=== PATIENT | male | born 1970 | race Caucasian/White ===

== ENCOUNTER 2018-03-02 01:57 | Emergency (ER) | payer SELFPAY ==
--- NOTE | 2018-03-02 02:09 | PDOC ---
History of Present Illness - General Stated Complaint: VOMITING Time Seen by Provider: 03/02/18 02:09 History Source: Patient Exam Limitations: No Limitations - History of Present Illness Initial Comments: 03/02/18 02:40 47 year old male with PMH HLD, ETOH dependence presented to ED for abdominal pain x5 days. He stated his abdominal pain is located to his entire abdomen. He admitted to abdominal fullness, nausea, vomiting, diarrhea, blood on toilet paper. He denied fever, chest pain, shortness of breath, cough. He stated he drinks 10 large beers a day, today he drank 3 large beers. He stated he has been an everyday drinker for 25 years. Allergies: NKDA Past History - Past Medical History Allergies/Adverse Reactions: Allergies Allergy/AdvReac Type Severity Reaction Status Date / Time No Known Allergies Allergy Verified 03/02/18 02:24 Home Medications: Ambulatory Orders NK [No Known Home Medication] 03/02/18 Review of Systems - Review of Systems Able to Perform ROS?: Yes Comments:: 03/02/18 02:42 General: denied fever, chills, night sweats, generalized weakness. HEENT: denied sore throat, rhinorrhea, ear pain. Heart: denied chest pain, palpitations, syncope, lower extremity swelling, diaphoresis. Respiratory: denied shortness of breath, cough, sputum production, hemoptysis. Abdomen: admitted to abdominal pain, nausea, vomiting, diarrhea, blood in stool. : denied dysuria, increased urinary frequency, hematuria, urinary incontinence , flank pain. Back: denied back pain. Musculoskeletal: denied joint pain, muscle pain, joint swelling. Neurological: denied headache, dizziness, numbness, tingling, weakness. Skin: denied rash, laceration, abrasion *Physical Exam - Physical Exam Comments: 03/02/18 02:44 Constitutional: Well-nourished, Well-developed, appearing stated age. HEENT: head is normocephalic, atraumatic. EOMI. PERRLA. Neck: supple. Full ROM. Heart: regular rhythm. no murmurs, rubs or gallops. Lungs: clear to auscultation bilaterally. no crackles, rhonchi or wheezing. no stridor. Abdomen: soft, distended. nontender to examination. normal bowel sounds. no rebound, guarding, masses. Extremities: Peripheral pulses intact. No lower extremity edema. Neurological: CN 2-12 grossly intact. Moves all four extremities. Psych: awake, alert, oriented x3. Follows commands. Answers questions appropriately. Rectal: multiple small ulcerations to perianal area. No hemorrhoids. No gross blood. ED Treatment Course - LABORATORY CBC & Chemistry Diagram: 03/02/18 02:50 03/02/18 02:50 Medical Decision Making - Medical Decision Making 03/02/18 02:45 47 year old male with above PMH presented to ED for abdominal pain associated with n/v/d/blood on toilet paper. Initial Vital Signs Temp Pulse Resp BP Pulse Ox 98.7 F 88 19 153/93 97 03/02/18 01:57 03/02/18 01:57 03/02/18 01:57 03/02/18 01:57 03/02/18 01:57 Afebrile. No tachycardia. No tachypnea. Mild hypertension. No hypoxia on room air. Blood likely from ulcerations to perianal area. Labs ordered: CBC, CMP, lipase, ammonia, ETOH level, salicyclate level, acetaminophen level Imaging ordered: CXR, CT abdomen/pelvis Medications ordered: banana bag, pepcid, maaloz, zofran 03/02/18 03:20 CBC WBC 5.0 K/mm3 (4.0-10.0) 03/02/18 02:50 RBC 4.35 M/mm3 (4.00-5.60) 03/02/18 02:50 Hgb 12.9 GM/dL (11.7-16.9) 03/02/18 02:50 Hct 36.6 % (35.4-49) 03/02/18 02:50 MCV 84.1 fl (80-96) 03/02/18 02:50 MCH 29.7 pg (25.7-33.7) 03/02/18 02:50 MCHC 35.4 g/dl (32.0-35.9) 03/02/18 02:50 RDW 13.8 % (11.9-15.9) 03/02/18 02:50 Plt Count 199 K/MM3 (134-434) 03/02/18 02:50 MPV 7.6 fl (7.5-11.1) 03/02/18 02:50 Absolute Neuts (auto) 3.1 K/mm3 (1.5-8.0) 03/02/18 02:50 Neutrophils % 61.9 % (42.8-82.8) 03/02/18 02:50 Lymphocytes % 30.5 % (8-40) 03/02/18 02:50 Monocytes % 5.8 % (3.8-10.2) 03/02/18 02:50 Eosinophils % 1.0 % (0-4.5) 03/02/18 02:50 Basophils % 0.8 % (0-2.0) 03/02/18 02:50 Nucleated RBC % 0 % (0-0) 03/02/18 02:50 No leukocytosis. No left shift. - SBP unlikely, no fever No anemia. 03/02/18 03:39 CMP Sodium 137 mmol/L (136-145) 03/02/18 02:50 Potassium 3.7 mmol/L (3.5-5.1) 03/02/18 02:50 Chloride 102 mmol/L (98-107) 03/02/18 02:50 Carbon Dioxide 26 mmol/L (21-32) 03/02/18 02:50 Anion Gap 9 MMOL/L (8-16) 03/02/18 02:50 BUN 15 mg/dL (7-18) 03/02/18 02:50 Creatinine 0.8 mg/dL (0.55-1.3) 03/02/18 02:50 Creat Clearance w eGFR > 60 (>60) 03/02/18 02:50 Random Glucose 97 mg/dL (74-106) 03/02/18 02:50 Calcium 7.2 mg/dL (8.5-10.1) L 03/02/18 02:50 Total Bilirubin 0.5 mg/dL (0.2-1) 03/02/18 02:50 AST 520 U/L (15-37) H 03/02/18 02:50 ALT 614 U/L (13-61) H 03/02/18 02:50 Alkaline Phosphatase 212 U/L (45-117) H 03/02/18 02:50 Ammonia 59.75 umol/L (11-32) H 03/02/18 02:50 Total Protein 6.8 g/dl (6.4-8.2) 03/02/18 02:50 Albumin 3.3 g/dl (3.4-5.0) L 03/02/18 02:50 Lipase 408 U/L (73-393) H 03/02/18 02:50 No electrolyte abnormalities. No ROBERT. Transaminitis. Mildly elevated ammonia. Mildly elevated lipase. CXR: no free air under diaphragm. cardiomegaly. no infiltrate. sharp costophrenic angles. no pneumothorax. - Pending official read Pending CT. 03/02/18 03:59 ETOH 303. Salicyclate negastive. Acetaminophen negative. Guiaic negative. 03/02/18 05:12 CT abdomen/pelvis report: enlarged and fatty liver. GB distended. no gallstones seen. urinary bladder overdistended. moderate bilateral hydronephrosis. - Sam ordered - No ROBERT 03/02/18 06:18 2L urine drained from catheter. Pt reported 0/10 abdominal pain. Abdomen soft, nontender. Pt to be discharged with leg bag, PCP, urology and GI follow up. *DC/Admit/Observation/Transfer Diagnosis at time of Disposition: Urinary retention, Transaminitis, Elevated lipase, EtOH dependence - Discharge Dispostion Disposition: HOME Condition at time of disposition: Improved Decision to Admit order: No - Referrals Referrals: [facility] [place] [facility] [place] [Provider Group] - Patient Instructions Printed Discharge Instructions: How to Care for Your Sam Catheter -- Male, DI for Alcohol Abuse Additional Instructions: You were seen today for abdominal pain. Your bladder was distended with urine. You have an obstruction to the outflow of your urine. You NEED to follow up with a urologist in 1-2 days. I have provided you with multiple referrals, tell them you were seen in the Emergency Department, have bladder outflow obstruction , had a catheter placed, and need a prompt appointment. Your lab work showed your drinking has affected your liver and pancreas. You NEED to follow up with a hand roller engraver in 1-2 days. I have provided you with multiple referrals. Follow up with a primary care doctor in 1-2 days. I have given you a referral for our free clinic, call today and ask for the soonest appointment, tell them you were seen in the Emergency Department, had a catheter placed, and need to be seen promptly. You are going to be discharged with the catheter in place. I have included information for how to care for the catheter. Return to the Emergency Department for increasing pain, fever, chest pain, shortness of breath or any other new, worsening or concerning symptoms. I have provided you with detox facilities you can call and go to for alcohol detox. It is dangerous to stop drinking immediately, you can have a seizure and . The number for our detox facility is . Hoy te vieron por dolor abdominal. Salcido vejiga estaba distendida con orina. Usted tiene aayush obstruccin en el flujo de salida de salcido orina. NECESITA realizar un seguimiento con un urlogo en 1 o 2 narayanan. Joann greer proporcionado mltiples referencias, dgales que lo atendieron en el Departamento de Emergencias, que tiene aayush obstruccin del flujo de la vejiga , que le colocaron un catter y que necesita aayush marcial inmediata. Salcido trabajo de laboratorio mostr que salcido consumo de alcohol pichardo afectado salcido hgado y pncreas. NECESITA realizar un seguimiento con un gastroenterlogo en 1 o 2 narayanan. Fausto greer proporcionado mltiples referencias. Raven un seguimiento con un mdico de atencin primaria en 1-2 narayanan. Joann greer dado aayush referencia para nuestra clnica gratuita, llame keviny y solicite la marcial ms rpida, dgales que lo atendieron en el Departamento de Emergencias, que le colocaron un catter y que deben ser atendidos con prontitud. Usted ser dado de eddie con el catter colocado. He incluido informacin sobre guard immigration cuidar el catter. Regrese al Departamento de Emergencias para aumentar el dolor, la fiebre, el dolor en el pecho, la falta de aliento o cualquier otro sntoma nuevo, que empeore o relacionado. Joann greer proporcionado instalaciones de desintoxicacin a las que puede llamar y acudir a la desintoxicacin de alcohol. Es peligroso dejar de beber inmediatamente, puede sufrir aayush convulsin y morir. El nmero de nuestras instalaciones de desintoxicacin es . Print Language: THAI - Post Discharge Activity
[2018-03-02 02:23] VITALS: BP 153/93; PULSE 88; TEMP 98.7; BMI 36.1
[2018-03-02] MEDS ORDERED: FAMOTIDINE 20 MG/50 ML IVPB 20 MG/50 ML MG IVPB ONE ×2 (02:47→03:06)
[2018-03-02] MEDS ORDERED: MAG HYDROX/AL HYDROX/SIMETH 30 ML UNIT-DOSE CUP PO ONE (02:47)
[2018-03-02] MEDS ORDERED: ONDANSETRON 4 MG/2 ML VIAL IVPUSH ONE (02:47)
[2018-03-02] MEDS ORDERED: FOLIC ACID INJECTION - 1 MG, THIAMINE HCL 100 MG, MULTIVIT INJECTION ADULT 10 ML in SOD... IVPB ONE (02:47)
[2018-03-02 03:05] LABS: BASO % 0.8 % (0-2.0); HEMATOCRIT 36.6 % (35.4-49); HEMOGLOBIN 12.9 GM/dL (11.7-16.9); LYMPH % 30.5 % (8-40); MCH 29.7 pg (25.7-33.7); MCHC 35.4 g/dl (32.0-35.9); MEAN CELL VOLUME 84.1 fl (80-96); MEAN PLT VOLUME 7.6 fl (7.5-11.1); MONO % 5.8 % (3.8-10.2); NEUT % 61.9 % (42.8-82.8); PLATELET COUNT 199 K/MM3 (134-434); RBC 4.35 M/mm3 (4.00-5.60); RDW 13.8 % (11.9-15.9)
[2018-03-02] MEDS ORDERED: MAG HYDROX/AL HYDROX/SIMETH 30 ML UNIT-DOSE CUP ONE (03:05)
[2018-03-02] MEDS ORDERED: ONDANSETRON 4 MG/2 ML VIAL ONE (03:06)
[2018-03-02 03:20] LABS: INR 1.07 (0.83-1.09); PROTHROMBIN TIME (PATIENT) 12.6 SEC (9.7-13.0)
[2018-03-02 03:23] LABS: ACTIVATED PTT 28.6 SECONDS (25.2-36.5)
[2018-03-02 03:25] LABS: ALBUMIN 3.3 g/dl (3.4-5.0); ALK PHOS 212 U/L (45-117); ANION GAP 9 MMOL/L (8-16); BILIRUBIN,TOTAL 0.5 mg/dL (0.2-1); BLOOD UREA NITROGEN 15 mg/dL (7-18); CALCIUM 7.2 mg/dL (8.5-10.1); CHLORIDE 102 mmol/L (98-107); CO2 26 mmol/L (21-32); CREATININE 0.8 mg/dL (0.55-1.3); GLUCOSE,RANDOM 97 mg/dL (74-106); LIPASE 408 U/L (73-393); POTASSIUM 3.7 mmol/L (3.5-5.1); SGOT/AST 520 U/L (15-37); SGPT/ALT 614 U/L (13-61); SODIUM 137 mmol/L (136-145); TOT PROT 6.8 g/dl (6.4-8.2)
--- NOTE | 2018-03-02 04:23 | PDOC ---
Attending Attestation - Resident Resident Name: Kristie Villa - ED Attending Attestation I have performed the following: I have examined & evaluated the patient, The case was reviewed & discussed with the resident, I agree w/resident's findings & plan, Exceptions are as noted - HPI HPI: 03/02/18 04:18 47M daily drinker here with 5 days of worsening n/v/d and diffuse abd px, notes BRB on toilet paper but nothing in toilet - Physicial Exam PE: 03/02/18 04:22 Agree with exam as documented by resident - Medical Decision Making 03/02/18 04:27 Chronic drinker with acutely worsening abd px for the last several days a/w n/v/ d Consider gastroenteritis vs pancreatitis, sbp less likely f/u labs, imaging 03/02/18 06:27 Transaminitis, no bili, vs wnl On re-evaluation after quintero drained 2L of clear yellow urine pt states abd px is resolved no focal tenderness in any quadrant DC with quintero in place, uro f/u, gi f/u
[2018-03-02 06:07] LABS: URINE APPEARANCE CLEAR; URINE BILIRUBIN NEGATIVE (<2.0 mg/dL); URINE COLOR LTYELLOW; URINE GLUCOSE (UA) NEGATIVE (NEGATIVE); URINE KETONE NEGATIVE (NEGATIVE); URINE LEUK ESTERASE NEGATIVE (NEGATIVE); URINE NITRITE NEGATIVE (NEGATIVE); URINE PROTEIN NEGATIVE (NEGATIVE); URINE UROBILINOGEN NEGATIVE mg/dL (0.2-1.0)
== END 2018-03-02 07:11 | disposition home or self-care (01) ==
LOC: JER 01:57
PROC: 3E033GC Introduction of Other Therapeutic Substance into Peripheral Vein, Percutaneous Approach (ICD-10-PCS; principal; 2018-03-02)
DX: R74.0 Nonspecific elevation of levels of transaminase and lactic acid dehydrogenase [LDH] (principal); R74.9 Abnormal serum enzyme level, unspecified; R33.9 Retention of urine, unspecified; F10.20 Alcohol dependence, uncomplicated
CPT/HCPCS: 36415; 71046-TC-FY; 74177-TC; 80053; 80307; 81003; 81015; 82140; 82272; 83690; 85025; 85610; 85730; 86850; 86900; 86901; 87086; 96365; 96368; 96375; 99284-25; J7030

== ENCOUNTER 2018-03-06 01:44 | Inpatient (IN) | payer OTHER ==
[2018-03-06] MEDS ORDERED: SODIUM CHLORIDE 0.9% 500 ML INFUS.BAG IV ONE (02:32)
[2018-03-06] MEDS ORDERED: METOCLOPRAMIDE HCL INJECTION 10 MG/2 ML VIAL IVPUSH ONE (02:32)
[2018-03-06] MEDS ORDERED: METOCLOPRAMIDE HCL INJECTION 10 MG/2 ML VIAL ONE (02:41)
--- NOTE | 2018-03-06 02:47 | PDOC ---
Attending Attestation - Resident Resident Name: BasilioDamon - ED Attending Attestation I have performed the following: I have examined & evaluated the patient, The case was reviewed & discussed with the resident, I agree w/resident's findings & plan, Exceptions are as noted - HPI HPI: 03/06/18 02:42 47-year-old male history of EtOH abuse and urinary retention currently with an indwelling catheter here today complaining of headache and chest pain. Patient states he had been drinking heavily for the last 2 weeks hasn't had a drink since yesterday at 5 PM states that he would like to stop drinking. Since that time he has had chest pain and headaches. He was seen at [facility] earlier today was given a pill states he felt better and went home but when he got home started having severe headache and chest pain again. He states that he has not fallen and hit his head recently however his partner who is here states that he may have fallen recently states he usually drinks a bottle of Bacardi a day no known history of liver disease no fevers no chills does have a family history of an uncle who had heart disease and had an [place] in his 80s patient states he used to smoke but had quit many years ago does not take any perception medications - Physicial Exam PE: 03/06/18 02:45 Awake alert no acute distress head is atraumatic lungs are clear bilaterally heart is regular without any murmurs rubs or gallops abdomen is soft he is mild epigastric right upper quadrant tenderness skin is warm and dry extremities are warm and well-perfused no edema or logically the pain is awake alert and oriented patient does have indwelling Sam catheter with a leg today showing concentrated dark urine - Medical Decision Making 03/06/18 02:46 Differential diagnosis includes ICH electrolyte abnormality renal failure anemia ACS reflux pancreatitis cholelithiasis or cholecystitis plan CT had we' ll workup patient's chest pain with an EKG chest x-ray labs including a troponin we will hold aspirin pending the CT had. Patient will require a right upper quadrant ultrasound CBC CMP lipase 03/06/18 06:36 focused ED ultrasoud RUQ performed, indication abnormal LfT gallbladder wall no thickening no edema. no noted gallstones. mild sludge. no pericholecystic fluid. neg murpy's cbd <4mm, wall < 4mm. impression: normal gallbladder. plat pt with ct head mass, consulted nuersurgery. will admit . chest pain r/o acs, labs otherwise unremarkable. Heart Score/ECG Review #1 ECG reviewed & interpreted by me at: 02:48 General ECG Interpretation: Sinus Rhythm, Normal Intervals, No acute ischemic changes Compared to previous ECG there are: Other (sinus tachycardia 113.)
--- NOTE | 2018-03-06 02:48 | PDOC ---
History of Present Illness <Anastasia Singleton - Last Filed: 03/06/18 05:47> - General History Source: Patient Exam Limitations: No Limitations - History of Present Illness Initial Comments: 03/06/18 02:48 47 yo M with a hx of alcoholism (endorses hx of withdrawals) and urinary retention (currently has quintero for less than week) presents to the emergency department with headache and chest pain. Per the patient, he was seen at [facility] earlier yesterday for alcohol intoxication after having his last drink at 5pm the day prior. He was given "a pill that made me feel better" but denies he was worked up for the chest pain he was having. His chest pain ceased and then came back with concurrent severe headaches. He denies falling, however his female night assistant at bedside states he could have fallen. The patient endorses having fevers. Known alcohol consumption is 1 bottle of bacardi daily with a positive familial hx (uncle) of [place]. Endorses general malaise and nausea. Pmhx: Refer to above Meds: None Allergies: NKDA Social: Refer to above for alcohol. Denies tobacco and substance abuse. <Damon Richmond - Last Filed: 03/06/18 08:40> - General Chief Complaint: Alcohol intoxication Stated Complaint: CHEST PAIN Past History <Anastasia Singleton - Last Filed: 03/06/18 05:47> - Past Medical History COPD: No - Suicide/Smoking/Psychosocial Hx Smoking History: Never smoked Have you smoked in the past 12 months: No Information on smoking cessation initiated: No Hx Alcohol Use: No Drug/Substance Use Hx: No <Damon Richmond - Last Filed: 03/06/18 08:40> - Past Medical History Allergies/Adverse Reactions: Allergies Allergy/AdvReac Type Severity Reaction Status Date / Time No Known Allergies Allergy Verified 03/02/18 02:24 Home Medications: Ambulatory Orders NK [No Known Home Medication] 03/02/18 Review of Systems - Review of Systems Able to Perform ROS?: Yes Is the patient limited Grenadian proficient: No Constitutional: Yes: Fever, Weakness. No: Chills, Diaphoresis HEENTM: No: Recent change in vision, Ear Pain, Nose Pain, Throat Pain, Mouth Pain Respiratory: No: Cough, Shortness of Breath Cardiac (ROS): Yes: Chest Pain. No: Lightheadedness, Palpitations, Syncope ABD/GI: Yes: Nausea. No: Constipated, Diarrhea, Rectal Bleeding, Vomiting, Tarry Stools : No: Burning, Dysuria, Hematuria Musculoskeletal: No: Back Pain Integumentary: No: Rash Neurological: Yes: Headache. No: Tremors, Ataxia Psychiatric: No: Stressors <Damon Richmond - Last Filed: 03/06/18 08:40> *Physical Exam - Vital Signs Last Vital Signs Temp Pulse Resp BP Pulse Ox 99.3 F 85 18 120/85 96 03/06/18 02:02 03/06/18 02:02 03/06/18 02:02 03/06/18 02:02 03/06/18 02:02 <Anastasia Singleton - Last Filed: 03/06/18 05:47> - Vital Signs Last Vital Signs Temp Pulse Resp BP Pulse Ox 99.3 F 85 18 120/85 96 03/06/18 02:02 03/06/18 02:02 03/06/18 02:02 03/06/18 02:02 03/06/18 02:02 - Physical Exam General Appearance: Yes: Nourished, Appropriately Dressed, Disheveled, Alcohol on Breath. No: Apparent Distress HEENT: positive: EOMI, [place], Normal Voice, Symmetrical, Hearing Grossly Normal. negative: Pale Conjunctivae, Scleral Icterus (R), Scleral Icterus (L), Muffled /Hoarse voice, Excessive drooling Neck: positive: Trachea midline. negative: Tender Respiratory/Chest: positive: Lungs Clear, Normal Breath Sounds. negative: Chest Tender, Respiratory Distress, Accessory Muscle Use Cardiovascular: positive: Regular Rhythm, Regular Rate, S1, S2. negative: Systolic Murmur Gastrointestinal/Abdominal: positive: Normal Bowel Sounds, Tender (epigastric, periumbilical, RUQ), Flat, Soft. negative: Distended Male Genitalia: positive: other (catheter in place. urine is orange ) Lymphatic: negative: Adenopathy Musculoskeletal: positive: Normal Inspection. negative: CVA Tenderness Extremity: positive: Normal Capillary Refill, Normal Inspection, Normal Range of Motion. negative: Tender Integumentary: positive: Normal Color, Dry, Warm Neurologic: positive: hat parts cutter machine II-XII NML intact, Alert, Normal Mood/Affect, Normal Response <Damon Richmond - Last Filed: 03/06/18 08:40> Moderate Sedation - Procedure Monitoring Vital Signs: Procedure Monitoring Vital Signs Temperature 99.3 F 03/06/18 02:02 Pulse Rate 85 03/06/18 02:02 Respiratory Rate 18 03/06/18 02:02 Blood Pressure 120/85 03/06/18 02:02 O2 Sat by Pulse Oximetry (%) 96 03/06/18 02:02 <Anastasia Singleton - Last Filed: 03/06/18 05:47> - Procedure Monitoring Vital Signs: Procedure Monitoring Vital Signs Temperature 99.3 F 03/06/18 02:02 Pulse Rate 85 03/06/18 02:02 Respiratory Rate 18 03/06/18 02:02 Blood Pressure 120/85 03/06/18 02:02 O2 Sat by Pulse Oximetry (%) 96 03/06/18 02:02 <Damon Richmond - Last Filed: 03/06/18 08:40> ED Treatment Course - LABORATORY CBC & Chemistry Diagram: 03/06/18 02:44 03/06/18 02:44 - ADDITIONAL ORDERS Additional order review: Laboratory Results 03/06/18 03/06/18 03/06/18 02:55 02:44 02:44 Sodium 136 Potassium 3.4 L Chloride 99 Carbon Dioxide 24 Anion Gap 13 BUN 18 Creatinine 0.8 Creat Clearance w eGFR > 60 Random Glucose 142 H Calcium 6.6 L* Total Bilirubin 1.1 H AST 311 H ALT 321 H Alkaline Phosphatase 225 H Creatine Kinase 381 H Creatine Kinase Index 1.3 CK-MB (CK-2) 5.3 H Troponin I 0.09 H Total Protein 7.0 Albumin 3.0 L Lipase 556 H Urine Color Michelle Urine Appearance Clear Urine pH 6.0 Ur Specific [place] 1.025 Urine Protein 2+ H Urine Glucose (UA) Negative Urine Ketones Trace H Urine Blood 3+ H Urine Nitrite Negative Urine Bilirubin Negative Urine Urobilinogen 4.0 e.u/dl Ur Leukocyte Esterase 2+ H Urine WBC (Auto) 31 Urine RBC (Auto) 69 Urine Bacteria Rare Urine Mucus Rare Alcohol, Quantitative 213.8 H 03/06/18 02:44 RBC 4.72 MCV 82.9 MCHC 35.4 RDW 14.6 MPV 7.4 L Neutrophils % 69.8 Lymphocytes % 21.2 D Monocytes % 7.9 Eosinophils % 0.2 Basophils % 0.9 - RADIOLOGY Radiology Studies Ordered: Category Date Time Status HEAD CT WITHOUT CONTRAST [CT] Stat CT Scan 03/06/18 02:30 Taken - Medications Given in the ED: ED Medications Discontinued Medications Generic Name Dose Route Start Last Admin Trade Name Shandra PRN Reason Stop Dose Admin Lorazepam 2 mg 03/06/18 04:37 03/06/18 04:45 Ativan Injection - IVPUSH 03/06/18 04:38 2 mg ONCE ONE Administration Metoclopramide HCl 10 mg 03/06/18 02:32 03/06/18 02:55 Reglan Injection - IVPUSH 03/06/18 02:33 10 mg ONCE ONE Administration Sodium Chloride 1,000 ml 03/06/18 02:32 03/06/18 02:54 Normal Saline - IV 03/06/18 02:33 1,000 ml ONCE ONE Administration <Anastasia Singleton - Last Filed: 03/06/18 05:47> - LABORATORY CBC & Chemistry Diagram: 03/06/18 07:05 03/06/18 07:05 <Damon Richmond - Last Filed: 03/06/18 08:40> Medical Decision Making - Medical Decision Making 47 yo M with a hx of alcoholism (endorses hx of withdrawals) and urinary retention (currently has quintero for less than week) presents to the emergency department with headache and chest pain. Initial vitals: Initial Vital Signs Temp Pulse Resp BP Pulse Ox 99.3 F 85 18 120/85 96 03/06/18 02:02 03/06/18 02:02 03/06/18 02:02 03/06/18 02:02 03/06/18 02:02 Work up: patient presents to the emergency department with intoxication with complaints of headaches and episodic chest pain that occurred earlier in the day with concurrent symptoms of visual changes but denies nausea and vomiting. headache: possible fall r/o intracranial bleed vs hydrocephalus vs mass effect vs withdrawal from alcohol chest pain: r/o ACS, infectious etiology (PNA) Laboratory Tests 03/06/18 03/06/18 03/06/18 02:44 02:44 02:55 WBC 7.8 RBC 4.72 Hgb 13.9 Hct 39.2 MCV 82.9 MCH 29.3 MCHC 35.4 RDW 14.6 Plt Count 184 MPV 7.4 L Absolute Neuts (auto) 5.5 Neutrophils % 69.8 Lymphocytes % 21.2 D Monocytes % 7.9 Eosinophils % 0.2 Basophils % 0.9 Nucleated RBC % 0 Sodium 136 Potassium 3.4 L Chloride 99 Carbon Dioxide 24 Anion Gap 13 BUN 18 Creatinine 0.8 Creat Clearance w eGFR > 60 Random Glucose 142 H Calcium 6.6 L* Total Bilirubin 1.1 H AST 311 H ALT 321 H Alkaline Phosphatase 225 H Creatine Kinase 381 H Creatine Kinase Index 1.3 CK-MB (CK-2) 5.3 H Troponin I 0.09 H Total Protein 7.0 Albumin 3.0 L Lipase 556 H Urine Color Michelle Urine Appearance Clear Urine pH 6.0 Ur Specific [place] 1.025 Urine Protein 2+ H Urine Glucose (UA) Negative Urine Ketones Trace H Urine Blood 3+ H Urine Nitrite Negative Urine Bilirubin Negative Urine Urobilinogen 4.0 e.u/dl Ur Leukocyte Esterase 2+ H Urine WBC (Auto) 31 Urine RBC (Auto) 69 Urine Bacteria Rare Urine Mucus Rare 03/06/18 04:35 Call was placed to Dr. Zurita at approximately 4:20 am. Will await call back. 03/06/18 04:51 Dr. Zurita states no steroids or seizure prophylaxis needed. 03/06/18 08:40 <Damon Richmond - Last Filed: 03/06/18 08:40> *DC/Admit/Observation/Transfer - Discharge Dispostion Decision to Admit order: Yes <Anastasia Singleton - Last Filed: 03/06/18 05:47> <Damon Richmond - Last Filed: 03/06/18 08:40> Diagnosis at time of Disposition: Brain mass, Alcohol withdrawal, Chest pain
[2018-03-06 02:57] LABS: BASO % 0.9 % (0-2.0); EOS % 0.2 % (0-4.5); HEMATOCRIT 39.2 % (35.4-49); HEMOGLOBIN 13.9 GM/dL (11.7-16.9); LYMPH % 21.2 % (8-40); MCH 29.3 pg (25.7-33.7); MCHC 35.4 g/dl (32.0-35.9); MEAN CELL VOLUME 82.9 fl (80-96); MEAN PLT VOLUME 7.4 fl (7.5-11.1); MONO % 7.9 % (3.8-10.2); NEUT % 69.8 % (42.8-82.8); PLATELET COUNT 184 K/MM3 (134-434); RBC 4.72 M/mm3 (4.00-5.60); RDW 14.6 % (11.9-15.9); WHITE BLOOD COUNT 7.8 K/mm3 (4.0-10.0)
[2018-03-06 03:03] LABS: URINE APPEARANCE CLEAR; URINE BILIRUBIN NEGATIVE (<2.0 mg/dL); URINE COLOR AMBER; URINE GLUCOSE (UA) NEGATIVE (NEGATIVE); URINE KETONE TRACE (NEGATIVE); URINE LEUK ESTERASE 2+ (NEGATIVE); URINE NITRITE NEGATIVE (NEGATIVE); URINE PROTEIN 2+ (NEGATIVE); URINE UROBILINOGEN 4.0 E.U/dl mg/dL (0.2-1.0)
[2018-03-06 03:07] LABS: URINE BACTERIA RARE /hpf (NONE SEEN); URINE MUCUS RARE
[2018-03-06 03:45] LABS: ALK PHOS 225 U/L (45-117); ANION GAP 13 MMOL/L (8-16); BILIRUBIN,TOTAL 1.1 mg/dL (0.2-1); BLOOD UREA NITROGEN 18 mg/dL (7-18); CHLORIDE 99 mmol/L (98-107); CO2 24 mmol/L (21-32); CREATININE 0.8 mg/dL (0.55-1.3); GLUCOSE,RANDOM 142 mg/dL (74-106); LIPASE 556 U/L (73-393); POTASSIUM 3.4 mmol/L (3.5-5.1); SGOT/AST 311 U/L (15-37); SGPT/ALT 321 U/L (13-61); SODIUM 136 mmol/L (136-145)
[2018-03-06 03:49] LABS: CALCIUM 6.6 mg/dL (8.5-10.1)
[2018-03-06] MEDS ORDERED: LORazepam 2 MG/ML SDV VIAL ONE (04:40)
[2018-03-06] MEDS ORDERED: CALCIUM GLUCONATE 10% - 1,000 MG/10 ML VIAL IVPB ONE (05:54)
--- NOTE | 2018-03-06 06:05 | HP ---
CHIEF COMPLAINT: headache, chest pain PCP: HISTORY OF PRESENT ILLNESS: Patient is a 47 y/o M w/ PMHx EtOH abuse, urinary retention, presents with headache and chest pain. Per chart review, was seen at [facility] for intoxication, last drink was 5pm the day prior, drinks 1 bottle bacardi daily, was given unspecified treatment that made him feel better but did not have CP worked up. Previously came to [facility] ED on 03/02 for w/u of abd pain, CT a /p at that time showed hepatic steatosis and distended GB and LFTs were grossly elevated; also had quintero placed for urinary retention prior to d/c. Given ativan in ED and was in lethargic, non-arousable condition following ativan administration. CT head w/o contrast demonstrated 2.3 x 1.9 x 1.7cm parafalcine mass suggestive of meningioma. NeuroSx was consulted, recommended no steroids or seizure prophylaxis. Labs on presentation significant for initial troponin 0.09, LFTs grossly elevated but improved vs 03/02, alcohol 213.8, UA newly positive vs. 03/02 quintero placement, Ca 6.6, K 3.4. EKG sinus tachy w/ old anterior infarct, VS stable at time of encounter, repeat pending. ER course was notable for: (1) newly found meningioma (2) elevated LFTs (3) positive UA Recent Travel: PAST MEDICAL HISTORY: As per HPI PAST SURGICAL HISTORY: unknown Social History: (per chart review) Smoking: no Alcohol: daily bottle of rum Drugs: no Family History: Allergies No Known Allergies Allergy (Verified 03/02/18 02:24) HOME MEDICATIONS: Home Medications Medication Instructions Recorded NK [No Known Home Medication] 03/02/18 REVIEW OF SYSTEMS Could not obtain from sedated patient PHYSICAL EXAMINATION Vital Signs - 24 hr 03/06/18 02:02 Temperature 99.3 F Pulse Rate 85 Respiratory 18 Rate Blood Pressure 120/85 O2 Sat by Pulse 96 Oximetry (%) GENERAL: Sedated on ativan, does not alert to vigorous sternal rub HEAD: atraumatic EYES: could not assess EARS, NOSE, THROAT: could not assess NECK: no JVD, no LAD LUNGS: clear anterior benavides HEART: RRR no m/r/g ABDOMEN: +bs, soft, no pain response to deep palpation MUSCULOSKELETAL: could not assess UPPER EXTREMITIES: 2+ pulses, wwp LOWER EXTREMITIES: 2+ pulses, wwp NEUROLOGICAL: moving 4 extremities simultaneously, no spasticity or rigidity PSYCHIATRIC: could not assess Laboratory Results - last 24 hr 03/06/18 03/06/18 03/06/18 02:44 02:44 02:44 WBC 7.8 RBC 4.72 Hgb 13.9 Hct 39.2 MCV 82.9 MCH 29.3 MCHC 35.4 RDW 14.6 Plt Count 184 MPV 7.4 L Absolute Neuts (auto) 5.5 Neutrophils % 69.8 Lymphocytes % 21.2 D Monocytes % 7.9 Eosinophils % 0.2 Basophils % 0.9 Nucleated RBC % 0 Sodium 136 Potassium 3.4 L Chloride 99 Carbon Dioxide 24 Anion Gap 13 BUN 18 Creatinine 0.8 Creat Clearance w eGFR > 60 Random Glucose 142 H Calcium 6.6 L* Total Bilirubin 1.1 H AST 311 H ALT 321 H Alkaline Phosphatase 225 H Creatine Kinase 381 H Creatine Kinase Index 1.3 CK-MB (CK-2) 5.3 H Troponin I 0.09 H Total Protein 7.0 Albumin 3.0 L Lipase 556 H Urine Color Urine Appearance Urine pH Ur Specific Garner Urine Protein Urine Glucose (UA) Urine Ketones Urine Blood Urine Nitrite Urine Bilirubin Urine Urobilinogen Ur Leukocyte Esterase Urine WBC (Auto) Urine RBC (Auto) Urine Bacteria Urine Mucus Alcohol, Quantitative 213.8 H 03/06/18 02:55 WBC RBC Hgb Hct MCV MCH MCHC RDW Plt Count MPV Absolute Neuts (auto) Neutrophils % Lymphocytes % Monocytes % Eosinophils % Basophils % Nucleated RBC % Sodium Potassium Chloride Carbon Dioxide Anion Gap BUN Creatinine Creat Clearance w eGFR Random Glucose Calcium Total Bilirubin AST ALT Alkaline Phosphatase Creatine Kinase Creatine Kinase Index CK-MB (CK-2) Troponin I Total Protein Albumin Lipase Urine Color Michelle Urine Appearance Clear Urine pH 6.0 Ur Specific Garner 1.025 Urine Protein 2+ H Urine Glucose (UA) Negative Urine Ketones Trace H Urine Blood 3+ H Urine Nitrite Negative Urine Bilirubin Negative Urine Urobilinogen 4.0 e.u/dl Ur Leukocyte Esterase 2+ H Urine WBC (Auto) 31 Urine RBC (Auto) 69 Urine Bacteria Rare Urine Mucus Rare Alcohol, Quantitative ASSESSMENT/PLAN: 47 y/o M w/ PMHx EtOH abuse and urinary retention, p/w chest pain and headache per signout, additionally found to have meningioma, evaluation limited by sedation. #CP -troponemia likely 2/2 demand ischemia, trend troponins -repeat EKG -echocardiogram -cardiac monitoring #LFT abnormalities/GB distention -RUQ US pending -consider MRCP -likely alcoholic hepatitis #meningioma -neuro checks q2h -may be causing headaches, however requires full neuro evaluation after weaning from ativan -treatment only indicated if symptoms can be established -NeuroSx consulted, recommends no steroids or seizure PPx at this time -SRS may be more appropriate treatment given pt's comorbidities, consider radiation oncology consult, will require brain MRI for rad onc referral #electrolyte abnormalities -1g Ca gluconate -K riders x 2 -obtain ionized Ca -trend lytes #alcohol detox -CIWA q4h, notify MD if >8 #UTI -likely 2/2 quintero -quintero change needed -initiated ceftriaxone #FEN -no IVF -monitor and replete lytes -NPO pending NeuroSx evaluation #PPx -DVT: SCDs, no pharmacologic AC pending NeuroSx evaluation -GI: not indicated #code -full #dispo Visit type - Emergency Visit Emergency Visit: Yes Care time: The patient presented to the Emergency Department on the above date and was hospitalized for further evaluation of their emergent condition. - New Patient This patient is new to me today: Yes Date on this admission: 03/06/18 - Critical Care Critical Care patient: No
--- NOTE | 2018-03-06 06:09 | PN ---
Teaching Attending Note Name of Resident: Daryl Arnold ATTENDING PHYSICIAN STATEMENT I saw and evaluated the patient. I reviewed the resident's note and discussed the case with the resident. I agree with the resident's findings and plan as documented. SUBJECTIVE: Seen and examined; please see resident note for further information. Unfortunately when I went to see the patient with my residents he had just recieved Ativan and was frankly unable to provide a history, waking up to tactile stimulation/noxious stimulation briefly then falling back asleep, snoring loudly. No family/friends present to reach. I spoke to ER Attending and resident of record at length regarding the overall care of the patient and thus the history is per their note. Briefly, he was just here for urinary retention and abdominal pain; had a quintero placed and was brought home. He comes back today with documented history as follows per Dr. Singleton: "47-year- old male history of EtOH abuse and urinary retention currently with an indwelling catheter here today complaining of headache and chest pain. Patient states he had been drinking heavily for the last 2 weeks hasn't had a drink since yesterday at 5 PM states that he would like to stop drinking. Since that time he has had chest pain and headaches. He was seen at [facility] earlier today was given a pill states he felt better and went home but when he got home started having severe headache and chest pain again. He states that he has not fallen and hit his head recently however his partner who is here states that he may have fallen recently states he usually drinks a bottle of Bacardi a day no known history of liver disease no fevers no chills does have a family history of an uncle who had heart disease and had an MD in his 80s patient states he used to smoke but had quit many years ago does not take any perception medications." Additional history to be obtained from the patient when he is able to actually provide meaningful history. Admit to medicine service with neurosurgery consult. He does still have his quintero in but wiht no new urological sx can likely followup outpatient with uro. 10 sys ROS couldn't be done due to his mentation PMH and PSH reviewed from chart FH not obtained due to mental status Socially he is a daily drinker per his chart and has been for years; need to confirm the rest of his social history when he is able to provide it Medications could not be confirmed with patient due to mental status OBJECTIVE: VS, labs, imaging reviewed NAD, arousable to noxious stimuli but sleeping and snoring loudly RRR s1/2 no mgr Lungs CTAB but limited exam Abdomen appears nontender but couldn't fully assess due to mentation; nondistended, positive bowel sounds Full neuro exam difficult due to mentation. Reflexes normal, muscle tone is normal, and he does spontaneously move all his extremities. Couldn't fully assess sensorium but given his response to noxious stimuli assumed intact. Couldn't assess gait or cerebellar signs. PERRLA, EOMI. Speech is garbled, downgoing babinski reflex noted Labs show an unremarkable CBC; chemistry significant for K of 3.4, glucose 142. Calcium 6.6 uncorrected with albumin of 3.0, Bili is 1.1 (elevated from earlier this week which was normal). AST and ALT are 311/321 which is slightly lower than last week. Ammonia elevated last week to 59.75. CK elevated to 381 today with CKMB elevated to 5.3 with a CK index of 1.3. Troponin slightly above upper limit of normal at 0.09 with lipase 556 (was 408, neither of them technically qualifying as pancreatitis by lab values alone). Alcohol positive at 213. Imaging shows a 2x2 mass in the frontal lobe consistent with a meningioma; MRI is pending US Abdomen pending Echo pending EKG reviewed No prior echo/cath/stress/scope reports ASSESSMENT AND PLAN: Mr. Torres is currently altered and cannot provide a history but is here for chest pain/abdominal pain and headache found to have a likely meningioma 1) Meningioma -ER spoke with neurosurgery who will see him today. Doens't appear to be unstable with normal VS. Will place on stroke unit with q2H neuro checks and seizure precautions. NSGY advised against steroids/keppra. Will followup on their recs. Can also consider gamma knife, etc. but we need MRI w/wo so this was ordered and is pending -Need fully involved neuro exam with better mentation to fully delineate symptomatology, etc. 2) Chest Pain -Given alcohol, EtOH, etc. history he is at high risk for ACS. EKG results noted; early repol, etc. Difficult to tell if he is having any chest pain due to current mentation. Monitor on telemetry, trend troponin, and stratify risks with TSH, A1c, Lipids and start any appropriate therapies. Furthermore, he appears to have cardiomegaly on his CXR so will go ahead and check an echo- given his long history of alcohol abuse he has high risk of a dilated CM. 3) Headaches -Could be due to intoxication, #1, etc. Need to let him get sober and re- evaluate. Difficult to characterize. -PRN management for now; likely will change when more data available 4) Potential Cystitis -IV Ceftriaxone for now; followup blood and urine cultures. Can't assess if symptomatic but new quintero is definitely a source. Exchange quintero. Followup with urology as outpatient. Not appearing septic at this juncture 5) Hepatitis (likely alcoholic) with hyperbilirubinemia and distended gallbladder, hepatic steatosis and developing cirrhosis -Likely 2/2 EtOH but want to rule out any underlying hepatitis, hepatobiliary pathology. Checking ESR/CRP, checking RUQ u/s. Dilated GB seen on my bedside exam that was also seen on prior CT. Check hepatitis pannel, HIV. -Discriminate score doesn't endorse necessity of steroids -Lipase elevated could be due to the drinking; he doesn't have any zaki signs of biliary obstruction and isn't febrile, but of course will be cautious in the setting of elevated LFTs including bili with lipase. Monitor CMP and consider MRCP and GI consultation. 6) Alcohol Abuse -CIWA protocol with Ativan (librium contraindicated in this case) 7) Elevated Lipase -Discussed above; not frankly at pancreatitis levels. LR@75cc/hr and monitor clinically 8) Hyperglycemia -Checking A1c, SSI if needed 9) Hypokalemia/calcemia -Repleting; check ionized Ca 10) Elevated Ammonia -Consider starting on lactulose; assess for asterixis when ativan wears off 11) AMS -He just got ativan prior to medicine being called for admission which explains his presentation now; needs re-examined and reassessed. He has many different reasons for AMS (encephalopathy from developing ESLD, meningioma, EtOH WD, EtOH intoxication) so it is important to keep these clearly sorted. 12) Urinary Retention -Exchange quintero and followup with urology as outpatient. FENA -LR@75 -PRN replete -NPO until mentation improves -Reassess when mentation improves Full Code
[2018-03-06] MEDS ORDERED: KCL 10 MEQ IVPB 10 MEQ/100 ML INFUS.BAG IVPB ONE ×2 (06:30→08:40)
[2018-03-06] MEDS: KCL 10 MEQ IVPB 10 MEQ/100 ML INFUS.BAG IVPB SCH ×2 (06:37→08:45)
[2018-03-06] MEDS: LACTATED RINGERS SOLUTION 1,000 ML/1,000 ML INFUS.BAG IV SCH ×2 (06:52→21:15)
[2018-03-06 07:17] LABS: BASO % 0.7 % (0-2.0); EOS % 0.3 % (0-4.5); HEMATOCRIT 35.2 % (35.4-49); HEMOGLOBIN 12.4 GM/dL (11.7-16.9); LYMPH % 20.7 % (8-40); MCH 29.3 pg (25.7-33.7); MCHC 35.1 g/dl (32.0-35.9); MEAN CELL VOLUME 83.3 fl (80-96); MEAN PLT VOLUME 7.5 fl (7.5-11.1); MONO % 5.5 % (3.8-10.2); NEUT % 72.8 % (42.8-82.8); PLATELET COUNT 137 K/MM3 (134-434); RBC 4.23 M/mm3 (4.00-5.60); RDW 14.5 % (11.9-15.9); WHITE BLOOD COUNT 5.4 K/mm3 (4.0-10.0)
[2018-03-06 07:43] LABS: INR 1.15 (0.83-1.09); PROTHROMBIN TIME (PATIENT) 13.6 SEC (9.7-13.0)
[2018-03-06 07:46] LABS: ACTIVATED PTT 31.6 SECONDS (25.2-36.5)
[2018-03-06 07:58] LABS: ALBUMIN 2.6 g/dl (3.4-5.0); ALK PHOS 205 U/L (45-117); ANION GAP 10 MMOL/L (8-16); BLOOD UREA NITROGEN 15 mg/dL (7-18); CHLORIDE 102 mmol/L (98-107); CO2 26 mmol/L (21-32); CREATININE 0.6 mg/dL (0.55-1.3); GLUCOSE,RANDOM 99 mg/dL (74-106); MAGNESIUM 1.7 mg/dL (1.8-2.4); PHOSPHOROUS 2.5 mg/dL (2.5-4.9); POTASSIUM 3.5 mmol/L (3.5-5.1); SGOT/AST 260 U/L (15-37); SGPT/ALT 282 U/L (13-61); SODIUM 139 mmol/L (136-145)
[2018-03-06 08:08] LABS: CHOLESTEROL 189 mg/dL (50-200); HDL CHOLESTEROL 14 mg/dL (40-60); TRIGLYCERIDES 1149 mg/dL (0-150)
[2018-03-06] MEDS ORDERED: FOLIC ACID INJECTION - 1 MG, THIAMINE HCL 100 MG, MULTIVIT INJECTION ADULT 10 ML in SOD... IVPB ONE ×2 (09:11→09:12)
[2018-03-06] MEDS ORDERED: LORazepam 2 MG/ML SDV VIAL IVPUSH PRN (09:35)
[2018-03-06] MEDS ORDERED: MAGNESIUM SULF 50% (8.12 MEQ/2 ML-1 GM VIAL) IVPB ONE (09:37)
--- NOTE | 2018-03-06 09:48 | EKG ---
Test Reason : Blood Pressure : / mmHG Vent. Rate : 077 BPM Atrial Rate : 077 BPM P-R Int : 194 ms QRS Dur : 094 ms QT Int : 400 ms P-R-T Axes : 055 -04 054 degrees QTc Int : 452 ms NORMAL SINUS RHYTHM NORMAL ECG WHEN COMPARED WITH ECG OF 06-MAR-2018 02:00, NO SIGNIFICANT CHANGE WAS FOUND Confirmed by SABA MEDINA MD ([id number]) on 03/06/2018 9:47:59 AM Referred By: Confirmed By:SABA MEDINA MD
--- NOTE | 2018-03-06 09:48 | EKG ---
Test Reason : Blood Pressure : / mmHG Vent. Rate : 113 BPM Atrial Rate : 113 BPM P-R Int : 194 ms QRS Dur : 092 ms QT Int : 310 ms P-R-T Axes : 047 022 032 degrees QTc Int : 425 ms SINUS TACHYCARDIA ANTERIOR INFARCT , AGE UNDETERMINED ABNORMAL ECG NO PREVIOUS ECGS AVAILABLE Confirmed by SAAB MEDINA MD ([id number]) on 03/06/2018 9:48:20 AM Referred By: Confirmed By:SABA MEDINA MD
[2018-03-06] MEDS ORDERED: THIAMINE HCL 200 MG/2 ML VIAL IVPB SCH (10:00)
--- NOTE | 2018-03-06 11:07 | ECHO ---
Name: JOANNA GUTIERREZ Exam:Adult Echocardiogram Study Date: 03/06/2018 09:40 AM Age: 47 yrs Reason For Study: EVAL EF Height: 66 in Weight: 170 lb BSA: 1.9 m2 MMode/2D Measurements & Calculations IVSd: 0.88 cm Ao root diam: 3.4 cm LVIDd: 5.6 cm LA dimension: 3.6 cm LVIDs: 3.2 cm LVPWd: 0.79 cm EDV(Teich): 156.5 ml LAV (MOD-bp): 66.9 ml ESV(Teich): 41.1 ml Doppler Measurements & Calculations MV E max antonio: 63.1 cm/sec TR max antonio: 221.3 cm/sec MV A max antonio: 81.0 cm/sec TR max P.7 mmHg MV E/A: 0.78 MV dec time: 0.12 sec Med Peak E' Antonio: 6.4 cm/sec PI Vmax: 123.5 cm/sec Med E/e': 9.8 Lat Peak E' Antonio: 10.6 cm/sec Lat E/e': 6.0 Procedure A complete two-dimensional transthoracic echocardiogram was performed (2D, M-mode, Doppler and color flow Doppler). Left Ventricle The left ventricle is normal in size. Left ventricular systolic function is normal. Ejection Fraction = 65- 70%. TDI reveals mildly impaired relaxation with normal filling pressure (E/E' 10). No regional wall motion abnormalities noted. Right Ventricle The right ventricle is normal size. The right ventricular systolic function is normal. Atria The left atrial size is normal. Right atrial size is normal. Mitral Valve There is mild mitral annular calcification. There is mild mitral regurgitation. Tricuspid Valve The tricuspid valve is normal in structure and function. There is mild tricuspid regurgitation. Pulmo nary artery systolic pressure is at least 25 mmHg assuming RA pressure of 3 mmHg. Aortic Valve The aortic valve is normal in structure and function. No aortic regurgitation is present. Pulmonic Valve The pulmonic valve is not well visualized. Great Vessels The aortic root is normal size. Pericardium/Pleura There is no pericardial effusion. Interpretation Summary The left ventricle is normal in size. Left ventricular systolic function is normal. No regional wall motion abnormalities noted. Ejection Fraction = 65-70%. TDI reveals mildly impaired relaxation with normal filling pressure (E/E' 10) The right ventricular systolic function is normal. The left atrial size is normal. Right atrial size is normal. There is mild mitral annular calcification. There is mild mitral regurgitation. There is mild tricuspid regurgitation. Pulmonary artery systolic pressure is at least 25 mmHg assuming RA pressure of 3 mmHg There is no pericardial effusion. Previous study is not available for comparison Ramiro Cowan MD 03/06/2018 11:06 AM
--- NOTE | 2018-03-06 13:54 | PN ---
Physical Exam: SUBJECTIVE: Patient seen and examined at bed side this morning. Complaining of mild suprapubic pain, non radiating, not associated with any other symptoms. Denies chest pain, sob, cough, palpitation, nausea or vomiting. Quintero in place. Tele monitor reviewed, no active issues. OBJECTIVE: Vital Signs Period Temp Pulse Resp BP Sys/Orr Pulse Ox Last 24 Hr 98.6 F-99.3 F 80-85 18-18 120-128/83-85 96-96 GENERAL: Middle aged male, sitting in bed, awake, alert, oriented x 3, in no acute distress, quintero in place. HEAD: Normal with no signs of trauma. EYES: EOM intact, no nystagmus, no pallor or icterus. ENT: Ears normal, moist mucous membranes. NECK: Supple, no JVD. LUNGS: Breath sounds equal, clear to auscultation bilaterally, no wheezes, no crackles, no accessory muscle use. HEART: Tachycardic, Regular rate and rhythm, S1, S2 without murmur. ABDOMEN: Soft, tenderness in the suprapubic area, nondistended, BS +, no guarding, no rebound, no hepatosplenomegaly, no masses. RECTAL EXAM: no external hemorrhoids, no nodules, stool sent for occult blood. EXTREMITIES: 2+ pulses, warm, well-perfused, no edema. NEUROLOGICAL: No facial droop, power 5/5 in all extremities, sensation intact, Cranial nerves II through XII grossly intact. Normal speech, gait not observed, fine tremors in the extremities. PSYCH: Normal mood, normal affect. SKIN: Warm, dry, normal turgor, no rashes or lesions noted Laboratory Results - last 24 hr 03/06/18 03/06/18 03/06/18 02:44 02:44 02:44 WBC 7.8 RBC 4.72 Hgb 13.9 Hct 39.2 MCV 82.9 MCH 29.3 MCHC 35.4 RDW 14.6 Plt Count 184 MPV 7.4 L Absolute Neuts (auto) 5.5 Neutrophils % 69.8 Lymphocytes % 21.2 D Monocytes % 7.9 Eosinophils % 0.2 Basophils % 0.9 Nucleated RBC % 0 ESR PT with INR INR PTT (Actin FS) Sodium 136 Potassium 3.4 L Chloride 99 Carbon Dioxide 24 Anion Gap 13 BUN 18 Creatinine 0.8 Creat Clearance w eGFR > 60 POC Glucometer Random Glucose 142 H Hemoglobin A1c % Calcium 6.6 L* Phosphorus Magnesium Total Bilirubin 1.1 H AST 311 H ALT 321 H Alkaline Phosphatase 225 H Creatine Kinase 381 H Creatine Kinase Index 1.3 CK-MB (CK-2) 5.3 H Troponin I 0.09 H C-Reactive Protein Total Protein 7.0 Albumin 3.0 L Triglycerides Cholesterol Total LDL Cholesterol HDL Cholesterol Lipase 556 H TSH Urine Color Urine Appearance Urine pH Ur Specific [place] Urine Protein Urine Glucose (UA) Urine Ketones Urine Blood Urine Nitrite Urine Bilirubin Urine Urobilinogen Ur Leukocyte Esterase Urine WBC (Auto) Urine RBC (Auto) Urine Bacteria Urine Mucus Stool Occult Blood Alcohol, Quantitative 213.8 H HIV 1&2 Antibody Screen HIV P24 Antigen 03/06/18 03/06/18 03/06/18 02:55 07:00 07:05 WBC 5.4 RBC 4.23 Hgb 12.4 Hct 35.2 L MCV 83.3 MCH 29.3 MCHC 35.1 RDW 14.5 Plt Count 137 D MPV 7.5 Absolute Neuts (auto) 4.0 Neutrophils % 72.8 Lymphocytes % 20.7 Monocytes % 5.5 Eosinophils % 0.3 Basophils % 0.7 Nucleated RBC % 0 ESR PT with INR INR PTT (Actin FS) Sodium Potassium Chloride Carbon Dioxide Anion Gap BUN Creatinine Creat Clearance w eGFR POC Glucometer Random Glucose Hemoglobin A1c % Calcium Phosphorus Magnesium Total Bilirubin AST ALT Alkaline Phosphatase Creatine Kinase Creatine Kinase Index CK-MB (CK-2) Troponin I 0.11 H C-Reactive Protein Total Protein Albumin Triglycerides Cholesterol Total LDL Cholesterol HDL Cholesterol Lipase TSH Urine Color Michelle Urine Appearance Clear Urine pH 6.0 Ur Specific [place] 1.025 Urine Protein 2+ H Urine Glucose (UA) Negative Urine Ketones Trace H Urine Blood 3+ H Urine Nitrite Negative Urine Bilirubin Negative Urine Urobilinogen 4.0 e.u/dl Ur Leukocyte Esterase 2+ H Urine WBC (Auto) 31 Urine RBC (Auto) 69 Urine Bacteria Rare Urine Mucus Rare Stool Occult Blood Alcohol, Quantitative HIV 1&2 Antibody Screen HIV P24 Antigen 03/06/18 03/06/18 03/06/18 07:05 07:05 07:05 WBC RBC Hgb Hct MCV MCH MCHC RDW Plt Count MPV Absolute Neuts (auto) Neutrophils % Lymphocytes % Monocytes % Eosinophils % Basophils % Nucleated RBC % ESR 2 PT with INR 13.60 H INR 1.15 H PTT (Actin FS) 31.6 Sodium 139 Potassium 3.5 Chloride 102 Carbon Dioxide 26 Anion Gap 10 BUN 15 Creatinine 0.6 Creat Clearance w eGFR > 60 POC Glucometer Random Glucose 99 Hemoglobin A1c % Calcium 7.0 L Phosphorus 2.5 Magnesium 1.7 L Total Bilirubin 1.0 AST 260 H ALT 282 H Alkaline Phosphatase 205 H Creatine Kinase Creatine Kinase Index CK-MB (CK-2) Troponin I C-Reactive Protein Total Protein 6.0 L Albumin 2.6 L Triglycerides Cholesterol Total LDL Cholesterol HDL Cholesterol Lipase TSH Urine Color Urine Appearance Urine pH Ur Specific [place] Urine Protein Urine Glucose (UA) Urine Ketones Urine Blood Urine Nitrite Urine Bilirubin Urine Urobilinogen Ur Leukocyte Esterase Urine WBC (Auto) Urine RBC (Auto) Urine Bacteria Urine Mucus Stool Occult Blood Alcohol, Quantitative HIV 1&2 Antibody Screen HIV P24 Antigen 03/06/18 03/06/18 03/06/18 07:05 07:05 07:05 WBC RBC Hgb Hct MCV MCH MCHC RDW Plt Count MPV Absolute Neuts (auto) Neutrophils % Lymphocytes % Monocytes % Eosinophils % Basophils % Nucleated RBC % ESR PT with INR INR PTT (Actin FS) Sodium Potassium Chloride Carbon Dioxide Anion Gap BUN Creatinine Creat Clearance w eGFR POC Glucometer Random Glucose Hemoglobin A1c % 6.4 H Calcium Phosphorus Magnesium Total Bilirubin AST ALT Alkaline Phosphatase Creatine Kinase Creatine Kinase Index CK-MB (CK-2) Troponin I C-Reactive Protein < 0.3 Total Protein Albumin Triglycerides 1149 H Cholesterol 189 Total LDL Cholesterol 58 HDL Cholesterol 14 L Lipase TSH 1.53 Urine Color Urine Appearance Urine pH Ur Specific [place] Urine Protein Urine Glucose (UA) Urine Ketones Urine Blood Urine Nitrite Urine Bilirubin Urine Urobilinogen Ur Leukocyte Esterase Urine WBC (Auto) Urine RBC (Auto) Urine Bacteria Urine Mucus Stool Occult Blood Alcohol, Quantitative HIV 1&2 Antibody Screen Negative HIV P24 Antigen Negative 03/06/18 03/06/18 10:30 12:23 WBC RBC Hgb Hct MCV MCH MCHC RDW Plt Count MPV Absolute Neuts (auto) Neutrophils % Lymphocytes % Monocytes % Eosinophils % Basophils % Nucleated RBC % ESR PT with INR INR PTT (Actin FS) Sodium Potassium Chloride Carbon Dioxide Anion Gap BUN Creatinine Creat Clearance w eGFR POC Glucometer 97 Random Glucose Hemoglobin A1c % Calcium Phosphorus Magnesium Total Bilirubin AST ALT Alkaline Phosphatase Creatine Kinase Creatine Kinase Index CK-MB (CK-2) Troponin I C-Reactive Protein Total Protein Albumin Triglycerides Cholesterol Total LDL Cholesterol HDL Cholesterol Lipase TSH Urine Color Urine Appearance Urine pH Ur Specific [place] Urine Protein Urine Glucose (UA) Urine Ketones Urine Blood Urine Nitrite Urine Bilirubin Urine Urobilinogen Ur Leukocyte Esterase Urine WBC (Auto) Urine RBC (Auto) Urine Bacteria Urine Mucus Stool Occult Blood Negative Alcohol, Quantitative HIV 1&2 Antibody Screen HIV P24 Antigen Active Medications Generic Name Dose Route Start Last Admin Trade Name Shandra PRN Reason Stop Dose Admin Ceftriaxone Sodium 1 gm/ 100 mls @ 200 mls/hr 03/06/18 10:00 Dextrose IVPB DAILY [facility] Protocol Lactated Ringer's 1,000 ml in 1,000 mls @ 75 mls/hr 03/06/18 06:45 03/06/18 06:52 Lactated Ringers Solution IV 75 mls/hr ASDIR CLEMENTINA Administration Folic Acid 1 mg/ Thiamine HCl 1,000 mls @ 100 mls/hr 03/06/18 09:12 03/06/18 11:03 100 mg/ Multivitamins/Minerals IVPB 03/06/18 19:10 100 mls/hr 10 ml/ Sodium Chloride ONCE ONE Administration Lorazepam 2 mg 03/06/18 09:35 Ativan Injection - IVPUSH Q4H PRN ANXIETY Pantoprazole Sodium 40 mg 03/06/18 10:00 Protonix Iv IVPUSH DAILY [facility] Tamsulosin HCl 0.4 mg 03/07/18 08:30 Flomax - PO DAILY@0830 [facility] Thiamine HCl 250 mg 03/06/18 14:00 Vitamin B1 Injection - IVPB 03/09/18 13:59 TID [facility] ASSESSMENT/PLAN: Patient is a 47 year old male with significant PMHx of Alcohol abuse (binge drinking for 3 weeks) and urinary retention, came in to the ED complaining of chest pain and headache was found to have meningioma on CT. # Alcohol abuse Binge drinking for 3 weeks (10 bottles of beer/day with shots of tequilla, had one bottle of vodka x 2 days ago) CIWA score 2 Added IV Ativan 2mg Q4H PRN 1 Banana bag given Thiamine 250mg IV TID x 3 days Librium protocol started Detox consult (patient wants to go rehab for alcohol detox) # Newly diagnosed Meningioma Head CT showed 2.3 x 1.9 x1.7 cm parafacine mass possibly a meningioma MRI of brain with and without contrast ordered Neurology exam benign, no focal neurological deficits Neurology consult requested # Elevated troponins likely secondary to demand ischemia O.09---> 0.11--->Pending EKG: Normal sinus. Qtc 452 ECHO 03/06/18: Left ventricle is normal. No regional wall abnormalities, EF 65-70 %. Right vent systolic function normal. Pul systolic pressure 25 mmHg # UTI Patient has urinary symptoms. However, urine cultures are negative Will continue IV Ceftriaxone. Sexually active, will r/o STD's. BUrning urination, but no urethral discharge. # Diarrhoea Several episodes of diarrhoea with blood. Stool for occult blood sent today. # Hypertriglyceridemia Due to Elevated lipase, will hold off the meds until discharge # Transaminitis AST/ALT/ALP: 260/282/205 trending down. Likely due to alcohol intake. Hepatitis panel pending [facility] abdomen showed Hepatic steatosis and fatty liver # FEN IV Banana bag now then encourage PO intake Electrolytes: HypoMg, repleted Cholesterol controlled diet # Prophylaxis For DVT: On scd's, For GI: IV Protonix 40 mg Daily # Code Status: Full Code Illness, Investigation and Plan of care explained to the patient. He verbalized understanding. Case discussed with Dr. Andrew. Problem List - Problems (1) Alcohol withdrawal Code(s): F10.239 - ALCOHOL DEPENDENCE WITH WITHDRAWAL, UNSPECIFIED (2) Brain mass Code(s): G93.9 - DISORDER OF BRAIN, UNSPECIFIED (3) Chest pain Code(s): R07.9 - CHEST PAIN, UNSPECIFIED (4) Hypertriglyceridemia Code(s): E78.1 - PURE HYPERGLYCERIDEMIA (5) Elevated lipase Code(s): R74.8 - ABNORMAL LEVELS OF OTHER SERUM ENZYMES (6) EtOH dependence Code(s): F10.20 - ALCOHOL DEPENDENCE, UNCOMPLICATED (7) Transaminitis Code(s): R74.0 - NONSPEC ELEV OF LEVELS OF TRANSAMNS & LACTIC ACID DEHYDRGNSE (8) Urinary retention Code(s): R33.9 - RETENTION OF URINE, UNSPECIFIED Visit type - Emergency Visit Emergency Visit: Yes ED Registration Date: 03/06/18 Care time: The patient presented to the Emergency Department on the above date and was hospitalized for further evaluation of their emergent condition. - New Patient This patient is new to me today: Yes Date on this admission: 03/06/18 - Critical Care Critical Care patient: No - Discharge Referral Referred to [facility] Med P.C.: No
[2018-03-06] MEDS ORDERED: MAGNESIUM SULF 50% (8.12 MEQ/2 ML-1 GM VIAL) ONE (14:11)
[2018-03-06] MEDS: THIAMINE HCL 200 MG/2 ML VIAL IVPB SCH ×2 (14:23→21:27)
--- NOTE | 2018-03-06 14:28 | PN ---
Teaching Attending Note Name of Resident: Annemarie Karimi ATTENDING PHYSICIAN STATEMENT I saw and evaluated the patient. I reviewed the resident's note and discussed the case with the resident. I agree with the resident's findings and plan as documented. SUBJECTIVE: Mr Torres still has a headache but otherwise says he is feeling well today. No cp, sob, n/v. OBJECTIVE: Gen: nad Pulm: ctab w/o w/r/r CV: rrr w/o m/r/g Abd: +bs, s/nt/nd Ext: no c/c/e ASSESSMENT AND PLAN: -continue telemetry for alcohol withdrawal -check PSA for urinary retention -begin flomax -evaluate if can remove quintero tomorrow -begin librium protocol -begin thiamine replacement -plan to start lipid lower medication on discharge, will hold now since with elevated lipase -consult addiction medicine -obtain MRI since incidentally found to have brain mass most c/w meningioma -neurosurgery consulted, has not seen yet but said no steroids or anti-seizure medications -consult neurology Problem List - Problems (1) Hypertriglyceridemia Code(s): E78.1 - PURE HYPERGLYCERIDEMIA (2) Alcohol withdrawal Code(s): F10.239 - ALCOHOL DEPENDENCE WITH WITHDRAWAL, UNSPECIFIED (3) Brain mass Code(s): G93.9 - DISORDER OF BRAIN, UNSPECIFIED (4) Chest pain Code(s): R07.9 - CHEST PAIN, UNSPECIFIED (5) Elevated lipase Code(s): R74.8 - ABNORMAL LEVELS OF OTHER SERUM ENZYMES (6) EtOH dependence Code(s): F10.20 - ALCOHOL DEPENDENCE, UNCOMPLICATED (7) Transaminitis Code(s): R74.0 - NONSPEC ELEV OF LEVELS OF TRANSAMNS & LACTIC ACID DEHYDRGNSE (8) Urinary retention Code(s): R33.9 - RETENTION OF URINE, UNSPECIFIED
--- NOTE | 2018-03-06 15:41 | EKG ---
Test Reason : Blood Pressure : / mmHG Vent. Rate : 078 BPM Atrial Rate : 078 BPM P-R Int : 200 ms QRS Dur : 098 ms QT Int : 412 ms P-R-T Axes : 053 -04 059 degrees QTc Int : 469 ms NORMAL SINUS RHYTHM NONSPECIFIC T WAVE ABNORMALITY PROLONGED QT ABNORMAL ECG WHEN COMPARED WITH ECG OF 06-MAR-2018 06:42, NO SIGNIFICANT CHANGE WAS FOUND Confirmed by CAROL CARRERA, SABA ([id number]) on 03/06/2018 3:41:27 PM Referred By: ADRI MCALLISTER Confirmed By:SABA MEDINA MD
[2018-03-06] MEDS ORDERED: DEXTROSE 5%-WATER 100 ML IVPB ONE (15:42)
[2018-03-06] MEDS ORDERED: cefTRIAXone SODIUM 1 GM VIAL ONE (15:42)
[2018-03-06] MEDS: PANTOPRAZOLE SODIUM 40 MG VIAL IVPUSH SCH (16:05)
[2018-03-06] MEDS: CEFTRIAXONE 1 GM in DEXTROSE 5%-WATER 100 ML IVPB SCH (16:05)
[2018-03-06] MEDS ORDERED: chlordiazePOXIDE HCL 25 MG CAPSULE PO PRN (16:31)
[2018-03-06] MEDS: chlordiazePOXIDE HCL 25 MG CAPSULE PO SCH ×2 (18:10→22:25)
[2018-03-06 18:12] VITALS: BMI 26.1
[2018-03-06 22:08] LABS: COCAINE, UR NEGATIVE ng/ml (CUTOFF=300); METHADONE, UR NEGATIVE ng/ml (CUTOFF=300); OPIATES, URI NEGATIVE ng/ml (CUTOFF=300); PHENCYCLIDINE,URINE NEGATIVE ng/ml (CUTOFF=25); URINE AMPHETAMINES NEGATIVE ng/ml (CUTOFF=500); URINE BARBITURATES NEGATIVE ng/ml (CUTOFF=200); URINE BENZODIAZEPINES NEGATIVE ng/ml (CUTOFF=200)
[2018-03-07 03:16] LABS: HEP.C VIRUS AB <0.1 s/co ratio (0.0-0.9)
[2018-03-07] MEDS: chlordiazePOXIDE HCL 25 MG CAPSULE PO SCH ×3 (05:31→17:51)
[2018-03-07] MEDS: THIAMINE HCL 200 MG/2 ML VIAL IVPB SCH ×2 (05:32→14:33)
[2018-03-07 07:00] LABS: HEMATOCRIT 33.8 % (35.4-49); HEMOGLOBIN 12.2 GM/dL (11.7-16.9); MCH 29.9 pg (25.7-33.7); MCHC 36.1 g/dl (32.0-35.9); MEAN CELL VOLUME 82.7 fl (80-96); PLATELET COUNT 122 K/MM3 (134-434); RBC 4.09 M/mm3 (4.00-5.60); RDW 14.2 % (11.9-15.9); WHITE BLOOD COUNT 3.6 K/mm3 (4.0-10.0)
[2018-03-07 07:35] LABS: INR 1.03 (0.83-1.09); PROTHROMBIN TIME (PATIENT) 12.1 SEC (9.7-13.0)
[2018-03-07 07:47] LABS: ALBUMIN 2.7 g/dl (3.4-5.0); ALK PHOS 218 U/L (45-117); ANION GAP 8 MMOL/L (8-16); BILIRUBIN,TOTAL 2.5 mg/dL (0.2-1); BLOOD UREA NITROGEN 4 mg/dL (7-18); CHLORIDE 95 mmol/L (98-107); CO2 30 mmol/L (21-32); CREATININE 0.6 mg/dL (0.55-1.3); GLUCOSE,RANDOM 105 mg/dL (74-106); MAGNESIUM 1.8 mg/dL (1.8-2.4); PHOSPHOROUS 2.2 mg/dL (2.5-4.9); SGOT/AST 284 U/L (15-37); SGPT/ALT 257 U/L (13-61); SODIUM 133 mmol/L (136-145); TOT PROT 6.3 g/dl (6.4-8.2)
[2018-03-07 07:49] LABS: CALCIUM 6.8 mg/dL (8.5-10.1); POTASSIUM 2.9 mmol/L (3.5-5.1)
--- NOTE | 2018-03-07 09:14 | CONSULT ---
Consult - text type - Consultation Consultation Note: Perry History of Present Illness 47 yo M with a hx of alcoholism (endorses hx of withdrawals) and urinary retention presented to the emergency department with headache and chest pain. Per the patient, he was seen at [facility] for alcohol intoxication after having his last drink at 5pm the day prior. He was given "a pill that made me feel better" but denied he was worked up for the chest pain he was having. His chest pain ceased and then came back with concurrent severe headaches. He denied falling, however his female pacu rn at bedside reportedly stated he could have fallen. CT head was completed and demonstrated left parafalx meningioma approximately 2 cm in size with some mild parameningeal edema per notes. I reviewed this with the patient at bedside this morning will senior hardware engineer. Neurosurgery was reportedly consulted, MRI brain ordered. Patient is well-appearing this morning and was asking appropriate questions regarding meningioma, informed him that it is local and does not spread throughout e body and is not malignant metastatic. Complicating the case is that the patient does not have insurance. Past History - Past Medical History COPD: No - Suicide/Smoking/Psychosocial Hx Smoking History: Never smoked Have you smoked in the past 12 months: No Information on smoking cessation initiated: No Hx Alcohol Use: No Drug/Substance Use Hx: No - Past Medical History Allergies/Adverse Reactions: Allergies Allergy/AdvReac Type Severity Reaction Status Date / Time No Known Allergies Allergy Verified 03/02/18 02:24 Home Medications: Ambulatory Orders NK [No Known Home Medication] 03/02/18 Review of Systems - Review of Systems Able to Perform ROS?: Yes Is the patient limited Romanian proficient: No Constitutional: Yes: Fever, Weakness. No: Chills, Diaphoresis HEENTM: No: Recent change in vision, Ear Pain, Nose Pain, Throat Pain, Mouth Pain Respiratory: No: Cough, Shortness of Breath Cardiac (ROS): Yes: Chest Pain. No: Lightheadedness, Palpitations, Syncope ABD/GI: Yes: Nausea. No: Constipated, Diarrhea, Rectal Bleeding, Vomiting, Tarry Stools : No: Burning, Dysuria, Hematuria Musculoskeletal: No: Back Pain Integumentary: No: Rash Neurological: Yes: Headache. No: Tremors, Ataxia Psychiatric: No: Stressors *Physical Exam Vital Signs Period Temp Pulse Resp BP Sys/Orr Pulse Ox Last 24 Hr 98 F-98.5 F 80-103 18-20 133-158/80-91 - Physical Exam General Appearance: Yes: Nourished, Appropriately Dressed, Disheveled, Alcohol on Breath. No: Apparent Distress HEENT: positive: EOMI, [place], Normal Voice, Symmetrical, Hearing Grossly Normal. negative: Pale Conjunctivae, Scleral Icterus (R), Scleral Icterus (L), Muffled /Hoarse voice, Excessive drooling Neck: positive: Trachea midline. negative: Tender Respiratory/Chest: positive: Lungs Clear, Normal Breath Sounds. negative: Chest Tender, Respiratory Distress, Accessory Muscle Use Cardiovascular: positive: Regular Rhythm, Regular Rate, S1, S2. negative: Systolic Murmur Gastrointestinal/Abdominal: positive: Normal Bowel Sounds, Tender (epigastric, periumbilical, RUQ), Flat, Soft. negative: Distended Male Genitalia: positive: other (catheter in place. urine is orange ) Lymphatic: negative: Adenopathy Musculoskeletal: positive: Normal Inspection. negative: CVA Tenderness Extremity: positive: Normal Capillary Refill, Normal Inspection, Normal Range of Motion. negative: Tender Integumentary: positive: Normal Color, Dry, Warm Neurologic: positive: verification engineer II-XII NML intact, Alert, strength symmetric bilaterally, sensory intact bilaterally, finger to nose normal Laboratory Results 03/06/18 03/06/18 03/06/18 02:55 02:44 02:44 Sodium 136 Potassium 3.4 L Chloride 99 Carbon Dioxide 24 Anion Gap 13 BUN 18 Creatinine 0.8 Creat Clearance w eGFR > 60 Random Glucose 142 H Calcium 6.6 L* Total Bilirubin 1.1 H AST 311 H ALT 321 H Alkaline Phosphatase 225 H Creatine Kinase 381 H Creatine Kinase Index 1.3 CK-MB (CK-2) 5.3 H Troponin I 0.09 H Total Protein 7.0 Albumin 3.0 L Lipase 556 H Urine Color Michelle Urine Appearance Clear Urine pH 6.0 Ur Specific [place] 1.025 Urine Protein 2+ H Urine Glucose (UA) Negative Urine Ketones Trace H Urine Blood 3+ H Urine Nitrite Negative Urine Bilirubin Negative Urine Urobilinogen 4.0 e.u/dl Ur Leukocyte Esterase 2+ H Urine WBC (Auto) 31 Urine RBC (Auto) 69 Urine Bacteria Rare Urine Mucus Rare Alcohol, Quantitative 213.8 H 03/06/18 02:44 RBC 4.72 MCV 82.9 MCHC 35.4 RDW 14.6 MPV 7.4 L Neutrophils % 69.8 Lymphocytes % 21.2 D Monocytes % 7.9 Eosinophils % 0.2 Basophils % 0.9 Medical Decision Making 47 yo M with a hx of alcoholism (endorses hx of withdrawals) and urinary retention presented to the emergency department with headache and chest pain. Per the patient, he was seen at [facility] for alcohol intoxication after having his last drink at 5pm the day prior. He was given "a pill that made me feel better" but denied he was worked up for the chest pain he was having. His chest pain ceased and then came back with concurrent severe headaches. He denied falling, however his female pacu rn at bedside reportedly stated he could have fallen. CT head was completed and demonstrated left parafalx meningioma approximately 2 cm in size with some mild parameningeal edema per notes. Agree with MRI brain Agree with neurosurgery consult, unclear if intervention would be pursued as inpatient or be defer to outpatient Does not require steroids at this time NSAIDs for tension headache Monitor blood pressure, maintain normotensive range Continue alcohol detox Monitor seizure activity Maintain hydration
[2018-03-07] MEDS ORDERED: DEXTROSE 5%-WATER 100 ML IVPB ONE (09:29)
[2018-03-07] MEDS ORDERED: cefTRIAXone SODIUM 1 GM VIAL ONE (09:29)
[2018-03-07] MEDS ORDERED: POTASSIUM CHLORIDE TABS 20 MEQ TABLET.ER (FP) PO ONE (09:30)
[2018-03-07] MEDS: PANTOPRAZOLE SODIUM 40 MG VIAL IVPUSH SCH (09:36)
[2018-03-07] MEDS: CEFTRIAXONE 1 GM in DEXTROSE 5%-WATER 100 ML IVPB SCH (09:36)
[2018-03-07] MEDS: TAMSULOSIN HCL 0.4 MG CAP PO SCH (09:37)
[2018-03-07] MEDS: KCL 10 MEQ IVPB 10 MEQ/100 ML INFUS.BAG IVPB SCH ×2 (09:37→11:29)
[2018-03-07] MEDS: LACTATED RINGERS SOLUTION 1,000 ML/1,000 ML INFUS.BAG IV SCH (09:45)
--- NOTE | 2018-03-07 10:43 | PN ---
Physical Exam: SUBJECTIVE: Patient seen and examined at bed side this morning. Complaining of left sided chest pain, 7/10 in intensity, non radiating, pressure type, not associated with any symptoms. Denies palpitation, sob, cough, abdominal pain, nausea or vomiting. Supra pubic pain still persists. No acute overnight events. No events in tele. OBJECTIVE: Vital Signs Period Temp Pulse Resp BP Sys/Orr Pulse Ox Last 24 Hr 98 F-98.5 F 80-103 18-20 133-158/80-91 GENERAL: Middle aged male, sitting in bed, awake, alert, oriented x 3, in no acute distress, quintero in place. HEAD: Normal with no signs of trauma. EYES: EOM intact, no nystagmus, no pallor or icterus. ENT: Ears normal, moist mucous membranes. NECK: Supple, no JVD. CHEST: pain on palpation LUNGS: Breath sounds equal, clear to auscultation bilaterally, no wheezes, no crackles, no accessory muscle use. HEART: Tachycardic, Regular rate and rhythm, S1, S2 without murmur. ABDOMEN: Soft, tenderness in the suprapubic area, nondistended, BS +, no guarding, no rebound, no hepatosplenomegaly, no masses. EXTREMITIES: 2+ pulses, warm, well-perfused, no edema. NEUROLOGICAL: No facial droop, power 5/5 in all extremities, sensation intact, Cranial nerves II through XII grossly intact. Normal speech, gait not observed, fine tremors in the extremities. PSYCH: Normal mood, normal affect. SKIN: Warm, dry, normal turgor, no rashes or lesions noted Laboratory Results - last 24 hr 03/06/18 03/06/18 03/06/18 07:05 10:30 12:23 WBC RBC Hgb Hct MCV MCH MCHC RDW Plt Count MPV PT with INR INR Sodium Potassium Chloride Carbon Dioxide Anion Gap BUN Creatinine Creat Clearance w eGFR POC Glucometer 97 Random Glucose Calcium Phosphorus Magnesium Total Bilirubin AST ALT Alkaline Phosphatase Troponin I Total Protein Albumin Stool Occult Blood Negative Opiates Screen Methadone Screen Barbiturate Screen Phencyclidine Screen Ur Amphetamines Screen MDMA (Ecstasy) Screen Benzodiazepines Screen Cocaine Screen U Marijuana (THC) Screen Hepatitis A IgM Ab Negative Hep Bs Antigen Negative Hep B Core IgM Ab Negative Hepatitis C Antibody <0.1 03/06/18 03/06/18 03/07/18 13:30 20:00 05:15 WBC 3.6 L RBC 4.09 Hgb 12.2 Hct 33.8 L MCV 82.7 MCH 29.9 MCHC 36.1 H RDW 14.2 Plt Count 122 L MPV 8.0 PT with INR INR Sodium Potassium Chloride Carbon Dioxide Anion Gap BUN Creatinine Creat Clearance w eGFR POC Glucometer Random Glucose Calcium Phosphorus Magnesium Total Bilirubin AST ALT Alkaline Phosphatase Troponin I 0.09 H Total Protein Albumin Stool Occult Blood Opiates Screen Negative Methadone Screen Negative Barbiturate Screen Negative Phencyclidine Screen Negative Ur Amphetamines Screen Negative MDMA (Ecstasy) Screen Negative Benzodiazepines Screen Negative Cocaine Screen Negative U Marijuana (THC) Screen Negative Hepatitis A IgM Ab Hep Bs Antigen Hep B Core IgM Ab Hepatitis C Antibody 03/07/18 03/07/18 05:15 05:15 WBC RBC Hgb Hct MCV MCH MCHC RDW Plt Count MPV PT with INR 12.10 INR 1.03 Sodium 133 L Potassium 2.9 L* Chloride 95 L Carbon Dioxide 30 Anion Gap 8 BUN 4 L Creatinine 0.6 Creat Clearance w eGFR > 60 POC Glucometer Random Glucose 105 Calcium 6.8 L* Phosphorus 2.2 L Magnesium 1.8 Total Bilirubin 2.5 H AST 284 H ALT 257 H Alkaline Phosphatase 218 H Troponin I Total Protein 6.3 L Albumin 2.7 L Stool Occult Blood Opiates Screen Methadone Screen Barbiturate Screen Phencyclidine Screen Ur Amphetamines Screen MDMA (Ecstasy) Screen Benzodiazepines Screen Cocaine Screen U Marijuana (THC) Screen Hepatitis A IgM Ab Hep Bs Antigen Hep B Core IgM Ab Hepatitis C Antibody Active Medications Generic Name Dose Route Start Last Admin Trade Name Freq PRN Reason Stop Dose Admin Chlordiazepoxide HCl 50 mg 03/06/18 17:00 03/07/18 05:31 Librium - PO 03/07/18 11:01 50 mg [id number] CLEMENTINA Administration Chlordiazepoxide HCl 25 mg 03/07/18 17:00 Librium - PO 03/08/18 11:01 [id number] CLEMENTINA Chlordiazepoxide HCl 15 mg 03/08/18 17:00 Librium - PO 03/09/18 11:01 [id number] CLEMENTINA Chlordiazepoxide HCl 25 mg 03/06/18 16:31 Librium - PO 03/09/18 16:30 Q4H PRN WITHDRAWAL(CONT SUBST) Chlordiazepoxide HCl 10 mg 03/09/18 17:00 Librium - PO 03/10/18 11:01 [id number] CLEMENTINA Ceftriaxone Sodium 1 gm/ 100 mls @ 200 mls/hr 03/06/18 10:00 03/07/18 09:36 Dextrose IVPB 200 mls/hr DAILY CLEMENTINA Administration Protocol Lactated Ringer's 1,000 ml in 1,000 mls @ 75 mls/hr 03/06/18 06:45 03/07/18 09:45 Lactated Ringers Solution IV 75 mls/hr ASDIR CLEMENTINA Administration Potassium Chloride 10 meq in 100 mls @ 100 mls/hr 03/07/18 09:30 03/07/18 09: 37 Potassium Chloride 10 Meq Premix Ivpb - IVPB 03/07/18 11:29 100 mls/hr Q60M CLEMENTINA Administration Potassium Phosphate 40 mm/ 513.3333 mls @ 62.5 mls/hr 03/07/18 11:30 Sodium Chloride IVPB 03/07/18 19:42 ONCE ONE Lorazepam 2 mg 03/06/18 09:35 03/06/18 14:23 Ativan Injection - IVPUSH 2 mg Q4H PRN Administration ANXIETY Pantoprazole Sodium 40 mg 03/06/18 10:00 03/07/18 09:36 Protonix Iv IVPUSH 40 mg DAILY CLEMENTINA Administration Tamsulosin HCl 0.4 mg 03/07/18 08:30 03/07/18 09:37 Flomax - PO 0.4 mg DAILY@0830 CLEMENTINA Administration Thiamine HCl 250 mg 03/06/18 14:00 03/07/18 05:32 Vitamin B1 Injection - IVPB 03/09/18 13:59 250 mg TID CLEMENTINA Administration ASSESSMENT/PLAN: Patient is a 47 year old male with significant PMHx of Alcohol abuse (binge drinking for 3 weeks) and urinary retention, came in to the ED complaining of chest pain and headache was found to have meningioma on CT. # Chest pain r/o ACS. Could be musculoskeletal (pain on palpation) O.09---> 0.11---> 0.09--> pending today EKG ordered stat. ECHO 03/06/18: Left ventricle is normal. No regional wall abnormalities, EF 65-70 %. Right vent systolic function normal. Pul systolic pressure 25 mmHg # Alcohol abuse On Libirum protocol. No signs of agitation or tremors. Continue Thiamine 250mg IV TID x 3 days Detox consult (patient wants to go rehab for alcohol detox) # Newly diagnosed Meningioma Head CT showed 2.3 x 1.9 x1.7 cm parafacine mass possibly a meningioma MRI of brain with and without contrast ordered. Neurology exam benign, no focal neurological deficits Appreciate Dr. Lal's consult. Dr. Mancini consult requested. # UTI Patient has urinary symptoms. However, urine cultures are negative Will continue IV Ceftriaxone. Will d/c quintero. Sexually active, will r/o STD's. Burning urination, but no urethral discharge. # Diarrhoea could be viral gastroenteritis. 3 episodes of diarrhoea today. Stool for occult blood negative. Continue IV LR # Hypertriglyceridemia Due to Elevated lipase, will hold off the meds until discharge # Transaminitis AST/ALT/ALP: 260/282/205 ---> 284/257/218 . Likely due to alcohol intake. Will repeat LFT's in AM it worsens, will get recommendations from GI. Hepatitis panel negative. HIV negative USG abdomen showed Hepatic steatosis and fatty liver # FEN IV LR @ 75 mls/hr Electrolytes: Hypokalemia 2.9, repleted with IV Potassium 10 mEq x2 bags and 40mg KDUR, will repeat BMP at 4pm. Hypophos 2.2. Repleted with IV Kphos Cholesterol controlled diet # Prophylaxis For DVT: Heparin 5000 IU sq TID For GI: IV Protonix 40 mg Daily # Code Status: Full Code Illness, Investigation and Plan of care explained to the patient. He verbalized understanding. Case to be discussed with Dr. Andrew. Problem List - Problems (1) Alcohol withdrawal Code(s): F10.239 - ALCOHOL DEPENDENCE WITH WITHDRAWAL, UNSPECIFIED (2) Brain mass Code(s): G93.9 - DISORDER OF BRAIN, UNSPECIFIED (3) Chest pain Code(s): R07.9 - CHEST PAIN, UNSPECIFIED (4) Hypertriglyceridemia Code(s): E78.1 - PURE HYPERGLYCERIDEMIA (5) Elevated lipase Code(s): R74.8 - ABNORMAL LEVELS OF OTHER SERUM ENZYMES (6) EtOH dependence Code(s): F10.20 - ALCOHOL DEPENDENCE, UNCOMPLICATED (7) Transaminitis Code(s): R74.0 - NONSPEC ELEV OF LEVELS OF TRANSAMNS & LACTIC ACID DEHYDRGNSE (8) Urinary retention Code(s): R33.9 - RETENTION OF URINE, UNSPECIFIED Visit type - Emergency Visit Emergency Visit: Yes ED Registration Date: 03/06/18 Care time: The patient presented to the Emergency Department on the above date and was hospitalized for further evaluation of their emergent condition. - New Patient This patient is new to me today: No - Critical Care Critical Care patient: No - Discharge Referral Referred to [facility] Med [facility] No
[2018-03-07] MEDS ORDERED: POTASSIUM PHOSPHATE 40 MM in SODIUM CHLORIDE 500 ML IVPB ONE (11:30)
--- NOTE | 2018-03-07 14:31 | EKG ---
Test Reason : Blood Pressure : / mmHG Vent. Rate : 108 BPM Atrial Rate : 108 BPM P-R Int : 186 ms QRS Dur : 092 ms QT Int : 344 ms P-R-T Axes : 038 013 019 degrees QTc Int : 460 ms SINUS TACHYCARDIA NONSPECIFIC T WAVE ABNORMALITY Inferior injury pattern suggests right ventricular involvement, recommend adding leads V3r and V4r to confirm ABNORMAL ECG WHEN COMPARED WITH ECG OF 06-MAR-2018 10:14, NONSPECIFIC T WAVE ABNORMALITY NOW EVIDENT IN INFERIOR LEADS Confirmed by MD CLAUDIA, DELTA ([id number]) on 03/07/2018 2:31:19 PM Referred By: WILLIE SIMON Confirmed By:DELTA TAYLOR MD
[2018-03-07] MEDS: HEPARIN NA (PORCINE) 5,000 UNITS/ML 1ML VIAL SQ SCH (14:33)
--- NOTE | 2018-03-07 14:40 | PN ---
Teaching Attending Note Name of Resident: Annemarie Karimi ATTENDING PHYSICIAN STATEMENT I saw and evaluated the patient. I reviewed the resident's note and discussed the case with the resident. I agree with the resident's findings and plan as documented. SUBJECTIVE: Mr Torres complains of headache and chest pain. No sob or n/v. OBJECTIVE: Gen: nad Pulm: ctab w/o w/r/r CV: rrr w/o m/r/g, reproducible chest wall pain Abd: +bs, s/nt/nd Ext: no c/c/e ASSESSMENT AND PLAN: -Dr Ventura from neurosurgery will see patient for meningioma -appreciate neurology assistance -monitor LFTs, may need GI consult if bilirubin worsens -if has AMS, check ammonia level -continue detox with librium -continue rocephin currently, if urine culture negative will d/c -remove quintero -continue flomax -replace potassium Problem List - Problems (1) Hypertriglyceridemia Code(s): E78.1 - PURE HYPERGLYCERIDEMIA (2) Alcohol withdrawal Code(s): F10.239 - ALCOHOL DEPENDENCE WITH WITHDRAWAL, UNSPECIFIED (3) Brain mass Code(s): G93.9 - DISORDER OF BRAIN, UNSPECIFIED (4) Chest pain Code(s): R07.9 - CHEST PAIN, UNSPECIFIED (5) Elevated lipase Code(s): R74.8 - ABNORMAL LEVELS OF OTHER SERUM ENZYMES (6) EtOH dependence Code(s): F10.20 - ALCOHOL DEPENDENCE, UNCOMPLICATED (7) Transaminitis Code(s): R74.0 - NONSPEC ELEV OF LEVELS OF TRANSAMNS & LACTIC ACID DEHYDRGNSE (8) Urinary retention Code(s): R33.9 - RETENTION OF URINE, UNSPECIFIED
[2018-03-07 17:06] LABS: ANION GAP 7 MMOL/L (8-16); BLOOD UREA NITROGEN 7 mg/dL (7-18); CALCIUM 7.6 mg/dL (8.5-10.1); CHLORIDE 98 mmol/L (98-107); CO2 28 mmol/L (21-32); CREATININE 0.7 mg/dL (0.55-1.3); GLUCOSE,RANDOM 151 mg/dL (74-106); POTASSIUM 3.9 mmol/L (3.5-5.1); SODIUM 134 mmol/L (136-145)
--- NOTE | 2018-03-07 21:22 | CONSULT ---
Consult - text type - Consultation Consultation Note: NEUROSURGERY CONSULTATION Raffi Torres is a 47 year old Latin male who has a history of alcohol abuse who presented to the ER with intoxication and complaints of chest pain and headaches. He is undergoing medical evaluation and treatment for his ethanol abuse and associated transaminitis. Head CT reveals a 2.3cm x 1.9cm x 1.7cm Left falcine meningioma. There is mild frontal mass effect. The patient is neurologically nonfocal from this lesion and currently has several active medical issues which preclude definitive treatment for this mass. I briefly discussed the role of microsurgical resection of this lesion on a semi-elective basis once he has recovered from his current condition. I plan to return to speak with the patient in greater detail with a manager ob to outline the various possible treatment options including observation, microsurgical resection and radiosurgery. All questions were answered.
[2018-03-08] MEDS: chlordiazePOXIDE HCL 25 MG CAPSULE PO SCH ×3 (00:08→12:12)
[2018-03-08] MEDS: THIAMINE HCL 200 MG/2 ML VIAL IVPB SCH ×4 (00:08→21:24)
[2018-03-08] MEDS: HEPARIN NA (PORCINE) 5,000 UNITS/ML 1ML VIAL SQ SCH ×4 (00:08→21:23)
[2018-03-08 06:45] LABS: HEMATOCRIT 34.7 % (35.4-49); HEMOGLOBIN 12.3 GM/dL (11.7-16.9); MCH 29.6 pg (25.7-33.7); MCHC 35.4 g/dl (32.0-35.9); MEAN CELL VOLUME 83.6 fl (80-96); MEAN PLT VOLUME 8.1 fl (7.5-11.1); PLATELET COUNT 114 K/MM3 (134-434); RBC 4.15 M/mm3 (4.00-5.60); RDW 14.5 % (11.9-15.9); WHITE BLOOD COUNT 4.6 K/mm3 (4.0-10.0)
[2018-03-08 07:43] LABS: ALBUMIN 2.9 g/dl (3.4-5.0); ALK PHOS 215 U/L (45-117); ANION GAP 9 MMOL/L (8-16); BILIRUBIN,TOTAL 2.1 mg/dL (0.2-1); BLOOD UREA NITROGEN 7 mg/dL (7-18); CALCIUM 7.9 mg/dL (8.5-10.1); CHLORIDE 99 mmol/L (98-107); CO2 27 mmol/L (21-32); CREATININE 0.6 mg/dL (0.55-1.3); GLUCOSE,RANDOM 90 mg/dL (74-106); MAGNESIUM 1.9 mg/dL (1.8-2.4); PHOSPHOROUS 3.2 mg/dL (2.5-4.9); POTASSIUM 3.5 mmol/L (3.5-5.1); SGOT/AST 266 U/L (15-37); SGPT/ALT 254 U/L (13-61); SODIUM 135 mmol/L (136-145); TOT PROT 6.6 g/dl (6.4-8.2)
[2018-03-08] MEDS: TAMSULOSIN HCL 0.4 MG CAP PO SCH (09:03)
--- NOTE | 2018-03-08 09:31 | PN ---
Progress Note (short form) - Note Progress Note: [facility] *LIVE* Neuro History of Present Illness 47 yo M with a hx of alcoholism (endorses hx of withdrawals) and urinary retention presented to the emergency department with headache and chest pain. Per the patient, he was seen at [facility] for alcohol intoxication after having his last drink at 5pm the day prior. He was given "a pill that made me feel better" but denied he was worked up for the chest pain he was having. His chest pain ceased and then came back with concurrent severe headaches. He denied falling, however his female dyer helper at bedside reportedly stated he could have fallen. CT head was completed and demonstrated left parafalx meningioma approximately 2 cm in size with some mild parameningeal edema per notes. I reviewed this with the patient at bedside with pharmacy general manager. Neurosurgery note reviewed, documented conversation with patient regarding intervention, medical stabilization would be needed if intervention pursued. Patient is well-appearing this morning remains asymptomatic, informed him that it is local and does not spread throughout body and is not malignant metastatic. Complicating the case is that the patient does not have insurance. Active Medications Chlordiazepoxide HCl (Librium -) 25 mg PO [id number] CLEMENTINA Stop: 03/08/18 11:01 Last Admin: 03/08/18 06:20 Dose: 25 mg Chlordiazepoxide HCl (Librium -) 15 mg PO [id number] CLEMENTINA Stop: 03/09/18 11:01 Chlordiazepoxide HCl (Librium -) 25 mg PO Q4H PRN PRN Reason: WITHDRAWAL(CONT SUBST) Stop: 03/09/18 16:30 Last Admin: 03/08/18 02:17 Dose: 25 mg Chlordiazepoxide HCl (Librium -) 10 mg PO [id number] CLEMENTINA Stop: 03/10/18 11:01 Heparin Sodium (Porcine) (Heparin -) 5,000 unit SQ TID CLEMENTINA Last Admin: 03/08/18 06:20 Dose: 5,000 unit Ceftriaxone Sodium 1 gm/ (Dextrose) 100 mls @ 200 mls/hr IVPB DAILY CLEMENTINA; Protocol Last Admin: 03/07/18 09:36 Dose: 200 mls/hr Lactated Ringer's (Lactated Ringers Solution) 1,000 ml in 1,000 mls @ 75 mls/ hr IV ASDIR CLEMENTINA Last Admin: 03/07/18 09:45 Dose: 75 mls/hr Lorazepam (Ativan Injection -) 2 mg IVPUSH Q4H PRN PRN Reason: ANXIETY Last Admin: 03/06/18 14:23 Dose: 2 mg Pantoprazole Sodium (Protonix Iv) 40 mg IVPUSH DAILY [facility] Last Admin: 03/07/18 09:36 Dose: 40 mg Tamsulosin HCl (Flomax -) 0.4 mg PO DAILY@0830 [facility] Last Admin: 03/07/18 09:37 Dose: 0.4 mg Thiamine HCl (Vitamin B1 Injection -) 250 mg IVPB TID [facility] Stop: 03/09/18 13:59 Last Admin: 03/08/18 06:20 Dose: 250 mg *Physical Exam Vital Signs Temperature 98.0 F 03/08/18 06:18 Pulse Rate 90 03/08/18 06:18 Respiratory Rate 20 03/08/18 06:18 Blood Pressure 138/78 03/08/18 06:18 O2 Sat by Pulse Oximetry (%) 97 03/07/18 21:00 - Physical Exam General Appearance: Yes: Nourished, Appropriately Dressed, Disheveled, Alcohol on Breath. No: Apparent Distress HEENT: positive: EOMI, [place], Normal Voice, Symmetrical, Hearing Grossly Normal. negative: Pale Conjunctivae, Scleral Icterus (R), Scleral Icterus (L), Muffled /Hoarse voice, Excessive drooling Neck: positive: Trachea midline. negative: Tender Respiratory/Chest: positive: Lungs Clear, Normal Breath Sounds. negative: Chest Tender, Respiratory Distress, Accessory Muscle Use Cardiovascular: positive: Regular Rhythm, Regular Rate, S1, S2. negative: Systolic Murmur Gastrointestinal/Abdominal: positive: Normal Bowel Sounds, Tender (epigastric, periumbilical, RUQ), Flat, Soft. negative: Distended Male Genitalia: positive: other (catheter in place. urine is orange ) Lymphatic: negative: Adenopathy Musculoskeletal: positive: Normal Inspection. negative: CVA Tenderness Extremity: positive: Normal Capillary Refill, Normal Inspection, Normal Range of Motion. negative: Tender Integumentary: positive: Normal Color, Dry, Warm Neurologic: positive: private investigator II-XII NML intact, Alert, strength symmetric bilaterally, sensory intact bilaterally, finger to nose normal CBCD WBC 4.6 K/mm3 (4.0-10.0) 03/08/18 05:30 RBC 4.15 M/mm3 (4.00-5.60) 03/08/18 05:30 Hgb 12.3 GM/dL (11.7-16.9) 03/08/18 05:30 Hct 34.7 % (35.4-49) L 03/08/18 05:30 MCV 83.6 fl (80-96) 03/08/18 05:30 MCHC 35.4 g/dl (32.0-35.9) 03/08/18 05:30 RDW 14.5 % (11.9-15.9) 03/08/18 05:30 Plt Count 114 K/MM3 (134-434) L 03/08/18 05:30 MPV 8.1 fl (7.5-11.1) 03/08/18 05:30 CMP Sodium 135 mmol/L (136-145) L 03/08/18 05:30 Potassium 3.5 mmol/L (3.5-5.1) 03/08/18 05:30 Chloride 99 mmol/L (98-107) 03/08/18 05:30 Carbon Dioxide 27 mmol/L (21-32) 03/08/18 05:30 Anion Gap 9 MMOL/L (8-16) 03/08/18 05:30 BUN 7 mg/dL (7-18) 03/08/18 05:30 Creatinine 0.6 mg/dL (0.55-1.3) 03/08/18 05:30 Creat Clearance w eGFR > 60 (>60) 03/08/18 05:30 Random Glucose 90 mg/dL (74-106) 03/08/18 05:30 Calcium 7.9 mg/dL (8.5-10.1) L 03/08/18 05:30 Total Bilirubin 2.1 mg/dL (0.2-1) H 03/08/18 05:30 AST 266 U/L (15-37) H 03/08/18 05:30 ALT 254 U/L (13-61) H 03/08/18 05:30 Alkaline Phosphatase 215 U/L (45-117) H 03/08/18 05:30 Total Protein 6.6 g/dl (6.4-8.2) 03/08/18 05:30 Albumin 2.9 g/dl (3.4-5.0) L 03/08/18 05:30 CARDIAC ENZYMES Creatine Kinase 381 IU/L (26-308) H 03/06/18 02:44 Troponin I 0.08 ng/ml (0.00-0.05) H 03/07/18 05:15 Medical Decision Making 47 yo M with a hx of alcoholism (endorses hx of withdrawals) and urinary retention presented to the emergency department with headache and chest pain. Per the patient, he was seen at [facility] for alcohol intoxication after having his last drink at 5pm the day prior. He was given "a pill that made me feel better" but denied he was worked up for the chest pain he was having. His chest pain ceased and then came back with concurrent severe headaches. He denied falling, however his female dyer helper at bedside reportedly stated he could have fallen. CT head was completed and demonstrated left parafalx meningioma approximately 2 cm in size with some mild parameningeal edema per notes. Agree with MRI brain NSGY note reviewed Does not require steroids at this time Headache improved Monitor blood pressure, maintain normotensive range Continue alcohol detox Monitor seizure activity Maintain hydration
[2018-03-08] MEDS ORDERED: cefTRIAXone SODIUM 1 GM VIAL ONE (09:48)
[2018-03-08] MEDS ORDERED: DEXTROSE 5%-WATER 100 ML IVPB ONE (09:48)
[2018-03-08] MEDS: LACTATED RINGERS SOLUTION 1,000 ML/1,000 ML INFUS.BAG IV SCH (10:02)
[2018-03-08] MEDS: PANTOPRAZOLE SODIUM 40 MG VIAL IVPUSH SCH (10:03)
[2018-03-08] MEDS: CEFTRIAXONE 1 GM in DEXTROSE 5%-WATER 100 ML IVPB SCH (10:03)
--- NOTE | 2018-03-08 11:30 | PN ---
Progress Note (short form) - Note Progress Note: Patient resting comfortably with spouse. No complaints. Feels that his headaches are better. Discussed the role of surgery for resection of his lesion, however, this would be an elective matter which is not required at this time. I encouraged him to comply with his sobriety and will see him as an outpatient to discuss further. - no need for inpatient hospitalization for this lesion - patient may be discharged from a Neurosurgery standpoint
--- NOTE | 2018-03-08 13:47 | PN ---
Physical Exam: SUBJECTIVE:Patient seen and examined at bed side this morning. Chest pain has resolved. Still has discomfort in the suprapubic area. Denies palpitation, sob , cough, abdominal pain, nausea or vomiting. Sam was discontinue yesterday and now using urinal without any issues. No acute overnight events. No events in tele. OBJECTIVE: Vital Signs Period Temp Pulse Resp BP Sys/Orr Pulse Ox Last 24 Hr 97.6 F-98.6 F 90-112 20-20 126-146/72-99 96-97 GENERAL: Middle aged male, lying in bed, awake, alert, oriented x 3, in no acute distress. HEAD: Normal with no signs of trauma. EYES: EOM intact, no nystagmus, no pallor or icterus. ENT: Ears normal, moist mucous membranes. NECK: Supple, no JVD. LUNGS: Breath sounds equal, clear to auscultation bilaterally, no wheezes, no crackles, no accessory muscle use. HEART: Tachycardic, Regular rate and rhythm, S1, S2 without murmur. ABDOMEN: Soft, tenderness in the suprapubic area, nondistended, BS +, no guarding, no rebound, no hepatosplenomegaly, no masses. EXTREMITIES: 2+ pulses, warm, well-perfused, no edema. NEUROLOGICAL: No facial droop, power 5/5 in all extremities, sensation intact, Cranial nerves II through XII grossly intact. Normal speech, gait not observed, fine tremors in the extremities. PSYCH: Normal mood, normal affect. SKIN: Warm, dry, normal turgor, no rashes or lesions noted Laboratory Results - last 24 hr 03/06/18 03/07/18 03/07/18 07:05 05:15 15:30 WBC RBC Hgb Hct MCV MCH MCHC RDW Plt Count MPV Sodium 134 L Potassium 3.9 Chloride 98 Carbon Dioxide 28 Anion Gap 7 L BUN 7 Creatinine 0.7 Creat Clearance w eGFR > 60 Random Glucose 151 H Calcium 7.6 L Ionized Calcium 4.4 L Phosphorus Magnesium Total Bilirubin AST ALT Alkaline Phosphatase Total Protein Albumin Prostate Specific Ag 2.40 03/08/18 03/08/18 05:30 05:30 WBC 4.6 RBC 4.15 Hgb 12.3 Hct 34.7 L MCV 83.6 MCH 29.6 MCHC 35.4 RDW 14.5 Plt Count 114 L MPV 8.1 Sodium 135 L Potassium 3.5 Chloride 99 Carbon Dioxide 27 Anion Gap 9 BUN 7 Creatinine 0.6 Creat Clearance w eGFR > 60 Random Glucose 90 Calcium 7.9 L Ionized Calcium Phosphorus 3.2 Magnesium 1.9 Total Bilirubin 2.1 H AST 266 H ALT 254 H Alkaline Phosphatase 215 H Total Protein 6.6 Albumin 2.9 L Prostate Specific Ag Active Medications Generic Name Dose Route Start Last Admin Trade Name Freq PRN Reason Stop Dose Admin Chlordiazepoxide HCl 15 mg 03/08/18 17:00 Librium - PO 03/09/18 11:01 [id number] [facility]INA Chlordiazepoxide HCl 25 mg 03/06/18 16:31 03/08/18 02:17 Librium - PO 03/09/18 16:30 25 mg Q4H PRN Administration WITHDRAWAL(CONT SUBST) Chlordiazepoxide HCl 10 mg 03/09/18 17:00 Librium - PO 03/10/18 11:01 [id number] CLE[facility]INA Heparin Sodium (Porcine) 5,000 unit 03/07/18 14:00 03/08/18 06:20 Heparin - SQ 5,000 unit TID [facility] Administration Ceftriaxone Sodium 1 gm/ 100 mls @ 200 mls/hr 03/06/18 10:00 03/08/18 10:03 Dextrose IVPB 200 mls/hr DAILY [facility] Administration Protocol Lactated Ringer's 1,000 ml in 1,000 mls @ 75 mls/hr 03/06/18 06:45 03/08/18 10:02 Lactated Ringers Solution IV 75 mls/hr ASDIR CLEMENTINA Administration Lorazepam 2 mg 03/06/18 09:35 03/06/18 14:23 Ativan Injection - IVPUSH 2 mg Q4H PRN Administration ANXIETY Pantoprazole Sodium 40 mg 03/06/18 10:00 03/08/18 10:03 Protonix Iv IVPUSH 40 mg DAILY [facility] Administration Tamsulosin HCl 0.4 mg 03/07/18 08:30 03/08/18 09:03 Flomax - PO 0.4 mg DAILY@0830 [facility] Administration Thiamine HCl 250 mg 03/06/18 14:00 03/08/18 06:20 Vitamin B1 Injection - IVPB 03/09/18 13:59 250 mg TID [facility] Administration 03/06/[address] showed 2.3 x 1.9 x1.7 cm parafacine mass possibly a meningioma 03/07/18 MRI of brain with and without contrast: Predominately left sided parafalcine meningioma is observed along the inferior posterior falx cerebri. 2.3 cm x 1.8 cm x 2.1 cm. Posterior focal peritumoral edema is noted. ASSESSMENT/PLAN: Patient is a 47 year old male with significant PMHx of Alcohol abuse (binge drinking for 3 weeks) and urinary retention, came in to the ED complaining of chest pain and headache was found to have meningioma on CT. # Alcohol abuse On Libirum protocol. No signs of agitation or tremors. Continue Thiamine 250mg IV TID x [address] Pride who will come and evaluate the patient for possible rehab placement if patient agrees. # Newly diagnosed Meningioma Brain MRI done yesterday, report as mentioned above Spoke with Dr. Mancini who recommends patient can be d/c home from neurosurg stand point. Needs to f/u at his office as outpatient. Discussed case with Dr. Lal who agrees to the above mentioned plan. # Chest pain r/o ACS. Could be musculoskeletal (pain on palpation)- now resolved O.09---> 0.11---> 0.09--> 0.08 03/[address] or T wave changes. ECHO 03/06/18: Left ventricle is normal. No regional wall abnormalities, EF 65-70 %. Right vent systolic function normal. Pul systolic pressure 25 mmHg # UTI Urine cultures grew Group D strep or enterococcus. Awaiting c/s Will continue IV Ceftriaxone. Sam discontinued yesterday, using urinal without any issues. # Diarrhoea could be viral gastroenteritis Resolved. # Hypertriglyceridemia Due to Elevated lipase, will hold off the meds until discharge Will repeat TG and lipase in AM. # Transaminitis AST/ALT/ALP: 260/282/205 ---> 284/257/218 --> 266/254/215. T bili 2.5--> 2.1 . Likely due to alcohol intake. Will repeat LFT's in AM it worsens, will get recommendations from GI. Hepatitis panel negative. HIV negative USG abdomen showed Hepatic steatosis and fatty liver # FEN Discontinued fluids, can tolerate PO Electrolytes: WNL. To be repeated in AM since his electrolytes has been abnormal since admission Cholesterol controlled diet # Prophylaxis For DVT: Heparin 5000 IU sq TID For GI: IV Protonix 40 mg Daily # Code Status: Full Code Illness, Investigation and Plan of care explained to the patient. He verbalized understanding. Case discussed with Dr. Llamas. Problem List - Problems (1) Alcohol withdrawal Code(s): F10.239 - ALCOHOL DEPENDENCE WITH WITHDRAWAL, UNSPECIFIED (2) Brain mass Code(s): G93.9 - DISORDER OF BRAIN, UNSPECIFIED (3) Chest pain Code(s): R07.9 - CHEST PAIN, UNSPECIFIED (4) Hypertriglyceridemia Code(s): E78.1 - PURE HYPERGLYCERIDEMIA (5) Elevated lipase Code(s): R74.8 - ABNORMAL LEVELS OF OTHER SERUM ENZYMES (6) EtOH dependence Code(s): F10.20 - ALCOHOL DEPENDENCE, UNCOMPLICATED (7) Transaminitis Code(s): R74.0 - NONSPEC ELEV OF LEVELS OF TRANSAMNS & LACTIC ACID DEHYDRGNSE (8) Urinary retention Code(s): R33.9 - RETENTION OF URINE, UNSPECIFIED Visit type - Emergency Visit Emergency Visit: Yes ED Registration Date: 03/06/18 Care time: The patient presented to the Emergency Department on the above date and was hospitalized for further evaluation of their emergent condition. - New Patient This patient is new to me today: No - Critical Care Critical Care patient: No - Discharge Referral Referred to [facility] Med [facility] No
--- NOTE | 2018-03-08 14:12 | PN ---
Teaching Attending Note Name of Resident: Annemarie Karimi ATTENDING PHYSICIAN STATEMENT I saw and evaluated the patient. I reviewed the resident's note and discussed the case with the resident. I agree with the resident's findings and plan as documented. SUBJECTIVE: Patient reports lower abdominal pain. OBJECTIVE: Vital Signs Period Temp Pulse Resp BP Sys/Orr Pulse Ox Last 24 Hr 97.6 F-98.6 F 90-110 18-20 102-146/66-99 96-97 HEART: S1S2, RRR LUNGS: Clear ABDOMEN: Soft, non-tender, non-distended, normal BS EXTREMITIES: no edema Laboratory Results - last 24 hr 03/06/18 03/07/18 03/07/18 07:05 05:15 15:30 WBC RBC Hgb Hct MCV MCH MCHC RDW Plt Count MPV Sodium 134 L Potassium 3.9 Chloride 98 Carbon Dioxide 28 Anion Gap 7 L BUN 7 Creatinine 0.7 Creat Clearance w eGFR > 60 Random Glucose 151 H Calcium 7.6 L Ionized Calcium 4.4 L Phosphorus Magnesium Total Bilirubin AST ALT Alkaline Phosphatase Total Protein Albumin Prostate Specific Ag 2.40 03/08/18 03/08/18 05:30 05:30 WBC 4.6 RBC 4.15 Hgb 12.3 Hct 34.7 L MCV 83.6 MCH 29.6 MCHC 35.4 RDW 14.5 Plt Count 114 L MPV 8.1 Sodium 135 L Potassium 3.5 Chloride 99 Carbon Dioxide 27 Anion Gap 9 BUN 7 Creatinine 0.6 Creat Clearance w eGFR > 60 Random Glucose 90 Calcium 7.9 L Ionized Calcium Phosphorus 3.2 Magnesium 1.9 Total Bilirubin 2.1 H AST 266 H ALT 254 H Alkaline Phosphatase 215 H Total Protein 6.6 Albumin 2.9 L Prostate Specific Ag Current Medications Generic Name Dose Route Start Last Admin Trade Name Freq PRN Reason Stop Dose Admin Chlordiazepoxide HCl 15 mg 03/08/18 17:00 Librium - PO 03/09/18 11:01 [id number] CLEMENTINA Chlordiazepoxide HCl 25 mg 03/06/18 16:31 03/08/18 02:17 Librium - PO 03/09/18 16:30 25 mg Q4H PRN Administration WITHDRAWAL(CONT SUBST) Chlordiazepoxide HCl 10 mg 03/09/18 17:00 Librium - PO 03/10/18 11:01 [id number] CLEMENTINA Heparin Sodium (Porcine) 5,000 unit 03/07/18 14:00 03/08/18 06:20 Heparin - SQ 5,000 unit TID [facility] Administration Ceftriaxone Sodium 1 gm/ 100 mls @ 200 mls/hr 03/06/18 10:00 03/08/18 10:03 Dextrose IVPB 200 mls/hr DAILY [facility] Administration Protocol Lorazepam 2 mg 03/06/18 09:35 03/06/18 14:23 Ativan Injection - IVPUSH 2 mg Q4H PRN Administration ANXIETY Pantoprazole Sodium 40 mg 03/06/18 10:00 03/08/18 10:03 Protonix Iv IVPUSH 40 mg DAILY [facility] Administration Tamsulosin HCl 0.4 mg 03/07/18 08:30 03/08/18 09:03 Flomax - PO 0.4 mg DAILY@0830 [facility] Administration Thiamine HCl 250 mg 03/06/18 14:00 03/08/18 06:20 Vitamin B1 Injection - IVPB 03/09/18 13:59 250 mg TID [facility] Administration ASSESSMENT AND PLAN: This is a 47 year old man with a history of alcohol abuse who presented to the ED with chest pain and headache. 1. Alcohol abuse - No signs of withdrawal - Continue Librium detox, Thiamine - Detox consult 2. Meningioma - Outpatient neurosurgery follow up 3. Chest pain - Resolved, was reproducible on exam - Echo shows normal LV, LVEF 65-70%, no wall motion abnormalities, mildly impaired relaxation, normal RV, mild MR, mild TR, PA systolic pressure at least 25 mm Hg 4. UTI - Urine culture growing group D Strep or Enterococcus - Continue ceftriaxone - Follow up identification and sensitivities 5. Urinary retention - Sam discontinued - Voiding without difficulty - Continue Flomax 6. Diarrhea - Resolved 7. Hypertriglyceridemia - Repeat fasting in AM 8. Hepatic transaminitis secondary to alcohol, fatty liver - Improving - Continue to monitor - Hep A IgM, hep C Ab, HBsAg, HBcAb, HIV Ab, HIV P24 Ag negative
[2018-03-08] MEDS: chlordiazePOXIDE 5 MG CAPSULE PO SCH ×2 (17:36→23:15)
[2018-03-09] MEDS: HEPARIN NA (PORCINE) 5,000 UNITS/ML 1ML VIAL SQ SCH ×3 (05:15→22:26)
[2018-03-09] MEDS: chlordiazePOXIDE 5 MG CAPSULE PO SCH ×4 (05:15→22:26)
[2018-03-09] MEDS: THIAMINE HCL 200 MG/2 ML VIAL IVPB SCH (05:16)
[2018-03-09 07:08] LABS: ALBUMIN 3.1 g/dl (3.4-5.0); ALK PHOS 212 U/L (45-117); ANION GAP 6 MMOL/L (8-16); BILIRUBIN,TOTAL 1.8 mg/dL (0.2-1); BLOOD UREA NITROGEN 8 mg/dL (7-18); CALCIUM 7.9 mg/dL (8.5-10.1); CHLORIDE 103 mmol/L (98-107); CO2 28 mmol/L (21-32); CREATININE 0.6 mg/dL (0.55-1.3); GLUCOSE,RANDOM 90 mg/dL (74-106); LIPASE 493 U/L (73-393); MAGNESIUM 1.8 mg/dL (1.8-2.4); POTASSIUM 3.6 mmol/L (3.5-5.1); SGOT/AST 204 U/L (15-37); SGPT/ALT 236 U/L (13-61); SODIUM 137 mmol/L (136-145); TOT PROT 6.8 g/dl (6.4-8.2); TRIGLYCERIDES 316 mg/dL (0-150)
--- NOTE | 2018-03-09 08:47 | PN ---
Progress Note (short form) - Note Progress Note: [facility] *LIVE* Neuro History of Present Illness 47 yo M with a hx of alcoholism (endorses hx of withdrawals) and urinary retention presented to the emergency department with headache and chest pain. Per the patient, he was seen at [facility] for alcohol intoxication after having his last drink at 5pm the day prior. He was given "a pill that made me feel better" but denied he was worked up for the chest pain he was having. His chest pain ceased and then came back with concurrent severe headaches. He denied falling, however his female end matcher at bedside reportedly stated he could have fallen. CT head was completed and demonstrated left parafalx meningioma approximately 2 cm in size with some mild parameningeal edema per notes. Neurosurgery note reviewed, documented conversation with patient regarding intervention, medical stabilization would be needed if intervention pursued. Resident note reviewed, mentioned d/c and outpaitent nsgy follow up. No objection to this. Patient is well-appearing this morning remains asymptomatic, asking about discharge. Active Medications Chlordiazepoxide HCl (Librium -) 15 mg PO [id number] CLEMENTINA Stop: 03/09/18 11:01 Last Admin: 03/09/18 05:15 Dose: 15 mg Chlordiazepoxide HCl (Librium -) 25 mg PO Q4H PRN PRN Reason: WITHDRAWAL(CONT SUBST) Stop: 03/09/18 16:30 Last Admin: 03/08/18 02:17 Dose: 25 mg Chlordiazepoxide HCl (Librium -) 10 mg PO [id number] CLEMENTINA Stop: 03/10/18 11:01 Heparin Sodium (Porcine) (Heparin -) 5,000 unit SQ TID CLEMENTINA Last Admin: 03/09/18 05:15 Dose: 5,000 unit Ceftriaxone Sodium 1 gm/ (Dextrose) 100 mls @ 200 mls/hr IVPB DAILY CLEMENTINA; Protocol Last Admin: 03/08/18 10:03 Dose: 200 mls/hr Lorazepam (Ativan Injection -) 2 mg IVPUSH Q4H PRN PRN Reason: ANXIETY Last Admin: 03/06/18 14:23 Dose: 2 mg Pantoprazole Sodium (Protonix Iv) 40 mg IVPUSH DAILY [facility] Last Admin: 03/08/18 10:03 Dose: 40 mg Tamsulosin HCl (Flomax -) 0.4 mg PO DAILY@0830 [facility] Last Admin: 03/08/18 09:03 Dose: 0.4 mg Thiamine HCl (Vitamin B1 Injection -) 250 mg IVPB TID [facility] Stop: 03/09/18 13:59 Last Admin: 03/09/18 05:16 Dose: 250 mg *Physical Exam Vital Signs Period Temp Pulse Resp BP Sys/Orr Pulse Ox Last 24 Hr 97.5 F-98.2 F 83-110 17-20 102-129/66-86 96-97 - Physical Exam General Appearance: Yes: Nourished, Appropriately Dressed, Disheveled, Alcohol on Breath. No: Apparent Distress HEENT: positive: EOMI, ISRRA[place], Normal Voice, Symmetrical, Hearing Grossly Normal. negative: Pale Conjunctivae, Scleral Icterus (R), Scleral Icterus (L), Muffled /Hoarse voice, Excessive drooling Neck: positive: Trachea midline. negative: Tender Respiratory/Chest: positive: Lungs Clear, Normal Breath Sounds. negative: Chest Tender, Respiratory Distress, Accessory Muscle Use Cardiovascular: positive: Regular Rhythm, Regular Rate, S1, S2. negative: Systolic Murmur Gastrointestinal/Abdominal: positive: Normal Bowel Sounds, Tender (epigastric, periumbilical, RUQ), Flat, Soft. negative: Distended Male Genitalia: positive: other (catheter in place. urine is orange ) Lymphatic: negative: Adenopathy Musculoskeletal: positive: Normal Inspection. negative: CVA Tenderness Extremity: positive: Normal Capillary Refill, Normal Inspection, Normal Range of Motion. negative: Tender Integumentary: positive: Normal Color, Dry, Warm Neurologic: positive: history instructor II-XII NML intact, Alert, strength symmetric bilaterally, sensory intact bilaterally, finger to nose normal CBCD WBC 4.6 K/mm3 (4.0-10.0) 03/08/18 05:30 RBC 4.15 M/mm3 (4.00-5.60) 03/08/18 05:30 Hgb 12.3 GM/dL (11.7-16.9) 03/08/18 05:30 Hct 34.7 % (35.4-49) L 03/08/18 05:30 MCV 83.6 fl (80-96) 03/08/18 05:30 MCHC 35.4 g/dl (32.0-35.9) 03/08/18 05:30 RDW 14.5 % (11.9-15.9) 03/08/18 05:30 Plt Count 114 K/MM3 (134-434) L 03/08/18 05:30 MPV 8.1 fl (7.5-11.1) 03/08/18 05:30 CMP Sodium 137 mmol/L (136-145) 03/09/18 05:30 Potassium 3.6 mmol/L (3.5-5.1) 03/09/18 05:30 Chloride 103 mmol/L (98-107) 03/09/18 05:30 Carbon Dioxide 28 mmol/L (21-32) 03/09/18 05:30 Anion Gap 6 MMOL/L (8-16) L 03/09/18 05:30 BUN 8 mg/dL (7-18) 03/09/18 05:30 Creatinine 0.6 mg/dL (0.55-1.3) 03/09/18 05:30 Creat Clearance w eGFR > 60 (>60) 03/09/18 05:30 Random Glucose 90 mg/dL (74-106) 03/09/18 05:30 Calcium 7.9 mg/dL (8.5-10.1) L 03/09/18 05:30 Total Bilirubin 1.8 mg/dL (0.2-1) H 03/09/18 05:30 AST 204 U/L (15-37) H 03/09/18 05:30 ALT 236 U/L (13-61) H 03/09/18 05:30 Alkaline Phosphatase 212 U/L (45-117) H 03/09/18 05:30 Total Protein 6.8 g/dl (6.4-8.2) 03/09/18 05:30 Albumin 3.1 g/dl (3.4-5.0) L 03/09/18 05:30 CARDIAC ENZYMES Creatine Kinase 381 IU/L (26-308) H 03/06/18 02:44 Troponin I 0.08 ng/ml (0.00-0.05) H 03/07/18 05:15 Medical Decision Making 47 yo M with a hx of alcoholism (endorses hx of withdrawals) and urinary retention presented to the emergency department with headache and chest pain. Per the patient, he was seen at [facility] for alcohol intoxication after having his last drink at 5pm the day prior. He was given "a pill that made me feel better" but denied he was worked up for the chest pain he was having. His chest pain ceased and then came back with concurrent severe headaches. He denied falling, however his female end matcher at bedside reportedly stated he could have fallen. CT head was completed and demonstrated left parafalx meningioma approximately 2 cm in size with some mild parameningeal edema per notes. NSGY note reviewed, planned for outpatient re-eval Does not require steroids at this time Headache improved Monitor blood pressure, maintain normotensive range Continue alcohol detox Maintain hydration Neurologically stable at this time
--- NOTE | 2018-03-09 08:49 | PN ---
[facility] Progress Note (SOAP) Subjective: patient referred for consultation for ETOH use/abuse , currently on Librium protocol, states he is feeling much better, denies CP/ abdominal pain/ nausea/ vomiting , diarrhea , tremors, sweating, reports prior alcohol use x 3 weeks 5 -6 BEERS/DAY & SEVERAL TEQUILA SHOTS , denies previous withdrawal seizures , blackouts and/or falls, no injuries to self or others. Reports prior sobriety x 12 years " I did it on my own " , prior alcohol use - social. Denies illicits . Quit tobacco several years ago . PMHx : hepatic steatosis, transaminitis, uti, meningioma, old GA, UTI , HLD . Social hx : lives alone in rented room , family in [facility], has not visited them in 15 years since arriving in the , works as day public works laborer in construction. Active Medications Generic Name Dose Route Start Last Admin Trade Name Freq PRN Reason Stop Dose Admin Chlordiazepoxide HCl 15 mg 03/08/18 17:00 03/09/18 05:15 Librium - PO 03/09/18 11:01 15 mg [id number] CLEMENTINA Administration Chlordiazepoxide HCl 25 mg 03/06/18 16:31 03/08/18 02:17 Librium - PO 03/09/18 16:30 25 mg Q4H PRN Administration WITHDRAWAL(CONT SUBST) Chlordiazepoxide HCl 10 mg 03/09/18 17:00 Librium - PO 03/10/18 11:01 [id number] CLEMENTINA Heparin Sodium (Porcine) 5,000 unit 03/07/18 14:00 03/09/18 05:15 Heparin - SQ 5,000 unit TID [facility] Administration Ceftriaxone Sodium 1 gm/ 100 mls @ 200 mls/hr 03/06/18 10:00 03/08/18 10:03 Dextrose IVPB 200 mls/hr DAILY [facility] Administration Protocol Lorazepam 2 mg 03/06/18 09:35 03/06/18 14:23 Ativan Injection - IVPUSH 2 mg Q4H PRN Administration ANXIETY Pantoprazole Sodium 40 mg 03/06/18 10:00 03/08/18 10:03 Protonix Iv IVPUSH 40 mg DAILY [facility] Administration Tamsulosin HCl 0.4 mg 03/07/18 08:30 03/08/18 09:03 Flomax - PO 0.4 mg DAILY@0830 [facility] Administration Thiamine HCl 250 mg 03/06/18 14:00 03/09/18 05:16 Vitamin B1 Injection - IVPB 03/09/18 13:59 250 mg TID CLEMENTINA Administration Objective: 03/09/18 08:47 wnwd NAD , resting comfortably , no distress noted . Neuro : AAOx 3 , no tremors . Abnormal Lab Results 03/09/18 05:30 Anion Gap 6 L Calcium 7.9 L Total Bilirubin 1.8 H AST 204 H ALT 236 H Alkaline Phosphatase 212 H Albumin 3.1 L Triglycerides 316 H Lipase 493 H Vital Signs - 24 hr 03/08/18 03/08/18 03/08/18 09:00 10:00 14:00 Temperature 97.9 F 97.8 F Pulse Rate 110 H 107 H Respiratory 20 18 Rate Blood Pressure 126/86 102/66 O2 Sat by Pulse 96 Oximetry (%) 03/08/18 03/08/18 03/08/18 17:00 20:20 20:37 Temperature 97.6 F 98.2 F Pulse Rate 98 H 102 H Respiratory 20 18 Rate Blood Pressure 122/70 129/82 O2 Sat by Pulse 97 Oximetry (%) 03/09/18 03/09/18 01:27 05:00 Temperature 98.0 F 97.5 F L Pulse Rate 85 83 Respiratory 18 17 Rate Blood Pressure 123/81 125/81 O2 Sat by Pulse Oximetry (%) Assessment: Alcohol abuse with withdrawal Plan: continue current Chlordiazepoxide taper until completion 03/10/18 . Discussed at length with patient regarding rehabilitation services, does not want inpatient rehab due to work commitments , prefers outpatient / evening and weekend hours , agreeable to accept referral from family welfare social work professor for after-care outpatient program in [place].
[2018-03-09 09:09] LABS: HEMATOCRIT 37.1 % (35.4-49); MCH 27.9 pg (25.7-33.7); MCHC 32.4 g/dl (32.0-35.9); MEAN CELL VOLUME 86.2 fl (80-96); MEAN PLT VOLUME 8.8 fl (7.5-11.1); PLATELET COUNT 127 K/MM3 (134-434); RBC 4.31 M/mm3 (4.00-5.60); RDW 14.9 % (11.9-15.9); WHITE BLOOD COUNT 6.1 K/mm3 (4.0-10.0)
[2018-03-09] MEDS ORDERED: DEXTROSE 5%-WATER 100 ML IVPB ONE (09:24)
[2018-03-09] MEDS ORDERED: cefTRIAXone SODIUM 1 GM VIAL ONE (09:24)
[2018-03-09] MEDS: PANTOPRAZOLE SODIUM 40 MG VIAL IVPUSH SCH (09:31)
[2018-03-09] MEDS: CEFTRIAXONE 1 GM in DEXTROSE 5%-WATER 100 ML IVPB SCH (09:31)
[2018-03-09] MEDS: TAMSULOSIN HCL 0.4 MG CAP PO SCH (09:31)
--- NOTE | 2018-03-09 11:55 | PN ---
Teaching Attending Note Name of Resident: Annemarie Karimi ATTENDING PHYSICIAN STATEMENT I saw and evaluated the patient. I reviewed the resident's note and discussed the case with the resident. I agree with the resident's findings and plan as documented. SUBJECTIVE: No complaints. Abdominal pain is improving. OBJECTIVE: Vital Signs Period Temp Pulse Resp BP Sys/Orr Pulse Ox Last 24 Hr 97.5 F-98.2 F 83-107 17-20 102-129/66-82 97 HEART: S1S2, RRR LUNGS: Clear ABDOMEN: Soft, non-tender, non-distended, normal BS EXTREMITIES: No edema Laboratory Results - last 24 hr 03/09/18 03/09/18 05:30 05:30 WBC 6.1 RBC 4.31 Hgb 12.0 Hct 37.1 MCV 86.2 MCH 27.9 MCHC 32.4 RDW 14.9 Plt Count 127 L MPV 8.8 Sodium 137 Potassium 3.6 Chloride 103 Carbon Dioxide 28 Anion Gap 6 L BUN 8 Creatinine 0.6 Creat Clearance w eGFR > 60 Random Glucose 90 Calcium 7.9 L Phosphorus 3.0 Magnesium 1.8 Total Bilirubin 1.8 H AST 204 H ALT 236 H Alkaline Phosphatase 212 H Total Protein 6.8 Albumin 3.1 L Triglycerides 316 H Lipase 493 H Current Medications Generic Name Dose Route Start Last Admin Trade Name Freq PRN Reason Stop Dose Admin Chlordiazepoxide HCl 25 mg 03/06/18 16:31 18 02:17 Librium - PO 03/09/18 16:30 25 mg Q4H PRN Administration WITHDRAWAL(CONT SUBST) Chlordiazepoxide HCl 10 mg 03/09/18 17:00 Librium - PO 03/10/18 11:01 [id number] CLEMENTINA Heparin Sodium (Porcine) 5,000 unit 03/07/18 14:00 03/09/18 05:15 Heparin - SQ 5,000 unit TID [facility] Administration Ceftriaxone Sodium 1 gm/ 100 mls @ 200 mls/hr 03/06/18 10:00 03/09/18 09:31 Dextrose IVPB 200 mls/hr DAILY [facility] Administration Protocol Pantoprazole Sodium 40 mg 03/06/18 10:00 03/09/18 09:31 Protonix Iv IVPUSH 40 mg DAILY [facility] Administration Tamsulosin HCl 0.4 mg 03/07/18 08:30 03/09/18 09:31 Flomax - PO 0.4 mg DAILY@0830 [facility] Administration Thiamine HCl 250 mg 03/06/18 14:00 03/09/18 05:16 Vitamin B1 Injection - IVPB 03/09/18 13:59 250 mg TID [facility] Administration ASSESSMENT AND PLAN: This is a 47 year old man with a history of alcohol abuse who presented to the ED with chest pain and headache. 1. Alcohol abuse - No signs of withdrawal - Continue Librium detox, Thiamine - Detox consult appreciated - patient prefers outpatient program 2. Meningioma - Outpatient neurosurgery follow up 3. Chest pain - Resolved, was reproducible on exam - Echo shows normal LV, LVEF 65-70%, no wall motion abnormalities, mildly impaired relaxation, normal RV, mild MR, mild TR, PA systolic pressure at least 25 mm Hg 4. UTI - Urine culture growing group D Strep or Enterococcus - Continue ceftriaxone - Follow up identification and sensitivities 5. Urinary retention - Sma discontinued - Voiding without difficulty - Continue Flomax 6. Diarrhea - Resolved 7. Hypertriglyceridemia - Repeat fasting in AM 8. Hepatic transaminitis secondary to alcohol, fatty liver - Improving - Continue to monitor - Hep A IgM, hep C Ab, HBsAg, HBcAb, HIV Ab, HIV P24 Ag negative 9. Disposition - Expect discharge tomorrow after Librium detox is completed
--- NOTE | 2018-03-09 12:33 | PN ---
Progress Note (short form) - Note Progress Note: Patient well appearing and ready for discharge from Neurosurgery standpoint. Will see in office to plan potential tumor resection versus radiosurgery.
--- NOTE | 2018-03-09 14:59 | PN ---
Physical Exam: SUBJECTIVE: Patient seen and examined at bed side this morning. Feels good. Denies chest pain, sob, cough, palpitation, abdominal pain, nausea or vomiting. No acute overnight events. OBJECTIVE: Vital Signs Period Temp Pulse Resp BP Sys/Orr Pulse Ox Last 24 Hr 97.5 F-98.6 F 83-102 17-20 122-129/70-87 97-97 GENERAL: Middle aged male, lying in bed, awake, alert, oriented x 3, in no acute distress. HEAD: Normal with no signs of trauma. EYES: EOM intact, no nystagmus, no pallor or icterus. ENT: Ears normal, moist mucous membranes. NECK: Supple, no JVD. LUNGS: Breath sounds equal, clear to auscultation bilaterally, no wheezes, no crackles, no accessory muscle use. HEART: Tachycardic, Regular rate and rhythm, S1, S2 without murmur. ABDOMEN: Soft, tenderness in the suprapubic area, nondistended, BS +, no guarding, no rebound, no hepatosplenomegaly, no masses. EXTREMITIES: 2+ pulses, warm, well-perfused, no edema. NEUROLOGICAL: No facial droop, power 5/5 in all extremities, sensation intact, Cranial nerves II through XII grossly intact. Normal speech, gait not observed, fine tremors in the extremities. PSYCH: Normal mood, normal affect. SKIN: Warm, dry, normal turgor, no rashes or lesions noted Laboratory Results - last 24 hr 03/09/18 03/09/18 05:30 05:30 WBC 6.1 RBC 4.31 Hgb 12.0 Hct 37.1 MCV 86.2 MCH 27.9 MCHC 32.4 RDW 14.9 Plt Count 127 L MPV 8.8 Sodium 137 Potassium 3.6 Chloride 103 Carbon Dioxide 28 Anion Gap 6 L BUN 8 Creatinine 0.6 Creat Clearance w eGFR > 60 Random Glucose 90 Calcium 7.9 L Phosphorus 3.0 Magnesium 1.8 Total Bilirubin 1.8 H AST 204 H ALT 236 H Alkaline Phosphatase 212 H Total Protein 6.8 Albumin 3.1 L Triglycerides 316 H Lipase 493 H Active Medications Generic Name Dose Route Start Last Admin Trade Name Freq PRN Reason Stop Dose Admin Chlordiazepoxide HCl 25 mg 03/06/18 16:31 12/19/18 02:17 Librium - PO 03/09/18 16:30 25 mg Q4H PRN Administration WITHDRAWAL(CONT SUBST) Chlordiazepoxide HCl 10 mg 03/09/18 17:00 Librium - PO 03/10/18 11:01 [id number] CLEMENTINA Heparin Sodium (Porcine) 5,000 unit 03/07/18 14:00 03/09/18 13:37 Heparin - SQ 5,000 unit TID CLEMENTINA Administration Ceftriaxone Sodium 1 gm/ 100 mls @ 200 mls/hr 03/06/18 10:00 03/09/18 09:31 Dextrose IVPB 200 mls/hr DAILY CLEMENTINA Administration Protocol Pantoprazole Sodium 40 mg 03/06/18 10:00 03/09/18 09:31 Protonix Iv IVPUSH 40 mg DAILY CLEMENTINA Administration Tamsulosin HCl 0.4 mg 03/07/18 08:30 03/09/18 09:31 Flomax - PO 0.4 mg DAILY@0830 CLEMENTINA Administration ASSESSMENT/PLAN: 03/06/[address] showed 2.3 x 1.9 x1.7 cm parafacine mass possibly a meningioma 03/07/18 MRI of brain with and without contrast: Predominately left sided parafalcine meningioma is observed along the inferior posterior falx cerebri. 2.3 cm x 1.8 cm x 2.1 cm. Posterior focal peritumoral edema is noted. ASSESSMENT/PLAN: Patient is a 47 year old male with significant PMHx of Alcohol abuse (binge drinking for 3 weeks) and urinary retention, came in to the ED complaining of chest pain and headache was found to have meningioma on CT. # Alcohol abuse On Libirum protocol, will finish the taper tomorrow. No signs of agitation or tremors. Continue Thiamine 250mg IV TID x 3 days Discussed in detail regarding inpatient vs outpatient detox. Patient states he will stop drinking alcohol and wants to do outpatient detox. Appreciate Dr. Pride's recommendations. # Newly diagnosed Meningioma Brain MRI done. Seen by neurologist and neurosurgeon. Needs f/up as outpatient. # Chest pain r/o ACS. Could be musculoskeletal (pain on palpation)- now resolved O.09---> 0.11---> 0.09--> 0.08 03/[address] or T wave changes. ECHO 12/17/18: Left ventricle is normal. No regional wall abnormalities, EF 65-70 %. Right vent systolic function normal. Pul systolic pressure 25 mmHg # UTI Urine cultures grew Group D strep or enterococcus. Pansensitive. Will continue IV Ceftriaxone. Sam discontinued. # Diarrhoea could be viral gastroenteritis Resolved. # Hypertriglyceridemia Due to Elevated lipase, will hold off the meds until discharge. Repeated TG and lipase downtrending. # Transaminitis LFT's trending down . Likely due to alcohol intake. Will repeat LFT's in AM it worsens, will get recommendations from GI. Hepatitis panel negative. HIV negative USG abdomen showed Hepatic steatosis and fatty liver # FEN Discontinued fluids, can tolerate PO Electrolytes: WNL. To be repeated in AM since his electrolytes has been abnormal since admission Cholesterol controlled diet # Prophylaxis For DVT: Heparin 5000 IU sq TID For GI: IV Protonix 40 mg Daily # Code Status: Full Code # Dispo: D/c home tomorrow. Illness, Investigation and Plan of care explained to the patient. He verbalized understanding. Case discussed with Dr. Llamas. Problem List - Problems (1) Alcohol withdrawal Code(s): F10.239 - ALCOHOL DEPENDENCE WITH WITHDRAWAL, UNSPECIFIED (2) Brain mass Code(s): G93.9 - DISORDER OF BRAIN, UNSPECIFIED (3) Chest pain Code(s): R07.9 - CHEST PAIN, UNSPECIFIED (4) Hypertriglyceridemia Code(s): E78.1 - PURE HYPERGLYCERIDEMIA (5) Elevated lipase Code(s): R74.8 - ABNORMAL LEVELS OF OTHER SERUM ENZYMES (6) EtOH dependence Code(s): F10.20 - ALCOHOL DEPENDENCE, UNCOMPLICATED (7) Transaminitis Code(s): R74.0 - NONSPEC ELEV OF LEVELS OF TRANSAMNS & LACTIC ACID DEHYDRGNSE (8) Urinary retention Code(s): R33.9 - RETENTION OF URINE, UNSPECIFIED Visit type - Emergency Visit Emergency Visit: Yes ED Registration Date: 03/06/18 Care time: The patient presented to the Emergency Department on the above date and was hospitalized for further evaluation of their emergent condition. - New Patient This patient is new to me today: No - Critical Care Critical Care patient: No - Discharge Referral Referred to [facility] No
[2018-03-09] MEDS ORDERED: FLU VACCINE QUAD 60 MCG/0.5 ML (MDV 18-19) IM ONE (15:06)
[2018-03-09] MEDS ORDERED: PNEUMOC 13-VAL CONJ-DIP CRM/PF 0.5 ML DISP.SYRIN IM ONE (15:06)
[2018-03-09] MEDS ORDERED: chlordiazePOXIDE HCL 25 MG CAPSULE PO PRN (15:52)
[2018-03-09] MEDS ORDERED: PNEUMOCOCCAL 23 VACCINE 0.5 ML VIAL IM ONE (16:00)
[2018-03-09] MEDS ORDERED: chlordiazePOXIDE 5 MG CAPSULE PO SCH (17:00)
[2018-03-10] MEDS: HEPARIN NA (PORCINE) 5,000 UNITS/ML 1ML VIAL SQ SCH (05:49)
[2018-03-10] MEDS: chlordiazePOXIDE 5 MG CAPSULE PO SCH (05:50)
[2018-03-10] MEDS ORDERED: TAMSULOSIN HCL 0.4 MG CAP PO SCH (08:30)
--- NOTE | 2018-03-10 09:13 | PN ---
Progress Note (short form) - Note Progress Note: [facility] *LIVE* Neuro History of Present Illness 47 yo M with a hx of alcoholism (endorses hx of withdrawals) and urinary retention presented to the emergency department with headache and chest pain. Per the patient, he was seen at [facility] for alcohol intoxication after having his last drink at 5pm the day prior. He was given "a pill that made me feel better" but denied he was worked up for the chest pain he was having. His chest pain ceased and then came back with concurrent severe headaches. He denied falling, however his female electrician office at bedside reportedly stated he could have fallen. CT head was completed and demonstrated left parafalx meningioma approximately 2 cm in size with some mild parameningeal edema per notes. Neurosurgery note reviewed, documented conversation with patient regarding intervention, medical stabilization would be needed if intervention pursued. NSGY note reviewed and plan is for outpatient mgmt/intervention. Patient is well-appearing this morning remains asymptomatic, asking about discharge again. No objection to this. Active Medications Chlordiazepoxide HCl (Librium -) 10 mg PO [id number] CLEMENTINA Stop: 03/10/18 11:01 Last Admin: 03/10/18 05:50 Dose: 10 mg Heparin Sodium (Porcine) (Heparin -) 5,[address] [facility] Last Admin: 03/10/18 05:49 Dose: 5,000 unit Ceftriaxone Sodium 1 gm/ (Dextrose) 100 mls @ 200 mls/hr IVPB DAILY [facility]; Protocol Pantoprazole Sodium (Protonix Iv) [address] [facility] Tamsulosin HCl (Flomax -) 0.4 mg PO DAILY@0830 [facility] *Physical Exam Vital Signs Temperature 98.2 F 03/10/18 06:00 Pulse Rate 82 03/10/18 06:00 Respiratory Rate 16 03/10/18 06:00 Blood Pressure 133/78 03/10/18 06:00 O2 Sat by Pulse Oximetry (%) 97 03/09/18 09:00 - Physical Exam General Appearance: Yes: Nourished, Appropriately Dressed, Disheveled, Alcohol on Breath. No: Apparent Distress HEENT: positive: EOMI, [place], Normal Voice, Symmetrical, Hearing Grossly Normal. negative: Pale Conjunctivae, Scleral Icterus (R), Scleral Icterus (L), Muffled /Hoarse voice, Excessive drooling Neck: positive: Trachea midline. negative: Tender Respiratory/Chest: positive: Lungs Clear, Normal Breath Sounds. negative: Chest Tender, Respiratory Distress, Accessory Muscle Use Cardiovascular: positive: Regular Rhythm, Regular Rate, S1, S2. negative: Systolic Murmur Gastrointestinal/Abdominal: positive: Normal Bowel Sounds, Tender (epigastric, periumbilical, RUQ), Flat, Soft. negative: Distended Male Genitalia: positive: other (catheter in place. urine is orange ) Lymphatic: negative: Adenopathy Musculoskeletal: positive: Normal Inspection. negative: CVA Tenderness Extremity: positive: Normal Capillary Refill, Normal Inspection, Normal Range of Motion. negative: Tender Integumentary: positive: Normal Color, Dry, Warm Neurologic: positive: top lift compressor II-XII NML intact, Alert, strength symmetric bilaterally, sensory intact bilaterally, finger to nose normal CBCD WBC 6.1 K/mm3 (4.0-10.0) 03/09/18 05:30 RBC 4.31 M/mm3 (4.00-5.60) 03/09/18 05:30 Hgb 12.0 GM/dL (11.7-16.9) 03/09/18 05:30 Hct 37.1 % (35.4-49) 03/09/18 05:30 MCV 86.2 fl (80-96) 03/09/18 05:30 MCHC 32.4 g/dl (32.0-35.9) 03/09/18 05:30 RDW 14.9 % (11.9-15.9) 03/09/18 05:30 Plt Count 127 K/MM3 (134-434) L 03/09/18 05:30 MPV 8.8 fl (7.5-11.1) 03/09/18 05:30 CMP Sodium 137 mmol/L (136-145) 03/09/18 05:30 Potassium 3.6 mmol/L (3.5-5.1) 03/09/18 05:30 Chloride 103 mmol/L (98-107) 03/09/18 05:30 Carbon Dioxide 28 mmol/L (21-32) 03/09/18 05:30 Anion Gap 6 MMOL/L (8-16) L 03/09/18 05:30 BUN 8 mg/dL (7-18) 03/09/18 05:30 Creatinine 0.6 mg/dL (0.55-1.3) 03/09/18 05:30 Creat Clearance w eGFR > 60 (>60) 03/09/18 05:30 Random Glucose 90 mg/dL (74-106) 03/09/18 05:30 Calcium 7.9 mg/dL (8.5-10.1) L 03/09/18 05:30 Total Bilirubin 1.8 mg/dL (0.2-1) H 03/09/18 05:30 AST 204 U/L (15-37) H 03/09/18 05:30 ALT 236 U/L (13-61) H 03/09/18 05:30 Alkaline Phosphatase 212 U/L (45-117) H 03/09/18 05:30 Total Protein 6.8 g/dl (6.4-8.2) 03/09/18 05:30 Albumin 3.1 g/dl (3.4-5.0) L 03/09/18 05:30 CARDIAC ENZYMES Creatine Kinase 381 IU/L (26-308) H 03/06/18 02:44 Troponin I 0.08 ng/ml (0.00-0.05) H 03/07/18 05:15 Medical Decision Making 47 yo M with a hx of alcoholism (endorses hx of withdrawals) and urinary retention presented to the emergency department with headache and chest pain. Per the patient, he was seen at [facility] for alcohol intoxication after having his last drink at 5pm the day prior. He was given "a pill that made me feel better" but denied he was worked up for the chest pain he was having. His chest pain ceased and then came back with concurrent severe headaches. He denied falling, however his female electrician office at bedside reportedly stated he could have fallen. CT head was completed and demonstrated left parafalx meningioma approximately 2 cm in size with some mild parameningeal edema per notes. NSGY note reviewed, planned for outpatient re-eval Does not require steroids at this time Headache improved Monitor blood pressure, maintain normotensive range Continue alcohol detox Maintain hydration Neurologically stable at this time
[2018-03-10] MEDS ORDERED: DEXTROSE 5%-WATER 100 ML IVPB ONE (09:55)
[2018-03-10] MEDS ORDERED: cefTRIAXone SODIUM 1 GM VIAL ONE (09:55)
[2018-03-10] MEDS ORDERED: CEFTRIAXONE 1 GM in DEXTROSE 5%-WATER 100 ML IVPB SCH (10:00)
[2018-03-10] MEDS ORDERED: PANTOPRAZOLE SODIUM 40 MG VIAL IVPUSH SCH (10:00)
[2018-03-10 11:20] LABS: HEMOGLOBIN 11.6 GM/dL (11.7-16.9); MCH 29.3 pg (25.7-33.7); MCHC 34.2 g/dl (32.0-35.9); MEAN CELL VOLUME 85.6 fl (80-96); MEAN PLT VOLUME 8.2 fl (7.5-11.1); PLATELET COUNT 153 K/MM3 (134-434); RBC 3.97 M/mm3 (4.00-5.60); RDW 15.3 % (11.9-15.9); WHITE BLOOD COUNT 6.5 K/mm3 (4.0-10.0)
[2018-03-10 11:44] LABS: ALK PHOS 200 U/L (45-117); ANION GAP 8 MMOL/L (8-16); BILIRUBIN,TOTAL 1.1 mg/dL (0.2-1); BLOOD UREA NITROGEN 10 mg/dL (7-18); CALCIUM 8.3 mg/dL (8.5-10.1); CHLORIDE 103 mmol/L (98-107); CO2 26 mmol/L (21-32); CREATININE 0.7 mg/dL (0.55-1.3); GLUCOSE,RANDOM 125 mg/dL (74-106); POTASSIUM 3.6 mmol/L (3.5-5.1); SGOT/AST 153 U/L (15-37); SGPT/ALT 202 U/L (13-61); SODIUM 138 mmol/L (136-145); TOT PROT 6.6 g/dl (6.4-8.2)
--- NOTE | 2018-03-10 14:13 | PN ---
Teaching Attending Note Name of Resident: Annemarie Karimi ATTENDING PHYSICIAN STATEMENT I saw and evaluated the patient. I reviewed the resident's note and discussed the case with the resident. I agree with the resident's findings and plan as documented. SUBJECTIVE: OBJECTIVE: Vital Signs Period Temp Pulse Resp BP Sys/Orr Pulse Ox Last 24 Hr 98.2 F-98.6 F 82-94 16-20 118-133/67-78 Laboratory Results - last 24 hr 03/10/18 03/10/18 10:28 10:28 WBC 6.5 RBC 3.97 L Hgb 11.6 L Hct 34.0 L MCV 85.6 MCH 29.3 MCHC 34.2 RDW 15.3 Plt Count 153 D MPV 8.2 Sodium 138 Potassium 3.6 Chloride 103 Carbon Dioxide 26 Anion Gap 8 BUN 10 Creatinine 0.7 Creat Clearance w eGFR > 60 Random Glucose 125 H Calcium 8.3 L Total Bilirubin 1.1 H AST 153 H ALT 202 H Alkaline Phosphatase 200 H Total Protein 6.6 Albumin 3.0 L Current Medications Generic Name Dose Route Start Last Admin Trade Name Freq PRN Reason Stop Dose Admin Heparin Sodium (Porcine) 5,000 unit 03/09/18 22:00 03/10/18 05:49 Heparin - SQ 5,000 unit TID CLEMENTINA Administration Ceftriaxone Sodium 1 gm/ 100 mls @ 200 mls/hr 03/10/18 10:00 03/10/18 10:12 Dextrose IVPB 200 mls/hr DAILY CLEMENTINA Administration Protocol Pantoprazole Sodium 40 mg 03/10/18 10:00 03/10/18 10:11 Protonix Iv IVPUSH 40 mg DAILY CLEMENTINA Administration Tamsulosin HCl 0.4 mg 03/10/18 08:30 03/10/18 10:12 Flomax - PO 0.4 mg DAILY@0830 CLEMENTINA Administration ASSESSMENT AND PLAN:
[2018-03-10 15:07] VITALS: BP 127/76; PULSE 108; TEMP 97.9
--- NOTE | 2018-03-10 17:29 | DS ---
Physical Exam: SUBJECTIVE: Patient seen and examined at bed side this morning. Feels good. Denies chest pain, sob, cough, palpitation, abdominal pain, nausea or vomiting. No acute overnight events. OBJECTIVE: Vital Signs Period Temp Pulse Resp BP Sys/Orr Pulse Ox Last 24 Hr 97.9 F-98.6 F 82-108 16-20 118-133/67-78 PHYSICAL EXAM GENERAL: Middle aged male, lying in bed, awake, alert, oriented x 3, in no acute distress. HEAD: Normal with no signs of trauma. EYES: EOM intact, no nystagmus, no pallor or icterus. ENT: Ears normal, moist mucous membranes. NECK: Supple, no JVD. LUNGS: Breath sounds equal, clear to auscultation bilaterally, no wheezes, no crackles, no accessory muscle use. HEART: Tachycardic, Regular rate and rhythm, S1, S2 without murmur. ABDOMEN: Soft, tenderness in the suprapubic area, nondistended, BS +, no guarding, no rebound, no hepatosplenomegaly, no masses. EXTREMITIES: 2+ pulses, warm, well-perfused, no edema. NEUROLOGICAL: No facial droop, power 5/5 in all extremities, sensation intact, Cranial nerves II through XII grossly intact. Normal speech, gait not observed, fine tremors in the extremities. PSYCH: Normal mood, normal affect. SKIN: Warm, dry, normal turgor, no rashes or lesions noted LABS Laboratory Results - last 24 hr 03/10/18 03/10/18 10:28 10:28 WBC 6.5 RBC 3.97 L Hgb 11.6 L Hct 34.0 L MCV 85.6 MCH 29.3 MCHC 34.2 RDW 15.3 Plt Count 153 D MPV 8.2 Sodium 138 Potassium 3.6 Chloride 103 Carbon Dioxide 26 Anion Gap 8 BUN 10 Creatinine 0.7 Creat Clearance w eGFR > 60 Random Glucose 125 H Calcium 8.3 L Total Bilirubin 1.1 H AST 153 H ALT 202 H Alkaline Phosphatase 200 H Total Protein 6.6 Albumin 3.0 L Microbiology 03/06/18 19:35 Urine - Urine Quintero Urine Culture - Final Enterococcus Faecalis HOSPITAL COURSE: Date of Admission:03/06/18 Date of Discharge: 03/10/18 03/06/[address] showed 2.3 x 1.9 x1.7 cm parafacine mass possibly a meningioma 03/07/18 MRI of brain with and without contrast: Predominately left sided parafalcine meningioma is observed along the inferior posterior falx cerebri. 2.3 cm x 1.8 cm x 2.1 cm. Posterior focal peritumoral edema is noted. ASSESSMENT/PLAN: Patient is a 47 year old male with significant PMHx of Alcohol abuse and urinary retention, came in to the ED complaining of chest pain and headache which started after his last drink a day prior. Patient had been binge drinking for 3 weeks, about 10 bottles of beer and a bottle of vodka a day. For the above symptoms went to [facility] [place] where he wasn't taken care of properly as per the patient, so came here to the ED for further evaluation. Previously came to [facility] ED on 03/02 for abd pain, CT a/p at that time showed hepatic steatosis and distended GB and LFTs were grossly elevated; also had quintero placed for urinary retention prior to d/c. This admission, patient was found to be in alcohol intoxication with alcohol level of 213. Was tachycardic, admitted in Tele monitoring with continuous cardiac monitoring (no events noted in tele monitor except tachycardia). Started on Librium protocol with good response, no signs of withdrawal. Consulted Dr. Pride who spoke with the patient regarding inpatient vs outpatient detox. Patient chose to go home and try detox as outpatient. For headache, CT head was done which showed a possible meningioma. Brain MRI was done which showed the same results. Neurology and Neurosurgery was consulted who recommended to f/up as outpatient to discuss further options of treatment. There was no focal neurological deficits. Since he was complaining of urinary retention, UA/UC was done which showed he had UTI (E. fecalis) griffith sensitive and was treated with IV Ceftriaxone for 5 days. ACS was ruled out; C. diff ruled out Patient had transaminitis which was trending down, most likely related to alcohol. Requested patient to f/up as outpatient and to repeat blood work. Also had high TG on admission 1149 which trended down to 316. Lipase trended down to 493 from 556. Patient was asymptomatic, no abdominal pain, nausea or vomiting. Recommended patient to limit his alcohol intake and to repeat blood work as outpatient. Patient is afebrile, hemodynamically stable and can be discharged home. Instructions have been given and explained. Plan of care explained to the patient. He verbalized understanding. Minutes to complete discharge: 45 Discharge Summary Reason For Visit: ALCOHOL WITHDRAWAL SYNDROME/MASS OF BRAIN Condition: Improved - Instructions Diet, Activity, Other Instructions: You were admitted for alcohol intoxication and librium protocol was started. We also discussed about inpatient vs outpatient detox and you preferred outpatient detox so we are discharging you home. Consume alcohol in moderation. Please make sure you f/up with Dr. Pride. CT Head was done which showed meningioma. Neurosurgery (Dr. Mancini) and Neurology (Dr. Lal) evaluated you who recommends to follow up as outpatient and further treatment will be discussed. You also need to repeat CT head in the future to see the growth of Meningioma. You are treated with IV Antibiotics for urinary tract infection and completed 5 day course. Please f/up with the primary doctor regarding Hypertriglyceridemia and elevated liver enzymes (it is still elevated but trending down). If your symptoms worsen or develop any new symptoms please come to the Emergency Department immediately. Referrals: Nick Hernández MD [Staff Physician] - 1 Week Sagar Tinajero MD, FAANS [Staff Physician] - 2 Weeks Shayne Lal MD [Staff Physician] - 2 Weeks Anastasia Pride DO [Staff Physician] - Disposition: HOME - Home Medications Comprehensive Discharge Medication List: Ambulatory Orders NK [No Known Home Medication] 03/02/18 Problem List - Problems (1) Alcohol withdrawal Code(s): F10.239 - ALCOHOL DEPENDENCE WITH WITHDRAWAL, UNSPECIFIED (2) Brain mass Code(s): G93.9 - DISORDER OF BRAIN, UNSPECIFIED (3) Chest pain Code(s): R07.9 - CHEST PAIN, UNSPECIFIED (4) Hypertriglyceridemia Code(s): E78.1 - PURE HYPERGLYCERIDEMIA (5) Elevated lipase Code(s): R74.8 - ABNORMAL LEVELS OF OTHER SERUM ENZYMES (6) EtOH dependence Code(s): F10.20 - ALCOHOL DEPENDENCE, UNCOMPLICATED (7) Transaminitis Code(s): R74.0 - NONSPEC ELEV OF LEVELS OF TRANSAMNS & LACTIC ACID DEHYDRGNSE (8) Urinary retention Code(s): R33.9 - RETENTION OF URINE, UNSPECIFIED This patient is new to me today: No Emergency Visit: Yes ED Registration Date: 03/06/18 Care time: The patient presented to the Emergency Department on the above date and was hospitalized for further evaluation of their emergent condition. Critical Care patient: No - Discharge Referral Referred to [facility] No
== END 2018-03-10 15:18 | disposition home or self-care (01) | DRG 775 ==
LOC: JER 01:44 → JERBED 05:48 → J4W 09:10 → JERBED 03-09 09:42 → J4W 03-09 09:43 → J6S 03-09 15:33
PROVIDERS: ADMIT Internal Medicine; ATTEND Internal Medicine
DX: F10.230 Alcohol dependence with withdrawal, uncomplicated (principal); E83.51 Hypocalcemia; N39.0 Urinary tract infection, site not specified; I24.8 Other forms of acute ischemic heart disease; F10.220 Alcohol dependence with intoxication, uncomplicated; G93.6 Cerebral edema; K76.0 Fatty (change of) liver, not elsewhere classified; R33.8 Other retention of urine; R73.9 Hyperglycemia, unspecified; E87.6 Hypokalemia; R51 Headache; D32.0 Benign neoplasm of cerebral meninges; E78.1 Pure hyperglyceridemia; R19.7 Diarrhea, unspecified; A08.4 Viral intestinal infection, unspecified; R74.0 Nonspecific elevation of levels of transaminase and lactic acid dehydrogenase [LDH]; B95.2 Enterococcus as the cause of diseases classified elsewhere; Y90.7 Blood alcohol level of 200-239 mg/100 ml; R00.0 Tachycardia, unspecified
CPT/HCPCS: 36415; 70450-TC; 70553-TC; 71045-TC-FY; 76700-TC; 80048; 80053; 80061; 80074; 80307; 81003; 81015; 82272; 82330; 82550; 82553; 82962; 83036; 83690; 83721; 83735; 84100; 84153; 84443; 84478; 84484; 85025; 85027; 85610; 85651; 85730; 86140; 87086; 87186; 87389; 90688; 90732; 93005; 93010; 93306-TC; 97116-GP; 97161-GP; 99285-25; G0008; G0009; J1644; J7030

== ENCOUNTER 2018-10-27 08:42 | Emergency (ER) | payer OTHER | END 2018-10-27 14:03 | disposition home or self-care (01) | LOC: JER 08:42 ==

== ENCOUNTER 2019-02-12 19:57 | Inpatient (IN) | payer SELFPAY ==
--- NOTE | 2019-02-12 20:02 | PDOC ---
Rapid Medical Evaluation Chief Complaint: Pain Time Seen by Provider: 02/12/19 20:01 Medical Evaluation: Allergies Allergy/AdvReac Type Severity Reaction Status Date / Time No Known Allergies Allergy Verified 10/27/18 08:47 02/12/19 20:02 I have performed a brief in-person evaluation of this patient. The patient presents with a chief complaint of: alcohol use, abd pain, vomiting blood Pertinent physical exam findings:stable and in NAD, non-focal I have ordered the following: labs The patient will proceed to the ED for further evaluation. 02/12/19 20:04
[2019-02-12 20:06] VITALS: BMI 29.9
--- NOTE | 2019-02-12 21:33 | PDOC ---
Attending Attestation - Resident Resident Name: Bety Pascual - ED Attending Attestation I have performed the following: I have examined & evaluated the patient, The case was reviewed & discussed with the resident, I agree w/resident's findings & plan - HPI HPI: 02/13/19 01:43 see resident hpi - Physicial Exam PE: 02/13/19 01:43 agree with resident exam - Critical Care Time Total Critical Care Time: 60 Critical Care Statement: The care of this patient involved high complexity decision making to prevent further life threatening deterioration of the patient 's condition and/or to evaluate & treat vital organ system(s) failure or risk of failure. - Medical Decision Making 02/13/19 01:43 59-year-old male with history of alcohol abuse complaining of vomiting CT scan of the brain shows a frontal mass, possibly meningioma though with areas of vasoactive edema CT scan of the abdomen and pelvis consistent with acute pancreatitis with probable pancreatic necrosis with no identifiable cyst Patient given IV fluids, vitamin replacement Case discussed with on-call neurosurgery who will manage CT brain findings in- house Patient will be admitted to medical service for further management of his alcohol dependence and acute pancreatitis
[2019-02-12 21:44] LABS: BASO % 0.3 % (0-2.0); HEMATOCRIT 39.8 % (35.4-49); HEMOGLOBIN 13.2 GM/dL (11.7-16.9); LYMPH % 6.3 % (8-40); MCH 28.8 pg (25.7-33.7); MCHC 33.3 g/dl (32.0-35.9); MEAN CELL VOLUME 86.6 fl (80-96); MEAN PLT VOLUME 8.9 fl (7.5-11.1); NEUT % 90.4 % (42.8-82.8); PLATELET COUNT 90 K/MM3 (134-434); RDW 15.4 % (11.9-15.9); VENOUS PC02 28.2 mmHg (38-52); VENOUS PH 7.47 (7.31-7.41); WHITE BLOOD COUNT 19.8 K/mm3 (4.0-10.0)
[2019-02-12 22:16] LABS: ALBUMIN 2.9 g/dl (3.4-5.0); BILIRUBIN,TOTAL 9.9 mg/dL (0.2-1); BLOOD UREA NITROGEN 7.4 mg/dL (7-18); CREATININE 0.8 mg/dL (0.55-1.3); POTASSIUM 3.8 mmol/L (3.5-5.1); TOT PROT 6.8 g/dl (6.4-8.2)
[2019-02-12 22:30] LABS: EPI CELLS 0.5 /HPF (0-5/HPF); HYALINE CASTS 12 /lpf (0-8); PH,URINE 5.5 (5.0-8.0); URINE APPEARANCE CLOUDY; URINE BACTERIA 0.5 /hpf (NEGATIVE); URINE BILIRUBIN 3+ (NEGATIVE); URINE COLOR DK YELLOW; URINE GLUCOSE (UA) NEGATIVE (NEGATIVE); URINE KETONE NEGATIVE (NEGATIVE); URINE LEUK ESTERASE TRACE (NEGATIVE); URINE NITRITE POSITIVE (NEGATIVE); URINE PROTEIN 1+ (NEGATIVE); URINE RBC 1 /hpf (0-4); URINE WBC 1 /hpf (0-5)
[2019-02-12] MEDS ORDERED: FOLIC ACID INJECTION - 1 MG, THIAMINE HCL 100 MG, MULTIVIT INJECTION ADULT 10 ML in SOD... IVPB ONE (22:42)
[2019-02-12 22:46] LABS: URINE CRYSTALS NONE SEEN /hpf
--- NOTE | 2019-02-12 22:55 | PDOC ---
History of Present Illness - General Chief Complaint: Vomiting Blood Stated Complaint: ABDOMINAL PAIN Time Seen by Provider: 02/12/19 20:01 - History of Present Illness Initial Comments: HPI: 59yo M with alcohol abuse and liver disease presenting with abdominal pain. Has had this pain before when "he drinks a lot." Patient states he has had significant nausea and vomiting x 4 days. Reports about a teaspoon of blood in the vomit today. Has seen blood in his vomit before when he "drinks a lot." Never seen a GI doctor or had a colonoscopy/endoscopy. Last bowel movement was this morning and a was a dark brown loose stool without blood. Reports a history of significant alcohol drinking and is requesting detox. Last drank alcohol yesterday, 9 beers, last yesterday. Has had poor po intake. Reports chills and subjective fever. Also complaining of a headache. History limited as patient is a poor historian. PCP: follows with [place] ROS: Constitutional: +fever, +chills HEENT: no throat pain, no dysphagia Cardiovascular: no chest pain, no palpitations Respiratory: no cough, no shortness of breath Gastrointestinal: +abdominal pain, +vomiting Genitourinary: no dysuria, no hematuria Musculoskeletal: no myalgia, no arthralgia Skin: no rash, no itching Neurologic: +headache, no syncope PE: General: Awake, alert, and fully oriented, in no acute distress Head: No signs of trauma Eyes: EOMI, sclera icteric ENT: Dry mucus membranes, breath smells fruity Neck: Normal ROM, supple Lungs: Lungs clear, Normal breath sounds Cardio: Regular rhythm, S1 and S2 present Abdomen: Tender to palpation periumbilical/LLQ area. Soft, distended. No guarding, no rebound, no masses. No CVA tenderness. Extremities: Normal range of motion, Distal pulses present SKIN: Warm, Dry, normal turgor Neurologic: Cranial nerves II through XII grossly intact. Normal speech ED Course/MDM: DDX including but not limited to hepatobiliary disease, pancreatitis, pneumonia , UTI VS significant for tachycardia Fluids Zofran EKG: rate 106, QTc 454, tachycardia, NSR CBC WBC 19.8 K/mm3 (4.0-10.0) H 02/12/19 21:26 RBC 4.60 M/mm3 (4.00-5.60) 02/12/19 21: Hgb 13.2 GM/dL (11.7-16.9) 02/12/19 21: Hct 39.8 % (35.4-49) 02/12/19 21: MCV 86.6 fl (80-96) 02/12/19 21: MCH 28.8 pg (25.7-33.7) 02/12/19 21: MCHC 33.3 g/dl (32.0-35.9) 02/12/19 21: RDW 15.4 % (11.9-15.9) 02/12/19 21: Plt Count 90 K/MM3 (134-434) L 02/12/19 21: MPV 8.9 fl (7.5-11.1) D 02/12/19 21: Absolute Neuts (auto) 17.9 K/mm3 (1.5-8.0) H 02/12/19 21: Neutrophils % 90.4 % (42.8-82.8) H 02/12/19 21: Lymphocytes % 6.3 % (8-40) L 02/12/19 21: Monocytes % 3.0 % (3.8-10.2) L 02/12/19 21: Eosinophils % 0.0 % (0-4.5) 02/12/19 21: Basophils % 0.3 % (0-2.0) 02/12/19 21: Nucleated RBC % 0 % (0-0) 02/12/19 21: Leukocytosis CMP Sodium 121 mmol/L (136-145) L 02/12/19 21: Potassium 3.8 mmol/L (3.5-5.1) 02/12/19 21: Chloride 87 mmol/L (98-107) L 02/12/19 21: Carbon Dioxide 20 mmol/L (21-32) L 02/12/19 21: Anion Gap 13 MMOL/L (8-16) 02/12/19 21:26 BUN 7.4 mg/dL (7-18) 02/12/19 21: Creatinine 0.8 mg/dL (0.55-1.3) 02/12/19 21: Est GFR (CKD-EPI)AfAm 114.13 02/12/19 21:26 Est GFR (CKD-EPI)NonAf 98.47 02/12/19 21:26 POC Glucometer 139 UNITS (80-120) 02/12/19 21:45 Random Glucose 124 mg/dL (74-106) H 02/12/19 21:26 Lactic Acid 5.1 mmol/L (0.4-2.0) H* 02/12/19 21: Calcium 7.0 mg/dL (8.5-10.1) L 02/12/19 21: Total Bilirubin 9.9 mg/dL (0.2-1) H 02/12/19 21: AST 404 U/L (15-37) H 02/12/19 21: ALT 238 U/L (13-61) H 02/12/19 21: Alkaline Phosphatase 337 U/L (45-117) H 02/12/19 21: Ammonia 24.90 umol/L (11-32) 02/12/19 22:17 Troponin I 0.05 ng/ml (0.00-0.05) 02/12/19 21: Total Protein 6.8 g/dl (6.4-8.2) 02/12/19 21: Albumin 2.9 g/dl (3.4-5.0) L 02/12/19 21: Lipase 982 U/L (73-393) H 02/12/19 21:26 Hyponatremia Cr normal Patient with elev lactate, further fluids given Tpn normal Lipase elevated Elev tbili Transaminitis Decision made to order imaging, CT AP and chest with contrast, CT head, RUQ US 02/12/19 22:54 At imaging; pending CT and US reports 02/12/19 23:36 CTAP, as read by imaging non destructive evaluation technician: "EXAM: CT ABDOMEN AND PELVIS WITH CONTRAST Peripancreatic fat stranding, consistent with acute pancreatitis. Hypodensity in pancreatic tail region may represent pancreatic necrosis. No organized pseudocyst. Hepatomegaly and steatosis. Dilated gallbladder, which can be seen with fasting state. Gallbladder sludge. No bowel obstruction or inflammation. No free fluid or free air. No evidence for appendicitis. Unremarkable spleen, stomach, kidneys. One or more of the following dose reduction techniques were used: automated exposure control, adjustment of the mA and/or kV according to patient size, use of iterative reconstructive technique." CT Head, as read by imaging non destructive evaluation technician: "FINDINGS: 1. There is 2.5 cm mass within the left paracentral frontal lobe, may be extra- axial and may represent a meningioma. There is small amount of vasogenic edema/mass effect. This can be further evaluated with MRI of the brain without and with intravenous contrast. 2. Otherwise, no acute intracranial hemorrhage, extra-axial fluid collection, or acute territorial infarction demonstrated. 3. Mild sinus disease." Pending US report and CT Chest 02/13/19 01:09 RUQ US, as read by imaging non destructive evaluation technician: "FINDINGS: Right upper quadrant ultrasound: The liver is fatty and enlarged up to 19.1 cm, without mass or biliary duct dilation. The gallbladder is normal. The CBD is not dilated and measures5 millimeters in diameter. Right kidney measures 11.4centimeters in length and is unremarkable. Pancreas aorta and IVC are obscured. Trace perihepatic fluid is noted. Abdominal duplex: The main portal vein demonstrate normal hepatopedal flow. IMPRESSION: Enlarged fatty liver." Discussed case with Dr. Flores, neurosurgeon. No acute neurosurgical intervention until pancreatitis is taken care of. Patient can receive seizure prophylaxis with keppra. Dr. Flores will evaluate the patient and at that time determine if steroids are warranted. Pending CT Chest report 02/13/19 01:37 CT Chest: "FINDINGS: There is no aortic dissection or aneurysm. There is no significant mediastinal or hilar adenopathy. The heart size is normal. The trachea and bronchi are patent. There is no pericardial effusion. There is a small left pleural effusion with left lower lobe atelectasis, less likely pneumonia. Liver is fatty. There is peripancreatic inflammation indicating acute pancreatitis with possible necrosis of the pancreatic tail. Small amount of free fluid is noted. IMPRESSION: Small left pleural effusion with left lower lobe atelectasis, less likely pneumonia. Pancreatitis with possible necrosis of the pancreatic is better evaluated on the current CT abdomen and pelvis. Fatty liver." 02/13/19 01:56 Plan for admission for acute pancreatitis as patient has abdominal pain and serum lipase greater than 3 times the upper limit of normal, as well as imaging findings showing pancreatic necrosis MB sent; awaiting callback 02/13/19 02:[address] Avila who accepted patient for telemetry admission under Dr. Levin 02/13/19 02:36 Past History - Past Medical History Allergies/Adverse Reactions: Allergies Allergy/AdvReac Type Severity Reaction Status Date / Time No Known Allergies Allergy Verified 02/12/19 20:06 Home Medications: Ambulatory Orders Sulfamethoxazole/Trimethoprim [Bactrim Ds -] 1 tab PO BID #14 tablet 10/27/18 COPD: No Disorders: Yes (urinary retention) - Immunization History Immunization Up to Date: Yes - Psycho Social/Smoking Cessation Hx Smoking History: Never smoked Have you smoked in the past 12 months: No Information on smoking cessation initiated: No Hx Alcohol Use: Yes Drug/Substance Use Hx: No Substance Use Type: None, Alcohol Hx Substance Use Treatment: No *Physical Exam - Vital Signs Last Vital Signs Temp Pulse Resp BP Pulse Ox 99.9 F H 109 H 22 H 126/86 97 02/12/19 20:03 02/12/19 21:48 02/12/19 21:48 02/12/19 21:48 02/12/19 21:48 ED Treatment Course - LABORATORY CBC & Chemistry Diagram: 02/12/19 21:26 02/12/19 21:26 - ADDITIONAL ORDERS Additional order review: Laboratory Results 02/12/19 02/12/19 02/12/19 22:17 22:17 21:45 VBG pH POC VBG pCO2 POC VBG pO2 VBG HCO3 VBG O2 Sat (Araceli) VBG Base Excess Sodium Potassium Chloride Carbon Dioxide Anion Gap BUN Creatinine Est GFR (CKD-EPI)AfAm Est GFR (CKD-EPI)NonAf POC Glucometer 139 Random Glucose Lactic Acid Calcium Total Bilirubin AST ALT Alkaline Phosphatase Ammonia 24.90 Troponin I Total Protein Albumin Lipase Urine Color Urine Appearance Urine pH Ur Specific [place] Urine Protein Urine Glucose (UA) Urine Ketones Urine Blood Urine Nitrite Urine Bilirubin Urine Urobilinogen Ur Leukocyte Esterase Urine WBC (Auto) Urine RBC (Auto) Urine Casts (Auto) U Pathogenic Cast Auto U Epithel Cells (Auto) Urine Crystals (Auto) Urine Bacteria (Auto) Stool Occult Blood Negative Alcohol, Quantitative Blood Type Antibody Screen 02/12/19 02/12/19 02/12/19 21:26 21:26 21:26 VBG pH 7.47 H POC VBG pCO2 28.2 L POC VBG pO2 73.0 H VBG HCO3 20.3 L VBG O2 Sat (Araceli) 93.4 H VBG Base Excess -1.8 Sodium Potassium Chloride Carbon Dioxide Anion Gap BUN Creatinine Est GFR (CKD-EPI)AfAm Est GFR (CKD-EPI)NonAf POC Glucometer Random Glucose Lactic Acid Calcium Total Bilirubin AST ALT Alkaline Phosphatase Ammonia Troponin I Total Protein Albumin Lipase Urine Color Dk yellow Urine Appearance Cloudy Urine pH 5.5 D Ur Specific [place] 1.022 Urine Protein 1+ H Urine Glucose (UA) Negative Urine Ketones Negative Urine Blood 2+ H Urine Nitrite Positive H Urine Bilirubin 3+ H Urine Urobilinogen 1.0 Ur Leukocyte Esterase Trace Urine WBC (Auto) 1 Urine RBC (Auto) 1 Urine Casts (Auto) 12 U Pathogenic Cast Auto 3-5 U Epithel Cells (Auto) 0.5 Urine Crystals (Auto) None seen Urine Bacteria (Auto) 0.5 Stool Occult Blood Alcohol, Quantitative Blood Type O POSITIVE Antibody Screen Negative 02/12/19 02/12/19 21:26 21:26 VBG pH POC VBG pCO2 POC VBG pO2 VBG HCO3 VBG O2 Sat (Araceli) VBG Base Excess Sodium 121 L Potassium 3.8 Chloride 87 L Carbon Dioxide 20 L Anion Gap 13 BUN 7.4 Creatinine 0.8 Est GFR (CKD-EPI)AfAm 114.13 Est GFR (CKD-EPI)NonAf 98.47 POC Glucometer Random Glucose 124 H Lactic Acid 5.1 H* Calcium 7.0 L Total Bilirubin 9.9 H AST 404 H ALT 238 H Alkaline Phosphatase 337 H Ammonia Troponin I 0.05 Total Protein 6.8 Albumin 2.9 L Lipase 982 H Urine Color Urine Appearance Urine pH Ur Specific [place] Urine Protein Urine Glucose (UA) Urine Ketones Urine Blood Urine Nitrite Urine Bilirubin Urine Urobilinogen Ur Leukocyte Esterase Urine WBC (Auto) Urine RBC (Auto) Urine Casts (Auto) U Pathogenic Cast Auto U Epithel Cells (Auto) Urine Crystals (Auto) Urine Bacteria (Auto) Stool Occult Blood Alcohol, Quantitative 317.8 H Blood Type Antibody Screen 02/12/19 02/12/19 21:45 21:26 RBC 4.60 MCV 86.6 MCHC 33.3 RDW 15.4 MPV 8.9 D Neutrophils % 90.4 H Lymphocytes % 6.3 L Monocytes % 3.0 L Eosinophils % 0.0 Basophils % 0.3 POC Glucometer 139 - RADIOLOGY Radiology Studies Ordered: Category Date Time Status ABDOMEN & PELVIS CT WITH CONTR [CT] Stat CT Scan 02/12/19 22:[address] WITH CONTRAST [CT] Stat CT Scan 02/12/19 22:[address] WITHOUT CONTRAST [CT] Stat CT Scan 02/12/19 22:49 Ordered ABDOMEN US -LIMITED [US] Stat Ultrasound 02/12/19 22:52 Ordered Discharge - Discharge Information Problems reviewed: Yes Clinical Impression/Diagnosis: Transaminitis, Brain mass Acute pancreatitis Qualifiers: Pancreatitis type: alcohol induced Acute pancreatitis complication: infected necrosis Qualified Code(s): K85.22 - Alcohol induced acute pancreatitis with infected necrosis - Admission Yes - Follow up/Referral - Patient Discharge Instructions - Post Discharge Activity
[2019-02-12] MEDS ORDERED: ONDANSETRON 4 MG/2 ML VIAL IVPUSH ONE (23:51)
[2019-02-12] MEDS ORDERED: morphine CARPU-JECT 2 MG/1 ML DISP.SYRIN IVPUSH ONE (23:53)
[2019-02-13] MEDS ORDERED: MORPHINE SULFATE 2 MG/ML VIAL ONE (00:38)
[2019-02-13] MEDS ORDERED: ONDANSETRON 4 MG/2 ML VIAL ONE (00:39)
[2019-02-13] MEDS ORDERED: morphine CARPU-JECT 4 MG/1 ML DISP.SYRIN IVPUSH ONE (01:55)
--- NOTE | 2019-02-13 02:32 | PN ---
Teaching Attending Note Name of Resident: Raul Zheng ATTENDING PHYSICIAN STATEMENT I saw and evaluated the patient. I reviewed the resident's note and discussed the case with the resident. I agree with the resident's findings and plan as documented. SUBJECTIVE: Patient is a 59 year old man with PMH of Alcohol abuse and Liver disease presenting with abdominal pain. Has had this pain before when "he drinks a lot. " Patient states he has had significant nausea and vomiting x 4 days. Reports about a teaspoon of blood in the vomit today. Has seen blood in his vomit before when he "drinks a lot." Never seen a GI doctor or had a colonoscopy/ endoscopy. Last bowel movement was this morning and a was a dark brown loose stool without blood. Reports a history of significant alcohol drinking and is requesting detox. Last drank alcohol yesterday (9 beers). Has had poor oral intake. Reports chills and subjective fever. Also complaining of a headache. Denies dysphagia, chest pain, palpitations, cough, shortness of breath, dysuria or hematuria. OBJECTIVE: Alert Vital Signs Period Temp Pulse Resp BP Sys/Orr Pulse Ox Last 24 Hr 99.9 F 102-125 19-22 118-132/79-86 95-100 HEENT: No Jaundice, eye redness or discharge, PERRLA, EOMI. Normocephalic, atraumatic. External ears are normal and hearing is grossly intact. No nasal discharge. Neck: Supple, nontender. No palpable adenopathy or thyromegaly. No JVD Chest: Good effort. Clear to auscultation and percussion. Heart: Regular. No S3, rub or murmur Abdomen: Distended, soft, and periumblical tenderness and no HSM. No rebound or guarding. Normal bowel sounds. Ext: Peripheral pulses intact. No leg edema. Skin: Warm and dry. No petechiae, rash or ecchymosis. Neuro: Alert. Oriented x3. CN 2-12 grossly intact. Sensation grossly intact in all four extremities and DTR are symmetric. Psych: Appropriate mood and affect. Good insight. Current Medications Generic Name Dose Route Start Last Admin Trade Name Freq PRN Reason Stop Dose Admin Folic Acid 1 mg/ Thiamine HCl 1,000 mls @ 125 mls/hr 02/12/19 22:42 02/13/19 00:37 100 mg/ Multivitamins/Minerals IVPB 02/13/19 06:41 125 mls/hr 10 ml/ Sodium Chloride ONCE ONE Administration Home Medications Medication Instructions Recorded Sulfamethoxazole/Trimethoprim 1 tab PO BID #14 tablet 10/27/18 [Bactrim Ds -] Abnormal Lab Results 02/12/19 02/12/19 02/12/19 21:26 21:26 21:26 WBC 19.8 H Plt Count 90 L Absolute Neuts (auto) 17.9 H Neutrophils % 90.4 H Lymphocytes % 6.3 L Monocytes % 3.0 L VBG pH POC VBG pCO2 POC VBG pO2 VBG HCO3 VBG O2 Sat (Araceli) Sodium 121 L Chloride 87 L Carbon Dioxide 20 L Random Glucose 124 H Lactic Acid 5.1 H* Calcium 7.0 L Total Bilirubin 9.9 H AST 404 H ALT 238 H Alkaline Phosphatase 337 H Albumin 2.9 L Lipase 982 H Urine Protein Urine Blood Urine Nitrite Urine Bilirubin Alcohol, Quantitative 317.8 H 02/12/19 02/12/19 21:26 21:26 WBC Plt Count Absolute Neuts (auto) Neutrophils % Lymphocytes % Monocytes % VBG pH 7.47 H POC VBG pCO2 28.2 L POC VBG pO2 73.0 H VBG HCO3 20.3 L VBG O2 Sat (Araceli) 93.4 H Sodium Chloride Carbon Dioxide Random Glucose Lactic Acid Calcium Total Bilirubin AST ALT Alkaline Phosphatase Albumin Lipase Urine Protein 1+ H Urine Blood 2+ H Urine Nitrite Positive H Urine Bilirubin 3+ H Alcohol, Quantitative ASSESSMENT AND PLAN: 1. Acute pancreatitis/Brain mass/Alcohol intoxication/?GI bleeding - CT scan of the brain shows a frontal mass, possibly meningioma though with areas of vasoactive edema. CT scan of abdomen/pelvis consistent with acute pancreatitis with probable pancreatic necrosis with no identifiable cyst. CT scan of chest shows small left pleural effusion with left lower lobe atelectasis, less likely pneumonia. ER staff discussed with on-call neurosurgery who will manage CT brain findings in-house. Will treat with Keppra and decadron. Since pancreatic necrosis may be infected, will give IV Levofloxacin and Flagyl. Consult ID and GI. Bloody vomitus may signal Varsha bryant tear or variceal bleeding. Will treat with IV protonix and monitor HCT. Elevated LFTs suggest chronic alcoholic liver disease - will trend LFTs and avoid factors that precipitate hepatic encephalopathy. Hyponatremia likely due to alcohol abuse and vomiting - will get urine sodium and osmolarity, treat with IV LR and monitor sodium q 6hours to avoid a rapid rise in serum sodium. Will treat with banana bag. Implement [facility] librium alcohol withdrawal protocol and do neurochecks. Implement seizure, fall and aspiration precautions. Treat with thiamine and folic acid and monitor electrolytes (Ca,Mg,K,P). Counseled patient about abstaining from alcohol. Will consult mission assessment specialist and refer to alcohol detox upon discharge. Will continue comprehensive care for all of patients comorbid conditions. 2. Hypoalbuminemia - Possibly due to combined effects of proteinuria, malnutrition and inflammation associated with comorbid chronic conditions. Will ensure adequate dietary protein intake and also consult manager inventory control. 3. Obesity Counseled on the risks associated with obesity. Will provide patient all the necessary assistance, counseling and positive reinforcement to facilitate weight loss. Consult manager inventory control. 4. DVT prophylaxis - SCD 5. Advance directives - Full code
[2019-02-13] MEDS ORDERED: levETIRAcetam 500 MG/5 ML INJECTION VIAL IVPB ONE (02:40)
[2019-02-13] MEDS ORDERED: SODIUM CHLORIDE 1,000 ML IV STA (02:45)
[2019-02-13] MEDS ORDERED: SODIUM CHLORIDE 1,000 ML IV SCH (03:00)
--- NOTE | 2019-02-13 05:03 | HP ---
CHIEF COMPLAINT: Abdominal pain PCP: PCP in clinic in [place] HISTORY OF PRESENT ILLNESS: This is a 59 y/o surinamese speaking M with a PMHx of ETOH abuse, chronic live dx presenting to the ED with his girlfriend after having severe abdominal pain radiating to his back ass with nausea, vomiting, and hematochezia associated diarrhea X 4 days. Pt notes having a tea spoon of hematemesis in recent past and usually occurs with excessive alcohol intake. Pt admits to being a binge drinker, wherein that he will drink for weeks and then stop. He has not seen a GI physician. Pt last drank ETOH yesterday consisting of 9 beers and a shot of tequila and decreased po intake for the past 2 days due to poor appetite. Pt endorses a 20 yr binge drinking history. Furthermore, pt endorses having a headache and tremors not associated with light or stiffness of his neck. He describes having episodes similar to seizures including shaking but not associated with postictal amnesia.Pt denies any cp, sob, constipation, chills, recent sick contacts. ER course was notable for: (1) WBC- 19.8, L.A.- 5.1, Trop 0.05, glu-124, Lipase- 982, albumin- 2.9 (2) PLT'S- 90, AST/ALT- 404/238, ALP- 337, T bili- 9.9, UA tox + ETOH (3)CA- 7.9 corrected, Na- 121, UA- 2+ blood, no rbc's, 1+protein, positive nitrite, 3+bili, trace leuk est, +nitrites Images: CTAP- Peripancreatic fat stranding, consistent with acute pancreatitis. Hypodensity in pancreatic tail region may represent pancreatic necrosis. No organized pseudocyst. Hepatomegaly and steatosis. Dilated gallbladder, which can be seen with fasting state. Gallbladder sludge. No bowel obstruction or inflammation. No free fluid or free air. No evidence for appendicitis. Unremarkable spleen, stomach, kidneys. One or more of the following dose reduction techniques were used: automated exposure control, adjustment of the mA and/or kV according to patient size, use of iterative reconstructive technique." CT Head: 1. There is 2.5 cm mass within the left paracentral frontal lobe, may be extra- axial and may represent a meningioma. There is small amount of vasogenic edema/mass effect. This can be further evaluated with MRI of the brain without and with intravenous contrast. 2. Otherwise, no acute intracranial hemorrhage, extra-axial fluid collection, or acute territorial infarction demonstrated. 3. Mild sinus disease." Recent Travel: denies Social History: Smoking: denies Alcohol: Drugs: denies Allergies No Known Allergies Allergy (Verified 02/12/19 20:06) HOME MEDICATIONS: Home Medications Medication Instructions Recorded Sulfamethoxazole/Trimethoprim 1 tab PO BID #14 tablet 10/27/18 [Bactrim Ds -] REVIEW OF SYSTEMS negative except for HPI positives. PHYSICAL EXAMINATION Vital Signs - 24 hr 02/12/19 02/12/19 02/13/19 20:03 21:48 00:25 Temperature 99.9 F H Pulse Rate 125 H Pulse Rate [ 109 H 102 H Left] Respiratory 22 H 22 H 19 Rate Blood Pressure 118/79 Blood Pressure 126/86 128/81 [Left Arm] O2 Sat by Pulse 100 97 95 Oximetry (%) 02/13/19 02/13/19 02:10 04:02 Temperature Pulse Rate Pulse Rate [ 105 H 109 H Left] Respiratory 20 20 Rate Blood Pressure Blood Pressure 132/80 137/80 [Left Arm] O2 Sat by Pulse 97 98 Oximetry (%) GENERAL: Awake, alert, and fully oriented, in moderate distress EYES: sclera icteric. No lid lag. LUNGS: Breath sounds decreased b/l with poor air entry that improved after I performed Chest PT. No wheezes, minimal crackles at bases. No accessory muscle use. HEART: tachy in regular rhythm, normal S1 and S2 without murmur, rub or gallop. ABDOMEN: distended moderately, ttp of midepigastrium with rad to back, negative cullens/sow turners sign, normoactive bowel sounds, increased guarding and rebound ttp of midepigastrium LOWER EXTREMITIES: 2+ pulses, warm, well-perfused. No calf tenderness. No peripheral edema. NEUROLOGICAL: Cranial nerves II-XII intact. Normal speech. PSYCHIATRIC: Cooperative. Good eye contact. CIWA 18 SKIN: Warm, dry, normal turgor, no rashes or lesions noted, jaundice of skin Laboratory Results - last 24 hr 02/12/19 02/12/19 02/12/19 21:26 21:26 21:26 WBC 19.8 H RBC 4.60 Hgb 13.2 Hct 39.8 MCV 86.6 MCH 28.8 MCHC 33.3 RDW 15.4 Plt Count 90 L MPV 8.9 D Absolute Neuts (auto) 17.9 H Neutrophils % 90.4 H Lymphocytes % 6.3 L Monocytes % 3.0 L Eosinophils % 0.0 Basophils % 0.3 Nucleated RBC % 0 VBG pH POC VBG pCO2 POC VBG pO2 VBG HCO3 VBG O2 Sat (Araceli) VBG Base Excess Sodium 121 L Potassium 3.8 Chloride 87 L Carbon Dioxide 20 L Anion Gap 13 BUN 7.4 Creatinine 0.8 Est GFR (CKD-EPI)AfAm 114.13 Est GFR (CKD-EPI)NonAf 98.47 POC Glucometer Random Glucose 124 H Lactic Acid 5.1 H* Calcium 7.0 L Total Bilirubin 9.9 H AST 404 H ALT 238 H Alkaline Phosphatase 337 H Ammonia Troponin I 0.05 Total Protein 6.8 Albumin 2.9 L Lipase 982 H Urine Color Urine Appearance Urine pH Ur Specific [place] Urine Protein Urine Glucose (UA) Urine Ketones Urine Blood Urine Nitrite Urine Bilirubin Urine Urobilinogen Ur Leukocyte Esterase Urine WBC (Auto) Urine RBC (Auto) Urine Casts (Auto) U Pathogenic Cast Auto U Epithel Cells (Auto) Urine Crystals (Auto) Urine Bacteria (Auto) Stool Occult Blood Alcohol, Quantitative 317.8 H Blood Type Antibody Screen 02/12/19 02/12/19 02/12/19 21:26 21:26 21:26 WBC RBC Hgb Hct MCV MCH MCHC RDW Plt Count MPV Absolute Neuts (auto) Neutrophils % Lymphocytes % Monocytes % Eosinophils % Basophils % Nucleated RBC % VBG pH 7.47 H POC VBG pCO2 28.2 L POC VBG pO2 73.0 H VBG HCO3 20.3 L VBG O2 Sat (Araceli) 93.4 H VBG Base Excess -1.8 Sodium Potassium Chloride Carbon Dioxide Anion Gap BUN Creatinine Est GFR (CKD-EPI)AfAm Est GFR (CKD-EPI)NonAf POC Glucometer Random Glucose Lactic Acid Calcium Total Bilirubin AST ALT Alkaline Phosphatase Ammonia Troponin I Total Protein Albumin Lipase Urine Color Dk yellow Urine Appearance Cloudy Urine pH 5.5 D Ur Specific [place] 1.022 Urine Protein 1+ H Urine Glucose (UA) Negative Urine Ketones Negative Urine Blood 2+ H Urine Nitrite Positive H Urine Bilirubin 3+ H Urine Urobilinogen 1.0 Ur Leukocyte Esterase Trace Urine WBC (Auto) 1 Urine RBC (Auto) 1 Urine Casts (Auto) 12 U Pathogenic Cast Auto 3-5 U Epithel Cells (Auto) 0.5 Urine Crystals (Auto) None seen Urine Bacteria (Auto) 0.5 Stool Occult Blood Alcohol, Quantitative Blood Type O POSITIVE Antibody Screen Negative 02/12/19 02/12/19 02/12/19 21:45 22:17 22:17 WBC RBC Hgb Hct MCV MCH MCHC RDW Plt Count MPV Absolute Neuts (auto) Neutrophils % Lymphocytes % Monocytes % Eosinophils % Basophils % Nucleated RBC % VBG pH POC VBG pCO2 POC VBG pO2 VBG HCO3 VBG O2 Sat (Araceli) VBG Base Excess Sodium Potassium Chloride Carbon Dioxide Anion Gap BUN Creatinine Est GFR (CKD-EPI)AfAm Est GFR (CKD-EPI)NonAf POC Glucometer 139 Random Glucose Lactic Acid Calcium Total Bilirubin AST ALT Alkaline Phosphatase Ammonia 24.90 Troponin I Total Protein Albumin Lipase Urine Color Urine Appearance Urine pH Ur Specific [place] Urine Protein Urine Glucose (UA) Urine Ketones Urine Blood Urine Nitrite Urine Bilirubin Urine Urobilinogen Ur Leukocyte Esterase Urine WBC (Auto) Urine RBC (Auto) Urine Casts (Auto) U Pathogenic Cast Auto U Epithel Cells (Auto) Urine Crystals (Auto) Urine Bacteria (Auto) Stool Occult Blood Negative Alcohol, Quantitative Blood Type Antibody Screen ASSESSMENT/PLAN: This is a 59 y/o surinamese speaking M with a PMHx of ETOH abuse, chronic live dx presenting to the ED with his girlfriend after having severe abdominal pain radiating to his back ass with nausea, vomiting, and hematochezia associated diarrhea X 4 days. #Acute necrotic pancreatitis 2/2 ETOH abuse - IV LR 125 cc/hr, NPO, Levaquin 750BID and flagyl 500 TID due to the presence of necrosis - Morphine 2mg Q4H PRN - [place] criteria- score of 3 indicating severe pancreatitis with a 15% mortality - CT results as shown above - GI (Dr. Roach) consulted for acute panc management - ID consulted (Dr. Cortes) #Meningioma - CT image result shown above. - will need to obtain MRI with contrast to confirm. - Dr. Flores made aware via ED physicians who states he will not operate at this time and will consider once pancreatitis is resolved - will start decadron 4mg with protonix in mean time to decrease the vasogenic edema burden - loaded with keppra 1 g in ED will continue 500bid for seizure ppx. #Acute ETOH abuse - UA tox positive so difficult to call it "withdrawal" - continue to trend LFT's - CIWA 18 will initiate IV Ativan 1g Q2H PRN - aspiration/seizure/fall precautions - Banana bag - essation counseling provided - check lytes (Ca, K, Mg, Po4), will rpt Ca given hypocalcemia - consulted Dr. Hall for detox #Moderate Hyponatremia 2/2 deydration/fluid loss from pancreatitis - should resolve with IV fluids and improvement on Pancreatitis - rpt BMP 6 am to assess Na after fluid resuscitation, will be weary of correcting to quickly no more than 4-6meq's in 1st 24hrs. - asymptomatic hyponatremia at this time will not start hypertonic saline. #Microscopic hematuria - UA showing blood but no rbc's worrisome for rhabdo - so will order cpk and urine myoglobin to confirm. DVT PPX: Lovenox 40 SQ daily GI PPX: Protonix 40 one X dose for now with decadron Visit type - Emergency Visit Emergency Visit: Yes ED Registration Date: 02/13/19 Care time: The patient presented to the Emergency Department on the above date and was hospitalized for further evaluation of their emergent condition. - New Patient This patient is new to me today: Yes Date on this admission: 02/13/19 - Critical Care Critical Care patient: Yes Total Critical Care Time (in minutes): 35 Critical Care Statement: The care of this patient involved high complexity decision making to prevent further life threatening deterioration of the patient 's condition and/or to evaluate & treat vital organ system(s) failure or risk of failure. ATTENDING PHYSICIAN STATEMENT I saw and evaluated the patient. I reviewed the resident's note and discussed the case with the resident. I agree with the resident's findings and plan as documented. SUBJECTIVE: OBJECTIVE: ASSESSMENT AND PLAN:
[2019-02-13] MEDS ORDERED: LORazepam 2 MG/ML SDV VIAL IVPUSH PRN (05:08)
[2019-02-13] MEDS ORDERED: DEXAMETHASONE SOD PHOSPHATE 4 MG/1 ML VIAL IVPUSH ONE (05:10)
[2019-02-13] MEDS ORDERED: MORPHINE SULFATE 2 MG/ML VIAL IVPUSH PRN (05:10)
[2019-02-13] MEDS ORDERED: PANTOPRAZOLE SODIUM 40 MG VIAL IVPUSH ONE (05:11)
[2019-02-13] MEDS: LACTATED RINGERS SOLUTION 1,000 ML/1,000 ML INFUS.BAG IV SCH ×2 (05:58→10:05)
--- NOTE | 2019-02-13 08:16 | PN ---
Progress Note (short form) - Note Progress Note: NEUROSURGERY [facility] pt with documented anterior frontal falcine meningioma, ETOH abuse, chronic live dz c/o severe abdominal pain radiating to his back ass with nausea, vomiting, and hematochezia associated diarrhea X 4 days. + binge drinker. Poor po intake for the past 2 days. 20 yr binge drinking history. + headache and tremors. No witnessed sz. No arm or leg weakness. PE: T 98.9, VSS OR 100's HEENT- NC/AT; Neck- supple; Cor- tachy; Lungs- CTA B; Abd- obese, mild epigastric tenderness; Ext- no sign of DVT CN- intact; Motor- at least 4+ B UE/LE without drift; Sensation- intact LT; DTR - 1+; Cerebellar- mild past pointing B; no tremor WBC 19.8, Na 121; Lipase 982, lactic acid 5.[address]- ant falcine 2.5 x 2.0 cm hyperdense lesion with L frontal (posterior margin) edema Brain MRI (02/2018)- enhancing falcine meningioma similar to size above 2.5 x 2.0 cm with edema posteriorly Acute EtOH pancreatitis with possible necrosis Hyponatremia Stable frontal falcine meningioma with mild posterior margin edema, unchanged- no intervention planned at this time given acute pancreatic pathology and hyponatremia Keppra for sz prophylaxis Given stable mild edema pattern would not recommend senior living steroid If patient eventually desires surgical procedure for meninigioma should be performed at tertiary institution given poor overall medical conditions EtOH cessation discussed with pt
[2019-02-13 09:10] LABS: BASO % 0.1 % (0-2.0); HEMATOCRIT 31.3 % (35.4-49); HEMOGLOBIN 10.6 GM/dL (11.7-16.9); MCH 29.2 pg (25.7-33.7); MEAN PLT VOLUME 8.1 fl (7.5-11.1); MONO % 3.7 % (3.8-10.2); NEUT % 94.2 % (42.8-82.8); PLATELET COUNT 65 K/MM3 (134-434); RBC 3.64 M/mm3 (4.00-5.60); RDW 14.8 % (11.9-15.9)
--- NOTE | 2019-02-13 09:11 | CON.GI ---
Consult - History of Present Illness History of Present Illness: Mr. Torres is a 59 y/o Syrian speaking male with a PMHx of alcohol abuse - last drink was yesterday at which time he drank 9 beers and bacardi - he now presents to the hospital with complaints of epgastric abdominal pain / nausea/ vomiting - some blood in his vomitus a few days ago, also with diarrhea / hematochezia. No melena reported. He denies previous episode of pancreatitis He does not follow with GI doctor / denies egd/ colonoscopy in the past. - History Source History Provided By: Patient, Transfer Record Limitations to Obtaining History: No Limitations - Past Medical History BAKER SECOND: No: Alzheimer's, CVA, Dementia, Migraine, Multiple Sclerosis, Peripheral Neuropathy, Parkinson's, Seizure, Syncope, TIA, Vertigo, Other Cardio/Vascular: No: AFIB, Aneurysm, Aortic Insufficiency, Aortic Stenosis, CAD , CHF, Deep Vein Thrombosis, HTN, Hyperlipdemia, GA, Mitral Insufficiency, Mitral Stenosis, Murmur, Pulmonary Hypertension, Other Pulmonary: No: Asthma, Bronchitis, Cancer, COPD, O2 Dependent, Pneumonia, Previously Intubated, Pulmonary Embolus, Pulmonary Fibrosis, Sleep Apnea, Other Gastrointestinal: No: Ascites, Cancer, Constipation, Crohn's Disease, Diverticulitis, Diverticulosis, Esophageal Varices, Gastritis, GERD, GI Bleed, Hemorrhoids, Hiatal Hernia, Inflamatory Bowel Disease, Irritable Bowel Disease, Pancreatitis, Peptic Ulcer Disease, Ulcerative Colitis, Other Hepatobiliary: No: Cirrhosis, Cholelithiasis, Cholecystitis, Choledocholithiasis , Hepatitis A, Hepatitis B, Hepatitis C, Other Renal/: No: Renal Failure, Renal Inusuff, BPH, Cancer, Hematuria, Hemodialysis , Neurogenic Bladder, Renal Calculi, UTI, Other Heme/Onc: No: Anemia, B12 Deficiency, Bleeding Disorder, Cancer, Current Chemotherapy, Current Radiation Therapy, Hemochromatosis, Hypercoaguable State, Myeloproliferative Synd, Sickle Cell Disease, Sickle Cell Trait, Thrombocytopenia, Other Infectious Disease: No: AIDS, C-Diff, Herpes Zoster, HIV, MRSA, STD's, Tuberculosis, VREF, Other Psych: No: Addictions, Anxiety, Bipolar, Depression, Panic, Psychosis, Schizophrenia, Other Musculoskeletal: No: Bursitis, Chronic low back pain, Hemiparesis, Hemiplegia, Osteoarthritis, Paraplegia, Other Rheumatology: No: Fibromyalgia, Gout, Lupus, Rheumatoid Arthritis, Sarcoidosis, Vasculitis, Other ENT: No: Allergic Rhinitis, Sinusitis, Other Endocrine: No: Taiwo's Disease, Corinne's Disease, Diabetes Insipidus, Diabetes Mellitus, Hyperparathyroidism, Hyperthyroidism, Hypothyroidism, Osteopenia, SIADH, Other Dermatology: No: Basal Cell, Cellulitis, Eczema, Melanoma, Psoriasis, Squamous Cell, Other - Past Surgical History Past Surgical History: No: None, AAA Repair, AICD, Amputation, Appendectomy, Arthrosocopy, AV Fistula/Graft, Bariatric Surgery, Breast Biopsy, Bypass, CABG, Carotid Endarterectomy, Cataract Removal, Cholecystectomy, Colectomy, Colonoscopy, Colostomy, Craniotomy, , Cystectomy, Hernia Repair, Hysterectomy, Ileal Conduit, Ileosotomy, Joint Replacement, Kidney Transplant, Laminectomy, Liver Transplant, Mastectomy, Nephrectomy, Oopherectomy, Orchiectomy, Permanent Pacemaker, Prostatectomy, Splenectomy, Stent, Thoracotomy , TURP, Tonsillectomy, Tubal Ligation, Upper Endoscopy, Valve Replacement, Vasectomy, Vein Stripping/Ligation - Alcohol/Substance Use Hx Alcohol Use: Yes - Smoking History Smoking history: Never smoked Have you smoked in the past 12 months: No - Social History Usual Living Arrangement: With Significant Other Home Medications - Allergies Allergies/Adverse Reactions: Allergies Allergy/AdvReac Type Severity Reaction Status Date / Time No Known Allergies Allergy Verified 02/12/19 20:06 - Home Medications Home Medications: Ambulatory Orders Chlorhexidine Gluconate [Hibiclens For Decolonization -] 1 applic TP HS bottle 02/13/19 Ertapenem Sodium [Invanz -] 1 gm IVPB DAILY vial 02/13/19 LORazepam [Ativan Injection -] 1 mg IVPUSH Q2H PRN vial MDD 12 02/13/19 LORazepam [Ativan] 0.5 mg PO Q4H PRN tablet MDD 3 02/13/19 LORazepam [Ativan] 0.5 mg PO Q6H tablet MDD 2 02/13/19 LORazepam [Ativan] 1 mg PO 0500,1100,1700,2300 tablet MDD 4 02/13/19 LORazepam [Ativan] 1 mg PO Q4H PRN tablet MDD 6 02/13/19 LORazepam [Ativan] 2 mg PO 0500,1100,1700,2300 tablet MDD 8 02/13/19 Lorazepam Injection [Ativan Injection -] 2 mg IVPUSH Q1H PRN disp.syrin MDD 12 02/13/19 Morphine Sulfate 2 mg IVPUSH Q4H PRN vial MDD 12 02/13/19 Mupirocin Ointment [Bactroban Ointment (For Decolonization) -] 1 applic NS BID applic 02/13/19 Pantoprazole Sodium [Protonix IV] 40 mg IVPUSH BID vial 02/13/19 Family Medical History Family History: Unable to Obtain Review of Systems Unable to obtain ROS, reason: as per HPI - Review of Systems Constitutional: denies: No Symptoms, Chills, Diaphoresis, Fever, Lethargy, Loss of Appetite, Malaise, Night Sweats, Unintentional Wgt. Loss, Weakness, Other Eyes: denies: No Symptoms, Blind Spots, Blurred Vision, Double Vision, Eye Pain , Floaters, Photophobia, Recent Change in Vision, Other HENT: denies: No Symptoms, Difficult Swallowing, Ear Discharge, Ear Pain, Epistaxis, Gingival Bleeding, Hearing Loss, Mouth Swelling, Nasal Congestion, Ocular Prosthesis, Throat Pain, Toothache, Ringing in Ears, Other Neck: denies: No Symptoms, Decreased ROM, Lumps, Pain on Movement, Stiffness, Swollen Glands, Tenderness, Other Cardiovascular: denies: No Symptoms, Chest Pain, Edema, Palpitations, Shortness of Breath, Other Respiratory: denies: No Symptoms, Cough, Exercise Intolerance, Hemoptysis, Orthopnea, PND, Snoring, SOB, SOB on Exertion, Wheezing, Other Gastrointestinal: reports: Other (see hPI) Genitourinary: denies: No Symptoms, Burning, Discharge, Dysuria, Flank Pain, Frequency, Hematuria, Incontinence, Lesions, Menses, Pain, Testicular Mass, Testicular Pain, Testicular Swelling, Urgency, Vaginal Bleeding, Other Breasts: denies: No Symptoms Reported, See HPI, Breast Implants, Discharge from Nipple, Lumps, Pain, Skin Changes, Other Musculoskeletal: denies: No Symptoms, Back Pain, Crepitus, Decreased ROM, Extremity Pain, Joint Pain, Joint Swelling, Muscle Pain, Muscle Cramps, Muscle Weakness, Other Neurological: denies: No Symptoms, Change in LOC, Change in Speech, Confusion, Dizziness, Headache, Incoordination, Numbness, Parasthesia, Pre-Existing Deficit , Seizure, Syncope, Tremors, Unsteady Gait, Weakness, Other Endocrine: denies: No Symptoms, Excessive Sweating, Flushing, Increased Hunger, Increased Thirst, Intolerance to Cold, Intolerance to Heat, Unexplained Weight Gain, Unexplained Weight Loss, Other Hematology/Lymphatic: denies: No Symptoms, Easily Bruised, Excessive Bleeding, Swollen Glands, Other Psychiatric: denies: No Symptoms, Altered Sleep Pattern, Anxiety, Depression, Hallucinations, Panic, Paranoia, Suicidal, Other Physical Exam-GI Vital Signs: Vital Signs Temperature 98.9 F 02/13/19 06:00 Pulse Rate 107 H 02/13/19 06:00 Respiratory Rate 22 H 02/13/19 06:00 Blood Pressure 137/79 02/13/19 06:00 O2 Sat by Pulse Oximetry (%) 97 02/13/19 08:00 Constitutional: Yes: Well Nourished, No Distress, Calm Eyes: Yes: WNL HENT: Yes: WNL Neck: Yes: WNL Cardiovascular: Yes: WNL, Regular Rate and Rhythm Respiratory: Yes: WNL, Regular, CTA Bilaterally Gastrointestinal Inspection: Yes: Other (tender in epigastrium without rebound or guarding ; tympanitic normal bowel sounds) Musculoskeletal: Yes: WNL Edema: No Neurological: Yes: WNL, Alert, Oriented Problem List - Problems (1) Acute pancreatitis Code(s): K85.90 - ACUTE PANCREATITIS WITHOUT NECROSIS OR INFECTION, UNSP Qualifiers: Pancreatitis type: alcohol induced Acute pancreatitis complication: infected necrosis Qualified Code(s): K85.22 - Alcohol induced acute pancreatitis with infected necrosis (2) Transaminitis Code(s): R74.0 - NONSPEC ELEV OF LEVELS OF TRANSAMNS & LACTIC ACID DEHYDRGNSE (3) Alcohol withdrawal Code(s): F10.239 - ALCOHOL DEPENDENCE WITH WITHDRAWAL, UNSPECIFIED Qualifiers: Complication of substance-induced condition: uncomplicated Qualified Code(s ): F10.230 - Alcohol dependence with withdrawal, uncomplicated (4) EtOH dependence Code(s): F10.20 - ALCOHOL DEPENDENCE, UNCOMPLICATED Assessment/Plan Impression: Acute pancreatitis - etoh induced imaging reviewed ? pancreatic necrosis REC: IVF to be increased to 200 cc/ hr repeat cmet and cbc q12 monitor volume status panculture etoh withdrawal protocol MRCP surgery evaluation he has been started on abx which can be continued NPO
[2019-02-13 09:29] LABS: ALBUMIN 2.2 g/dl (3.4-5.0); BILIRUBIN,TOTAL 8.9 mg/dL (0.2-1); BLOOD UREA NITROGEN 4.6 mg/dL (7-18); CREATININE 0.5 mg/dL (0.55-1.3); POTASSIUM 3.8 mmol/L (3.5-5.1); TOT PROT 5.4 g/dl (6.4-8.2)
[2019-02-13 09:30] LABS: INR 1.3 (0.83-1.09); PROTHROMBIN TIME (PATIENT) 15.4 SEC (9.7-13.0)
[2019-02-13 09:31] LABS: CALCIUM 6.6 mg/dL (8.5-10.1)
[2019-02-13] MEDS ORDERED: LORazepam 1 MG TABLET PO PRN (09:31)
[2019-02-13] MEDS ORDERED: CALCIUM CHLORIDE 10% 1 GM/10 ML *VIAL IVPB ONE (09:32)
[2019-02-13 09:33] LABS: ACTIVATED PTT 31.7 SECONDS (25.2-36.5)
[2019-02-13] MEDS ORDERED: LORazepam 2 MG/ML SDV VIAL ONE (09:34)
[2019-02-13] MEDS ORDERED: MUPIROCIN 2% TOPICAL OINTMENT FOR DECOLONIZATION NS SCH (10:00)
[2019-02-13] MEDS ORDERED: PANTOPRAZOLE SODIUM 40 MG VIAL IVPUSH SCH (10:00)
[2019-02-13] MEDS ORDERED: ENOXAPARIN NA (PORCINE) 40 MG/0.4 ML DISP.SYRIN SQ SCH (10:00)
[2019-02-13 10:02] LABS: MAGNESIUM 1.7 mg/dL (1.8-2.4); PHOSPHOROUS 1.7 mg/dL (2.5-4.9)
[2019-02-13] MEDS ORDERED: PANTOPRAZOLE SODIUM 40 MG/100 ML BAG IVPB ONE (10:14)
--- NOTE | 2019-02-13 10:34 | EKG ---
Test Reason : Blood Pressure : / mmHG Vent. Rate : 106 BPM Atrial Rate : 106 BPM P-R Int : 188 ms QRS Dur : 100 ms QT Int : 342 ms P-R-T Axes : 049 029 027 degrees QTc Int : 454 ms SINUS TACHYCARDIA POSSIBLE LEFT ATRIAL ENLARGEMENT BORDERLINE ECG WHEN COMPARED WITH ECG OF 07-MAR-2018 11:26, NO SIGNIFICANT CHANGE WAS FOUND Confirmed by Adam Kaiser MD ([id number]) on 02/13/2019 10:33:43 AM Referred By: Confirmed By:Adam Kaiser MD
[2019-02-13] MEDS ORDERED: LORazepam 2 MG TABLET PO SCH (11:00)
--- NOTE | 2019-02-13 11:16 | CONSULT ---
Consultation: REQUESTING PROVIDER: Dr. Reyes CONSULT REQUEST: We have been asked to medically evaluate this patient for Acute Pancreatitis cannot r/o pancreatic necrosis. HISTORY OF PRESENT ILLNESS: Pt. is a 59 y.o. Romanian-speaking M w/ PMHx. of EtOH abuse, parafalcine meningioma, and urinary retention though Pt. denies having any PMHx. or PSHx. Pt. states the the pain started 4 days ago and has been worsening. Pt. was brought in by his Landlord? who he lives with. Pt. states that he has headache as well over the last 4 days. Pt. endorses fever and chills but states he did not measure the temperature at home. Pt. states that he has had abdominal pain in the past but not like this when he came in for alcohol intoxication and withdrawal. Pt. states that he last drank 2 small bottles of tequila last yesterday. Pt. states he usually drinks 2 big cans of beer and 2 small bottles of tequila per day. Pt. states that he has been having melena, last happened yesterday. Pt. endorses hemoptysis x 1 after 5 episodes prior. Pt. endorses dysuria but denies zaki blood in the urine. Pt. denies zaki blood in the stool. Pt. currently denies any pain anywhere and states that he is "sleepy" because of a medication(Ativan) that the doctor just gave him. Interpretation provided by [facility] (#[id number]) REVIEW OF SYSTEMS: As above PHYSICAL EXAMINATION Vital Signs - 24 hr 02/12/19 02/12/19 02/13/19 20:03 21:48 00:25 Temperature 99.9 F H Pulse Rate 125 H Pulse Rate [ Apical] Pulse Rate [ 109 H 102 H Left] Respiratory 22 H 22 H 19 Rate Blood Pressure 118/79 Blood Pressure 126/86 128/81 [Left Arm] Blood Pressure [Right Arm] O2 Sat by Pulse 100 97 95 Oximetry (%) 02/13/19 02/13/19 02/13/19 02:10 04:02 06:00 Temperature 98.9 F Pulse Rate Pulse Rate [ Apical] Pulse Rate [ 105 H 109 H 107 H Left] Respiratory 20 20 22 H Rate Blood Pressure Blood Pressure 132/80 137/80 137/79 [Left Arm] Blood Pressure [Right Arm] O2 Sat by Pulse 97 98 99 Oximetry (%) 02/13/19 08:00 Temperature Pulse Rate Pulse Rate [ 114 H Apical] Pulse Rate [ Left] Respiratory 24 H Rate Blood Pressure Blood Pressure [Left Arm] Blood Pressure 141/94 [Right Arm] O2 Sat by Pulse 97 Oximetry (%) GENERAL: Awake, alert, and fully oriented, in mild distress. HEAD: Normal with no signs of trauma. EYES: Pupils equal, round and reactive to light, extraocular movements intact, sclera anicteric, conjunctiva clear. No lid lag. EARS, NOSE, THROAT: Ears normal, nares patent, oropharynx clear without exudates. Moist mucous membranes. NECK: Normal range of motion, supple without lymphadenopathy, JVD, or masses. LUNGS: Breath sounds equal, clear to auscultation bilaterally. No wheezes, and no crackles. No accessory muscle use. HEART: Regular rate and rhythm, normal S1 and S2 without murmur, rub or gallop. ABDOMEN: Soft, nontender, not distended, normoactive bowel sounds, no guarding, no rebound, no masses. No hepatomegaly or splenomegaly. MUSCULOSKELETAL: Normal range of motion at all joints. No bony deformities or tenderness. No CVA tenderness. UPPER EXTREMITIES: 2+ pulses, warm, well-perfused. No cyanosis. No clubbing. Cap refill <2 seconds. No peripheral edema. LOWER EXTREMITIES: 2+ pulses, warm, well-perfused. No calf tenderness. No peripheral edema. NEUROLOGICAL: Cranial nerves II-XII intact. Normal speech. Normal gait. PSYCHIATRIC: Cooperative. Good eye contact. Appropriate mood and affect. SKIN: Warm, dry, normal turgor, no rashes or lesions noted. Laboratory Results - last 24 hr 02/12/19 02/12/19 02/12/19 21:26 21:26 21:26 WBC 19.8 H RBC 4.60 Hgb 13.2 Hct 39.8 MCV 86.6 MCH 28.8 MCHC 33.3 RDW 15.4 Plt Count 90 L MPV 8.9 D Absolute Neuts (auto) 17.9 H Neutrophils % 90.4 H Lymphocytes % 6.3 L Monocytes % 3.0 L Eosinophils % 0.0 Basophils % 0.3 Nucleated RBC % 0 PT with INR INR PTT (Actin FS) VBG pH POC VBG pCO2 POC VBG pO2 VBG HCO3 VBG O2 Sat (Araceli) VBG Base Excess Sodium 121 L Potassium 3.8 Chloride 87 L Carbon Dioxide 20 L Anion Gap 13 BUN 7.4 Creatinine 0.8 Est GFR (CKD-EPI)AfAm 114.13 Est GFR (CKD-EPI)NonAf 98.47 POC Glucometer Random Glucose 124 H Lactic Acid 5.1 H* Calcium 7.0 L Phosphorus Magnesium Total Bilirubin 9.9 H AST 404 H ALT 238 H Alkaline Phosphatase 337 H Ammonia Creatine Kinase Creatine Kinase Index CK-MB (CK-2) Troponin I 0.05 Total Protein 6.8 Albumin 2.9 L Triglycerides Cholesterol Total LDL Cholesterol HDL Cholesterol Lipase 982 H Urine Color Urine Appearance Urine pH Ur Specific [place] Urine Protein Urine Glucose (UA) Urine Ketones Urine Blood Urine Nitrite Urine Bilirubin Urine Urobilinogen Ur Leukocyte Esterase Urine WBC (Auto) Urine RBC (Auto) Urine Casts (Auto) U Pathogenic Cast Auto U Epithel Cells (Auto) Urine Crystals (Auto) Urine Bacteria (Auto) Stool Occult Blood Alcohol, Quantitative 317.8 H Blood Type Antibody Screen 02/12/19 02/12/19 02/12/19 21:26 21:26 21:26 WBC RBC Hgb Hct MCV MCH MCHC RDW Plt Count MPV Absolute Neuts (auto) Neutrophils % Lymphocytes % Monocytes % Eosinophils % Basophils % Nucleated RBC % PT with INR INR PTT (Actin FS) VBG pH 7.47 H POC VBG pCO2 28.2 L POC VBG pO2 73.0 H VBG HCO3 20.3 L VBG O2 Sat (Araceli) 93.4 H VBG Base Excess -1.8 Sodium Potassium Chloride Carbon Dioxide Anion Gap BUN Creatinine Est GFR (CKD-EPI)AfAm Est GFR (CKD-EPI)NonAf POC Glucometer Random Glucose Lactic Acid Calcium Phosphorus Magnesium Total Bilirubin AST ALT Alkaline Phosphatase Ammonia Creatine Kinase Creatine Kinase Index CK-MB (CK-2) Troponin I Total Protein Albumin Triglycerides Cholesterol Total LDL Cholesterol HDL Cholesterol Lipase Urine Color Dk yellow Urine Appearance Cloudy Urine pH 5.5 D Ur Specific [place] 1.022 Urine Protein 1+ H Urine Glucose (UA) Negative Urine Ketones Negative Urine Blood 2+ H Urine Nitrite Positive H Urine Bilirubin 3+ H Urine Urobilinogen 1.0 Ur Leukocyte Esterase Trace Urine WBC (Auto) 1 Urine RBC (Auto) 1 Urine Casts (Auto) 12 U Pathogenic Cast Auto 3-5 U Epithel Cells (Auto) 0.5 Urine Crystals (Auto) None seen Urine Bacteria (Auto) 0.5 Stool Occult Blood Alcohol, Quantitative Blood Type O POSITIVE Antibody Screen Negative 02/12/19 02/12/19 02/12/19 21:45 22:17 22:17 WBC RBC Hgb Hct MCV MCH MCHC RDW Plt Count MPV Absolute Neuts (auto) Neutrophils % Lymphocytes % Monocytes % Eosinophils % Basophils % Nucleated RBC % PT with INR INR PTT (Actin FS) VBG pH POC VBG pCO2 POC VBG pO2 VBG HCO3 VBG O2 Sat (Araceli) VBG Base Excess Sodium Potassium Chloride Carbon Dioxide Anion Gap BUN Creatinine Est GFR (CKD-EPI)AfAm Est GFR (CKD-EPI)NonAf POC Glucometer 139 Random Glucose Lactic Acid Calcium Phosphorus Magnesium Total Bilirubin AST ALT Alkaline Phosphatase Ammonia 24.90 Creatine Kinase Creatine Kinase Index CK-MB (CK-2) Troponin I Total Protein Albumin Triglycerides Cholesterol Total LDL Cholesterol HDL Cholesterol Lipase Urine Color Urine Appearance Urine pH Ur Specific [place] Urine Protein Urine Glucose (UA) Urine Ketones Urine Blood Urine Nitrite Urine Bilirubin Urine Urobilinogen Ur Leukocyte Esterase Urine WBC (Auto) Urine RBC (Auto) Urine Casts (Auto) U Pathogenic Cast Auto U Epithel Cells (Auto) Urine Crystals (Auto) Urine Bacteria (Auto) Stool Occult Blood Negative Alcohol, Quantitative Blood Type Antibody Screen 02/13/19 02/13/19 02/13/19 08:45 08:45 08:45 WBC 14.0 H RBC 3.64 L Hgb 10.6 L Hct 31.3 L D MCV 86.0 MCH 29.2 MCHC 34.0 RDW 14.8 Plt Count 65 L D MPV 8.1 Absolute Neuts (auto) 13.2 H Neutrophils % 94.2 H Lymphocytes % 2.0 L D Monocytes % 3.7 L Eosinophils % 0.0 Basophils % 0.1 Nucleated RBC % 0 PT with INR 15.40 H INR 1.30 H PTT (Actin FS) 31.7 VBG pH POC VBG pCO2 POC VBG pO2 VBG HCO3 VBG O2 Sat (Araceli) VBG Base Excess Sodium 131 L Potassium 3.8 Chloride 98 Carbon Dioxide 24 Anion Gap 8 BUN 4.6 L Creatinine 0.5 L Est GFR (CKD-EPI)AfAm 138.44 Est GFR (CKD-EPI)NonAf 119.45 POC Glucometer Random Glucose 104 Lactic Acid Calcium 6.6 L* Phosphorus 1.7 L Magnesium 1.7 L Total Bilirubin 8.9 H AST 264 H ALT 168 H Alkaline Phosphatase 258 H Ammonia Creatine Kinase 213 Creatine Kinase Index 1.6 CK-MB (CK-2) 3.5 Troponin I 0.02 Total Protein 5.4 L Albumin 2.2 L Triglycerides 581 H Cholesterol 150 Total LDL Cholesterol 87 HDL Cholesterol 10 L Lipase Urine Color Urine Appearance Urine pH Ur Specific [place] Urine Protein Urine Glucose (UA) Urine Ketones Urine Blood Urine Nitrite Urine Bilirubin Urine Urobilinogen Ur Leukocyte Esterase Urine WBC (Auto) Urine RBC (Auto) Urine Casts (Auto) U Pathogenic Cast Auto U Epithel Cells (Auto) Urine Crystals (Auto) Urine Bacteria (Auto) Stool Occult Blood Alcohol, Quantitative Blood Type Antibody Screen 02/13/19 08:45 WBC RBC Hgb Hct MCV MCH MCHC RDW Plt Count MPV Absolute Neuts (auto) Neutrophils % Lymphocytes % Monocytes % Eosinophils % Basophils % Nucleated RBC % PT with INR INR PTT (Actin FS) VBG pH POC VBG pCO2 POC VBG pO2 VBG HCO3 VBG O2 Sat (Araceli) VBG Base Excess Sodium Potassium Chloride Carbon Dioxide Anion Gap BUN Creatinine Est GFR (CKD-EPI)AfAm Est GFR (CKD-EPI)NonAf POC Glucometer Random Glucose Lactic Acid 2.2 H* Calcium Phosphorus Magnesium Total Bilirubin AST ALT Alkaline Phosphatase Ammonia Creatine Kinase Creatine Kinase Index CK-MB (CK-2) Troponin I Total Protein Albumin Triglycerides Cholesterol Total LDL Cholesterol HDL Cholesterol Lipase Urine Color Urine Appearance Urine pH Ur Specific [place] Urine Protein Urine Glucose (UA) Urine Ketones Urine Blood Urine Nitrite Urine Bilirubin Urine Urobilinogen Ur Leukocyte Esterase Urine WBC (Auto) Urine RBC (Auto) Urine Casts (Auto) U Pathogenic Cast Auto U Epithel Cells (Auto) Urine Crystals (Auto) Urine Bacteria (Auto) Stool Occult Blood Alcohol, Quantitative Blood Type Antibody Screen Active Medications Home Medications Medication Instructions Recorded Sulfamethoxazole/Trimethoprim 1 tab PO BID #14 tablet 10/27/18 [Bactrim Ds -] Current Medications Chlorhexidine Gluconate (Hibiclens For Decolonization -) 1 applic TP HS [facility] Lactated Ringer's (Lactated Ringers Solution) 1,000 ml in 1,000 mls @ 125 mls/ hr IV ASDIR [facility] Last Admin: 02/13/19 10:05 Dose: 125 mls/hr Metronidazole (Flagyl 500mg Premixed Ivpb -) 500 mg in 100 mls @ 100 mls/hr IVPB Q8H-IV [facility] Last Admin: 02/13/19 10:00 Dose: 100 mls/hr Levofloxacin (Levaquin 500 Mg Premixed Ivpb -) 500 mg in 100 mls @ 100 mls/hr IVPB DAILY [facility]; Protocol Lorazepam (Ativan Injection -) 1 mg IVPUSH Q2H PRN PRN Reason: ANXIETY Last Admin: 02/13/19 09:30 Dose: 1 mg Lorazepam (Ativan) 2 mg PO 0500,1100,1700,2300 [facility] Stop: 02/14/19 23:01 Lorazepam (Ativan -) 0.5 mg PO Q6H [facility] Stop: 02/16/19 23:01 Lorazepam (Ativan -) 0.5 mg PO Q4H PRN PRN Reason: Symptoms of Withdrawal Stop: 02/17/19 00:00 Lorazepam (Ativan -) 0.5 mg PO ONCE ONE Stop: 02/17/19 05:01 Lorazepam (Ativan -) 1 mg PO 0500,1100,1700,2300 [facility] Stop: 02/15/19 23:01 Lorazepam (Ativan -) 1 mg PO Q4H PRN PRN Reason: Symptoms of Withdrawal Stop: 02/15/19 23:59 Morphine Sulfate (Morphine Sulfate) 2 mg IVPUSH Q4H PRN PRN Reason: PAIN LEVEL 6-10 Mupirocin (Bactroban Ointment (For Decolonization) -) 1 applic NS BID [facility] Stop: 02/18/19 09:59 Pantoprazole Sodium (Protonix Iv) 40 mg IVPUSH BID [facility] Last Admin: 02/13/19 10:30 Dose: 40 mg ASSESSMENT/PLAN: Pt. is a 59 y.o. Romanian-speaking M w/ PMHx. of EtOH abuse, parafalcine meningioma, and urinary retention though Pt. denies having any PMHx. or PSHx. Pt. admitted for acute pancreatitis. #Gastroenterology/Infectious Disease Acute Pancreatitis EtOH Withdrawal Transaminitis CIWA: 14 Aggressive IVF w. LR @ 200 start Ertapenem for suspected Pancreatic Necrosis c/w Ativan Protocol elevated LFTs Lipase 900+ CT Abdomen Pelvis: acute pancreatitis possible necrosis of the pancreatic tail; f/u MRCP c/w Protonix 40mg BID GI consult (Dr. Roach) appreciated Surgery consult appreciated (Dr. Jeffery) ID consult appreciated (Dr. Cortes) #Neurology Hyponatremia Parafalcine Meningioma Pt. presented with Sodium of 121 at 930pm last night--> now 131 at 930am Pt. on LR @200 monitor neurochecks Q2H Neurosurgery consult appreciated (Dr. Flores)- No steroids indicated at this time, c/w Keppra for seizure prophylaxis, no surgical intervention at this time Head CT: unchanged from prior Head CT last year #Nephrology Hx. of urinary retention No acute problems continue monitor BMPs monitor Is & Os #Pulmonology Chest CT: small left pleural effusion with atelectasis titrate supplemental O2 to keep SpO2 above 90% #FEN LR @ 200 monitor electrolytes and replete as needed NPO #DVT Ppx. Hold AC, pending surgical intervention SCDs Dispo: Suggest transferring to tertiary facility if found to have pancreatic necrosis. We will continue to follow the patient. Thank you for this consultative opportunity. ATTENDING PHYSICIAN STATEMENT I saw and evaluated the patient. I reviewed the resident's note and discussed the case with the resident. I agree with the resident's findings and plan as documented. SUBJECTIVE: OBJECTIVE: ASSESSMENT AND PLAN:
[2019-02-13 11:40] LABS: PLATELET ESTIMATE DECREASED
[2019-02-13] MEDS ORDERED: LORazepam 0.5 MG TABLET ONE (12:17)
[2019-02-13] MEDS ORDERED: LACTATED RINGERS SOLUTION 1,000 ML/1,000 ML INFUS.BAG IV SCH (12:26)
[2019-02-13] MEDS ORDERED: ERTAPENEM SODIUM 1 GM in SODIUM CHLORIDE 50 ML IVPB SCH (12:30)
--- NOTE | 2019-02-13 14:07 | CON.ID ---
Consult - Alcohol/Substance Use Hx Alcohol Use: Yes - Smoking History Smoking history: Never smoked Have you smoked in the past 12 months: No Home Medications - Allergies Allergies/Adverse Reactions: Allergies Allergy/AdvReac Type Severity Reaction Status Date / Time No Known Allergies Allergy Verified 02/12/19 20:06 - Home Medications Home Medications: Ambulatory Orders Sulfamethoxazole/Trimethoprim [Bactrim Ds -] 1 tab PO BID #14 tablet 10/27/18 Physical Exam Vital Signs: Vital Signs Temperature 98.9 F 02/13/19 06:00 Pulse Rate 114 H 02/13/19 08:00 Respiratory Rate 24 H 02/13/19 08:00 Blood Pressure 141/94 02/13/19 08:00 O2 Sat by Pulse Oximetry (%) 97 02/13/19 08:00 Labs: CBC, BMP 02/13/19 08:45 02/13/19 08:45
--- NOTE | 2019-02-13 14:08 | PN ---
Teaching Attending Note Name of Resident: Sesar Galvan ATTENDING PHYSICIAN STATEMENT I saw and evaluated the patient. I reviewed the resident's note and discussed the case with the resident. I agree with the resident's findings and plan as documented. SUBJECTIVE: Pt seen and examined in the ED. CT imaging showing acute pancreatitis with suspected area of necrosis. No fevers recorded. WBC rising. OBJECTIVE: Vital Signs Period Temp Pulse Resp BP Sys/Orr Pulse Ox Last 24 Hr 98.9 F-99.9 F 102-125 19-24 118-141/79-94 95-100 Intake & Output 02/10/19 02/11/19 02/12/19 02/13/19 23:59 23:59 23:59 23:59 Intake Total 3000 Output Total 980 Balance 2019 Weight 81.647 kg Gen: jaundiced Heart: tachycardic, regular Lung: decreased breath sounds at the bases Abd: softly distended, mild TTP Ext: no edema CBC, BMP 02/13/19 08:45 02/13/19 08:45 Active Medications Chlorhexidine Gluconate (Hibiclens For Decolonization -) 1 applic TP HS [facility] Metronidazole (Flagyl 500mg Premixed Ivpb -) 500 mg in 100 mls @ 100 mls/hr IVPB Q8H-IV [facility] Last Admin: 02/13/19 10:00 Dose: 100 mls/hr Levofloxacin (Levaquin 500 Mg Premixed Ivpb -) 500 mg in 100 mls @ 100 mls/hr IVPB DAILY [facility]; Protocol Lactated Ringer's (Lactated Ringers Solution) 1,000 ml in 1,000 mls @ 200 mls/ hr IV ASDIR [facility] Last Admin: 02/13/19 13:15 Dose: 200 mls/hr Ertapenem 1 gm/ Sodium (Chloride) 50 mls @ 100 mls/hr IVPB DAILY [facility] Lorazepam (Ativan Injection -) 1 mg IVPUSH Q2H PRN PRN Reason: ANXIETY Last Admin: 02/13/19 09:30 Dose: 1 mg Lorazepam (Ativan) 2 mg PO 0500,1100,1700,2300 [facility] Stop: 02/14/19 23:01 Last Admin: 02/13/19 12:14 Dose: 2 mg Lorazepam (Ativan -) 0.5 mg PO Q6H [facility] Stop: 02/16/19 23:01 Lorazepam (Ativan -) 0.5 mg PO Q4H PRN PRN Reason: Symptoms of Withdrawal Stop: 02/17/19 00:00 Lorazepam (Ativan -) 0.5 mg PO ONCE ONE Stop: 02/17/19 05:01 Lorazepam (Ativan -) 1 mg PO 0500,1100,1700,2300 [facility] Stop: 02/15/19 23:01 Lorazepam (Ativan -) 1 mg PO Q4H PRN PRN Reason: Symptoms of Withdrawal Stop: 02/15/19 23:59 Morphine Sulfate (Morphine Sulfate) 2 mg IVPUSH Q4H PRN PRN Reason: PAIN LEVEL 6-10 Mupirocin (Bactroban Ointment (For Decolonization) -) 1 applic NS BID [facility] Stop: 02/18/19 09:59 Pantoprazole Sodium (Protonix Iv) 40 mg IVPUSH BID [facility] Last Admin: 02/13/19 10:30 Dose: 40 mg ASSESSMENT AND PLAN: Acute Pancreatitis Sepsis Lactic Acidosis Elevated LFTs - r/o obstruction r/o Liver Cirrhosis Hyponatremia Alcohol Abuse GI Bleed Anemia Thrombocytopenia - IVF resuscitation - empiric antibiotics - f/u cultures - monitor CBC - transfuse as needed - GI, surgery eval - trend LFTs - monitor and replete lytes - monitor for withdrawal symptoms - DVT prophylaxis - would transfer to [facility]
[2019-02-13] MEDS ORDERED: CEFTRIAXONE 1 GM in DEXTROSE 5%-WATER - 50 ML IVPB SCH (14:15)
[2019-02-13] MEDS ORDERED: MAGNESIUM SULF 50% (8.12 MEQ/2 ML-1 GM VIAL) IVPB ONE (15:17)
[2019-02-13 15:31] VITALS: TEMP 99.4
--- NOTE | 2019-02-13 15:46 | PN ---
Teaching Attending Note Name of Resident: Brennon Galloway ATTENDING PHYSICIAN STATEMENT I saw and evaluated the patient. I reviewed the resident's note and discussed the case with the resident. I agree with the resident's findings and plan as documented. SUBJECTIVE: Complains of hallucinations, auditory and visual. Reports abdominal pain/nausea/vomiting/hematemesis prior to ED arrival. OBJECTIVE: T 99.9. Hemodynamically Stable. Last Vital Signs Temp Pulse Resp BP Pulse Ox 98.9 F 118 H 18 134/83 93 L 02/13/19 06:00 02/13/19 13:00 02/13/19 13:00 02/13/19 13:00 02/13/19 13:00 HEENT - Icteric Sclerae, Diaphoresis, tongue fasciculation Heart - Tachycardia Lungs - decreased air entry at bases Abdomen - generlized tenderness worse in epigastrum Extremities - trace edema, no calf tenderness. Neuro - AAO x 3. Tremulous. Diaphoretic. Tone/Power normal all 4 extremities. Laboratory Results - last 24 hr 02/12/19 02/12/19 02/12/19 21:26 21:26 21:26 WBC 19.8 H RBC 4.60 Hgb 13.2 Hct 39.8 MCV 86.6 MCH 28.8 MCHC 33.3 RDW 15.4 Plt Count 90 L MPV 8.9 D Absolute Neuts (auto) 17.9 H Neutrophils % 90.4 H Neutrophils % (Manual) Band Neutrophils % Lymphocytes % 6.3 L Lymphocytes % (Manual) Monocytes % 3.0 L Monocytes % (Manual) Eosinophils % 0.0 Eosinophils % (Manual) Basophils % 0.3 Basophils % (Manual) Myelocytes % (Man) Promyelocytes % (Man) Blast Cells % (Manual) Nucleated RBC % 0 Metamyelocytes Platelet Estimate PT with INR INR PTT (Actin FS) VBG pH POC VBG pCO2 POC VBG pO2 VBG HCO3 VBG O2 Sat (Araceli) VBG Base Excess Sodium 121 L Potassium 3.8 Chloride 87 L Carbon Dioxide 20 L Anion Gap 13 BUN 7.4 Creatinine 0.8 Est GFR (CKD-EPI)AfAm 114.13 Est GFR (CKD-EPI)NonAf 98.47 POC Glucometer Random Glucose 124 H Lactic Acid 5.1 H* Calcium 7.0 L Phosphorus Magnesium Total Bilirubin 9.9 H AST 404 H ALT 238 H Alkaline Phosphatase 337 H Ammonia Creatine Kinase Creatine Kinase Index CK-MB (CK-2) Troponin I 0.05 Total Protein 6.8 Albumin 2.9 L Triglycerides Cholesterol Total LDL Cholesterol HDL Cholesterol Lipase 982 H Urine Color Urine Appearance Urine pH Ur Specific [place] Urine Protein Urine Glucose (UA) Urine Ketones Urine Blood Urine Nitrite Urine Bilirubin Urine Urobilinogen Ur Leukocyte Esterase Urine WBC (Auto) Urine RBC (Auto) Urine Casts (Auto) U Pathogenic Cast Auto U Epithel Cells (Auto) Urine Crystals (Auto) Urine Bacteria (Auto) Stool Occult Blood Alcohol, Quantitative 317.8 H Blood Type Antibody Screen 02/12/19 02/12/19 02/12/19 21:26 21:26 21:26 WBC RBC Hgb Hct MCV MCH MCHC RDW Plt Count MPV Absolute Neuts (auto) Neutrophils % Neutrophils % (Manual) Band Neutrophils % Lymphocytes % Lymphocytes % (Manual) Monocytes % Monocytes % (Manual) Eosinophils % Eosinophils % (Manual) Basophils % Basophils % (Manual) Myelocytes % (Man) Promyelocytes % (Man) Blast Cells % (Manual) Nucleated RBC % Metamyelocytes Platelet Estimate PT with INR INR PTT (Actin FS) VBG pH 7.47 H POC VBG pCO2 28.2 L POC VBG pO2 73.0 H VBG HCO3 20.3 L VBG O2 Sat (Araceli) 93.4 H VBG Base Excess -1.8 Sodium Potassium Chloride Carbon Dioxide Anion Gap BUN Creatinine Est GFR (CKD-EPI)AfAm Est GFR (CKD-EPI)NonAf POC Glucometer Random Glucose Lactic Acid Calcium Phosphorus Magnesium Total Bilirubin AST ALT Alkaline Phosphatase Ammonia Creatine Kinase Creatine Kinase Index CK-MB (CK-2) Troponin I Total Protein Albumin Triglycerides Cholesterol Total LDL Cholesterol HDL Cholesterol Lipase Urine Color Dk yellow Urine Appearance Cloudy Urine pH 5.5 D Ur Specific [place] 1.022 Urine Protein 1+ H Urine Glucose (UA) Negative Urine Ketones Negative Urine Blood 2+ H Urine Nitrite Positive H Urine Bilirubin 3+ H Urine Urobilinogen 1.0 Ur Leukocyte Esterase Trace Urine WBC (Auto) 1 Urine RBC (Auto) 1 Urine Casts (Auto) 12 U Pathogenic Cast Auto 3-5 U Epithel Cells (Auto) 0.5 Urine Crystals (Auto) None seen Urine Bacteria (Auto) 0.5 Stool Occult Blood Alcohol, Quantitative Blood Type O POSITIVE Antibody Screen Negative 02/12/19 02/12/19 02/12/19 21:45 22:17 22:17 WBC RBC Hgb Hct MCV MCH MCHC RDW Plt Count MPV Absolute Neuts (auto) Neutrophils % Neutrophils % (Manual) Band Neutrophils % Lymphocytes % Lymphocytes % (Manual) Monocytes % Monocytes % (Manual) Eosinophils % Eosinophils % (Manual) Basophils % Basophils % (Manual) Myelocytes % (Man) Promyelocytes % (Man) Blast Cells % (Manual) Nucleated RBC % Metamyelocytes Platelet Estimate PT with INR INR PTT (Actin FS) VBG pH POC VBG pCO2 POC VBG pO2 VBG HCO3 VBG O2 Sat (Araceli) VBG Base Excess Sodium Potassium Chloride Carbon Dioxide Anion Gap BUN Creatinine Est GFR (CKD-EPI)AfAm Est GFR (CKD-EPI)NonAf POC Glucometer 139 Random Glucose Lactic Acid Calcium Phosphorus Magnesium Total Bilirubin AST ALT Alkaline Phosphatase Ammonia 24.90 Creatine Kinase Creatine Kinase Index CK-MB (CK-2) Troponin I Total Protein Albumin Triglycerides Cholesterol Total LDL Cholesterol HDL Cholesterol Lipase Urine Color Urine Appearance Urine pH Ur Specific [place] Urine Protein Urine Glucose (UA) Urine Ketones Urine Blood Urine Nitrite Urine Bilirubin Urine Urobilinogen Ur Leukocyte Esterase Urine WBC (Auto) Urine RBC (Auto) Urine Casts (Auto) U Pathogenic Cast Auto U Epithel Cells (Auto) Urine Crystals (Auto) Urine Bacteria (Auto) Stool Occult Blood Negative Alcohol, Quantitative Blood Type Antibody Screen 02/13/19 02/13/19 02/13/19 08:45 08:45 08:45 WBC 14.0 H RBC 3.64 L Hgb 10.6 L Hct 31.3 L D MCV 86.0 MCH 29.2 MCHC 34.0 RDW 14.8 Plt Count 65 L D MPV 8.1 Absolute Neuts (auto) 13.2 H Neutrophils % 94.2 H Neutrophils % (Manual) 93.1 H Band Neutrophils % 3.9 Lymphocytes % 2.0 L D Lymphocytes % (Manual) 3.0 L Monocytes % 3.7 L Monocytes % (Manual) 0 L Eosinophils % 0.0 Eosinophils % (Manual) 0.0 Basophils % 0.1 Basophils % (Manual) 0.0 Myelocytes % (Man) 0 Promyelocytes % (Man) 0 Blast Cells % (Manual) 0 Nucleated RBC % 0 Metamyelocytes 0 Platelet Estimate Decreased PT with INR 15.40 H INR 1.30 H PTT (Actin FS) 31.7 VBG pH POC VBG pCO2 POC VBG pO2 VBG HCO3 VBG O2 Sat (Araceli) VBG Base Excess Sodium 131 L Potassium 3.8 Chloride 98 Carbon Dioxide 24 Anion Gap 8 BUN 4.6 L Creatinine 0.5 L Est GFR (CKD-EPI)AfAm 138.44 Est GFR (CKD-EPI)NonAf 119.45 POC Glucometer Random Glucose 104 Lactic Acid Calcium 6.6 L* Phosphorus 1.7 L Magnesium 1.7 L Total Bilirubin 8.9 H AST 264 H ALT 168 H Alkaline Phosphatase 258 H Ammonia Creatine Kinase 213 Creatine Kinase Index 1.6 CK-MB (CK-2) 3.5 Troponin I 0.02 Total Protein 5.4 L Albumin 2.2 L Triglycerides 581 H Cholesterol 150 Total LDL Cholesterol 87 HDL Cholesterol 10 L Lipase Urine Color Urine Appearance Urine pH Ur Specific [place] Urine Protein Urine Glucose (UA) Urine Ketones Urine Blood Urine Nitrite Urine Bilirubin Urine Urobilinogen Ur Leukocyte Esterase Urine WBC (Auto) Urine RBC (Auto) Urine Casts (Auto) U Pathogenic Cast Auto U Epithel Cells (Auto) Urine Crystals (Auto) Urine Bacteria (Auto) Stool Occult Blood Alcohol, Quantitative Blood Type Antibody Screen 02/13/19 08:45 WBC RBC Hgb Hct MCV MCH MCHC RDW Plt Count MPV Absolute Neuts (auto) Neutrophils % Neutrophils % (Manual) Band Neutrophils % Lymphocytes % Lymphocytes % (Manual) Monocytes % Monocytes % (Manual) Eosinophils % Eosinophils % (Manual) Basophils % Basophils % (Manual) Myelocytes % (Man) Promyelocytes % (Man) Blast Cells % (Manual) Nucleated RBC % Metamyelocytes Platelet Estimate PT with INR INR PTT (Actin FS) VBG pH POC VBG pCO2 POC VBG pO2 VBG HCO3 VBG O2 Sat (Araceli) VBG Base Excess Sodium Potassium Chloride Carbon Dioxide Anion Gap BUN Creatinine Est GFR (CKD-EPI)AfAm Est GFR (CKD-EPI)NonAf POC Glucometer Random Glucose Lactic Acid 2.2 H* Calcium Phosphorus Magnesium Total Bilirubin AST ALT Alkaline Phosphatase Ammonia Creatine Kinase Creatine Kinase Index CK-MB (CK-2) Troponin I Total Protein Albumin Triglycerides Cholesterol Total LDL Cholesterol HDL Cholesterol Lipase Urine Color Urine Appearance Urine pH Ur Specific [place] Urine Protein Urine Glucose (UA) Urine Ketones Urine Blood Urine Nitrite Urine Bilirubin Urine Urobilinogen Ur Leukocyte Esterase Urine WBC (Auto) Urine RBC (Auto) Urine Casts (Auto) U Pathogenic Cast Auto U Epithel Cells (Auto) Urine Crystals (Auto) Urine Bacteria (Auto) Stool Occult Blood Alcohol, Quantitative Blood Type Antibody Screen Current Medications Generic Name Dose Route Start Last Admin Trade Name Shandra PRN Reason Stop Dose Admin Chlorhexidine Gluconate 1 applic 02/13/19 22:00 Hibiclens For Decolonization - TP HS CLEMENTINA Metronidazole 500 mg in 100 mls @ 100 mls/hr 02/13/19 05:15 02/13/19 10:00 Flagyl 500mg Premixed Ivpb - IVPB 100 mls/hr Q8H-IV CLEMENTINA Administration Lactated Ringer's 1,000 ml in 1,000 mls @ 200 mls/hr 02/13/19 12:26 02/13/19 13:15 Lactated Ringers Solution IV 200 mls/hr ASDIR CLEMENTINA Administration Ertapenem 1 gm/ Sodium 50 mls @ 100 mls/hr 02/13/19 12:30 02/13/19 14:14 Chloride IVPB 100 mls/hr DAILY CLEMENTINA Administration Potassium Phosphate 30 mm/ 260 mls @ 62.5 mls/hr 02/13/19 15:17 Dextrose IVPB 02/13/19 19:26 ONCE ONE Lorazepam 1 mg 02/13/19 05:08 02/13/19 09:30 Ativan Injection - IVPUSH 1 mg Q2H PRN Administration ANXIETY Lorazepam 2 mg 02/13/19 11:00 02/13/19 12:14 Ativan PO 02/14/19 23:01 2 mg 0500,1100,1700,2300 CLEMENTINA Administration Lorazepam 0.5 mg 02/16/19 05:00 Ativan - PO 02/16/19 23:01 Q6H CLEMENTINA Lorazepam 0.5 mg 02/16/19 00:00 Ativan - PO 02/17/19 00:00 Q4H PRN Symptoms of Withdrawal Lorazepam 0.5 mg 02/17/19 05:00 Ativan - PO 02/17/19 05:01 ONCE ONE Lorazepam 1 mg 02/15/19 05:00 Ativan - PO 02/15/19 23:01 0500,1100,1700,2300 CLEMENTINA Lorazepam 1 mg 02/13/19 09:31 Ativan - PO 02/15/19 23:59 Q4H PRN Symptoms of Withdrawal Magnesium Sulfate 1 gm 02/13/19 15:17 Magnesium Sulfate IVPB 02/13/19 15:18 ONCE ONE Morphine Sulfate 2 mg 02/13/19 05:10 Morphine Sulfate IVPUSH Q4H PRN PAIN LEVEL 6-10 Mupirocin 1 applic 02/13/19 10:00 Bactroban Ointment (For Decolonization) - NS 02/18/19 09:59 BID CLEMENTINA Pantoprazole Sodium 40 mg 02/13/19 10:00 02/13/19 10:30 Protonix Iv IVPUSH 40 mg BID [facility] Administration Home Medications Medication Instructions Recorded Sulfamethoxazole/Trimethoprim 1 tab PO BID #14 tablet 10/27/18 [Bactrim Ds -] ASSESSMENT AND PLAN: 59 year old male with history of Alcohol Abuse, Fatty Liver Disease, Meningioma , presents with abdominal pain/diaphoresis/jaundice/nausea/vomiting/hematemesis , reports auditory and visual hallucinations. No cough/sputum/hemoptysis/dysuria /hematuria/diarrhea. 1. Sepsis sec to Acute Pancreatitis, with probable necrosis CT C/A/P - fany-pancreatc stranding, hepatic steatosis, hepatomegaly, LLL effusion/atelectasis. Leukocytosis, WBC 19.8 Lactic Acid 5.1 Lipase 982 LFTs elevated Abdominal US and MRCP ordered. GI Consult NPO/IV Fluids On IV Abx Levofloxacin and Flagyl Recommended for transfer to tertiary care center - accepted to ICU at [facility]. 2. Meningioma - CT shows meningioma with frontal edema, not terribly changed from prior. Neurosurgery evaluated - no acute intervention required now. No need for chronic steroids. 3. Acute Alcoholic Hepatitis Tbil 8.9/AST 404/ALT 238 Alcohol cessation, IV fluids. Received IV Steroids. 4. Acute Alcohol withdrawal CIWA 18 Ativan as per CIWA Banana Bag given Thiamine, Folic Acid, MVI 5. Hematemesis - bright red blood after several bouts of vomiting, likely MV tear. No history or radiological evidence of Cirrhosis with portal hypertension. No history of varices. Will give IV protonix, keep NPO, IV fluids. 6. Hyponatremia, na 121 - sec to alcohol excess. IV fluids given with repeat Na 131. 7. Hypocalcemia - still low after correction - will replete. 8. Hypomagnesemia/Hypophosphatemia - will replete. 9. Thrombocytopenia sec to alcohol excess/chronic alcoholic hepatitis. Reported hematemesis. No other bleeding. NPO/IV Fluids/IV PPI/GI consult. Will monitor. DVT Px - SCDs. Dispo - awaiting ICU bed at [facility].
[2019-02-13] MEDS ORDERED: MAGNESIUM 1GM/D5W - 1 GM/100 ML IVPB IVPB ONE (15:55)
--- NOTE | 2019-02-13 16:28 | CONSULT ---
- Consultation REQUESTING PROVIDER: CONSULT REQUEST: We have been asked to surgically evaluate this patient for pancreatitis. PCP:Nirmal Reyes MD HISTORY OF PRESENT ILLNESS: This is a 59 y/o yoruba speaking M with a PMHx of ETOH abuse, chronic liver dx presenting to the ED with his girlfriend after having severe abdominal pain radiating to his back ass with nausea, vomiting, and hematochezia associated diarrhea X 4 days. Pt notes having a tea spoon of hematemesis in recent past and usually occurs with excessive alcohol intake. Pt admits to being a binge drinker. He has not seen a GI physician. Pt last drank ETOH yesterday consisting of 9 beers and a shot of tequila and decreased po intake for the past 2 days due to poor appetite. Pt endorses a 20 yr binge drinking history. Furthermore, pt endorses having a headache and tremors not associated with light or stiffness of his neck. He describes having episodes similar to seizures including shaking but not associated with postictal amnesia. Pt denies any cp, sob, constipation, chills, recent sick contacts. Of note: Patient has history of Left falcine meningioma with mild frontal mass effect- evaluated by Dr Tinajero last year 02/2018, treatment options were discussed and patient was told to follow up as an outpatient at that time. Recent Travel: denies Social History: Smoking: denies Alcohol: 20 year history of ETOH abuse Drugs: denies Allergies No Known Allergies Allergy (Verified 02/12/19 20:06) HOME MEDICATIONS: Home Medications Medication Instructions Recorded Sulfamethoxazole/Trimethoprim 1 tab PO BID #14 tablet 10/27/18 [Bactrim Ds -] PMHx: ETOH abuse Chronic liver disease Brain Meningioma PSHx: Home Medications Medication Instructions Recorded Chlorhexidine Gluconate [Hibiclens 1 applic TP HS bottle 02/13/19 For Decolonization -] Ertapenem Sodium [Invanz -] 1 gm IVPB DAILY vial 02/13/19 LORazepam [Ativan Injection -] 1 mg IVPUSH Q2H PRN vial MDD 12 02/13/19 LORazepam [Ativan] 0.5 mg PO Q4H PRN tablet MDD 3 02/13/19 LORazepam [Ativan] 0.5 mg PO Q6H tablet MDD 2 02/13/19 LORazepam [Ativan] 1 mg PO 0500,1100,1700,2300 02/13/19 tablet MDD 4 LORazepam [Ativan] 1 mg PO Q4H PRN tablet MDD 6 02/13/19 LORazepam [Ativan] 2 mg PO 0500,1100,1700,2300 02/13/19 tablet MDD 8 Lorazepam Injection [Ativan 2 mg IVPUSH Q1H PRN disp.syrin 02/13/19 Injection -] MDD 12 Morphine Sulfate 2 mg IVPUSH Q4H PRN vial MDD 12 02/13/19 Mupirocin Ointment [Bactroban 1 applic NS BID applic 02/13/19 Ointment (For Decolonization) -] Pantoprazole Sodium [Protonix IV] 40 mg IVPUSH BID vial 02/13/19 Allergies Allergy/AdvReac Type Severity Reaction Status Date / Time No Known Allergies Allergy Verified 02/12/19 20:06 REVIEW OF SYSTEMS: CONSTITUTIONAL: Absent: fever, chills, diaphoresis, generalized weakness, malaise, loss of appetite, weight change CARDIOVASCULAR: Absent: chest pain, syncope, palpitations, irregular heart rate, lightheadedness , peripheral edema RESPIRATORY: Absent: cough, shortness of breath, dyspnea with exertion, wheezing, stridor, hemoptysis GASTROINTESTINAL: Absent: abdominal pain, abdominal distension, nausea, vomiting, diarrhea, constipation, melena, hematochezia GENITOURINARY: Absent: dysuria, frequency, urgency, hesitancy, hematuria, flank pain, genital pain MUSCULOSKELETAL: Absent: myalgia, arthralgia, joint swelling, back pain, neck pain SKIN: Absent: rash, itching, pallor HEMATOLOGIC/IMMUNOLOGIC: Absent: easy bleeding, easy bruising, lymphadenopathy NEUROLOGIC: Absent: headache, focal weakness, paresthesias, dizziness, unsteady gait, seizure, mental status changes, bladder or bowel incontinence PSYCHIATRIC: Absent: anxiety, depression, suicidal or homicidal ideation, hallucinations. PHYSICAL EXAM: GENERAL: Awake, alert, and fully oriented, in no acute distress. HEAD: Normal with no signs of trauma. EYES: PERRL, sclera anicteric, conjunctiva clear. NECK: Normal ROM, supple without lymphadenopathy, JVD, or masses. LUNGS: Clear to auscultation bilat anteriorly. No wheezes, and no crackles. No accessory muscle use. HEART: Regular rate and rhythm. No murmurs ABDOMEN: Soft, nontender, not distended, normoactive bowel sounds, no guarding, no rebound, no masses. No organomegaly. MUSCULOSKELETAL: Normal ROM at all joints. No bony deformities or tenderness. No CVA tenderness. UPPER EXTREMITIES: 2+ pulses, warm, well-perfused. No cyanosis. Cap refill <2 seconds. No peripheral edema. LOWER EXTREMITIES: 2+ pulses, warm, well-perfused. No calf tenderness. No peripheral edema. NEUROLOGICAL: Normal speech, gait not observed. PSYCH: Cooperative. Good eye contact. Appropriate mood and affect. SKIN: Warm, dry, normal turgor, no rashes or lesions noted. Vital Signs Temperature 99.4 F 02/13/19 15:30 Pulse Rate 121 H 02/13/19 15:30 Respiratory Rate 18 02/13/19 13:00 Blood Pressure 152/88 02/13/19 15:30 O2 Sat by Pulse Oximetry (%) 92 L 02/13/19 15:30 Lab Results WBC 14.0 K/mm3 (4.0-10.0) H 02/13/19 08:45 RBC 3.64 M/mm3 (4.00-5.60) L 02/13/19 08:45 Hgb 10.6 GM/dL (11.7-16.9) L 02/13/19 08:45 Hct 31.3 % (35.4-49) L D 02/13/19 08:45 MCV 86.0 fl (80-96) 02/13/19 08:45 MCHC 34.0 g/dl (32.0-35.9) 02/13/19 08:45 RDW 14.8 % (11.9-15.9) 02/13/19 08:45 Plt Count 65 K/MM3 (134-434) L D 02/13/19 08:45 Sodium 131 mmol/L (136-145) L 02/13/19 08:45 Potassium 3.8 mmol/L (3.5-5.1) 02/13/19 08:45 Chloride 98 mmol/L (98-107) 02/13/19 08:45 Carbon Dioxide 24 mmol/L (21-32) 02/13/19 08:45 Anion Gap 8 MMOL/L (8-16) 02/13/19 08:45 BUN 4.6 mg/dL (7-18) L 02/13/19 08:45 Creatinine 0.5 mg/dL (0.55-1.3) L 02/13/19 08:45 Random Glucose 104 mg/dL (74-106) 02/13/19 08:45 Calcium 6.6 mg/dL (8.5-10.1) L* 02/13/19 08:45 Blood Type O POSITIVE 02/12/19 21: Antibody Screen Negative 02/12/19 21: INR 1.30 (0.83-1.09) H 02/13/19 08:45 Images: CTAP- Peripancreatic fat stranding, consistent with acute pancreatitis. Hypodensity in pancreatic tail region may represent pancreatic necrosis. No organized pseudocyst. Hepatomegaly and steatosis. Dilated gallbladder, which can be seen with fasting state. Gallbladder sludge. No bowel obstruction or inflammation. No free fluid or free air. No evidence for appendicitis. Unremarkable spleen, stomach, kidneys. One or more of the following dose reduction techniques were used: automated exposure control, adjustment of the mA and/or kV according to patient size, use of iterative reconstructive technique." CT Head: 1. There is 2.5 cm mass within the left paracentral frontal lobe, may be extra- axial and may represent a meningioma. There is small amount of vasogenic edema/mass effect. This can be further evaluated with MRI of the brain without and with intravenous contrast. 2. Otherwise, no acute intracranial hemorrhage, extra-axial fluid collection, or acute territorial infarction demonstrated. 3. Mild sinus disease."
[2019-02-13] MEDS ORDERED: POTASSIUM PHOSPHATE 30 MM in DEXTROSE 5%-WATER - 500 ML IVPB ONE (16:30)
--- NOTE | 2019-02-13 16:35 | DS ---
Physical Exam: SUBJECTIVE: Patient seen and examined in the morning. No acute events overnight. No complaints of chest pain,shortness of breath. Complains of abdominal pain. 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 EYES: scleral icterus present ENT: Ears normal, nares patent, oropharynx clear without exudates, moist mucous membranes. NECK: Trachea midline, full range of motion, supple. LUNGS: Breath sounds equal, clear to auscultation bilaterally, no wheezes, no crackles, no accessory muscle use. HEART: Regular rate and rhythm, S1, S2 without murmur, rub or gallop. ABDOMEN: Distended abdomen, no fluid shift, hepatomegaly. Tender to palpation in the upper right and left quadrant. Normoactive bowel sounds. EXTREMITIES: 2+ pulses, warm, well-perfused, no edema. NEUROLOGICAL: Cranial nerves II through XII grossly intact. Normal speech. Endorses auditory and visual hallucinations. Slight tremor. PSYCH: Normal mood, normal affect. No thoughts or voices of hurting oneself. SKIN: Warm, dry, normal turgor, no rashes or lesions noted. Not jaundiced. CIWA 19 LABS Laboratory Results - last 24 hr 02/12/19 02/12/19 02/12/19 21:26 21:26 21:26 WBC 19.8 H RBC 4.60 Hgb 13.2 Hct 39.8 MCV 86.6 MCH 28.8 MCHC 33.3 RDW 15.4 Plt Count 90 L MPV 8.9 D Absolute Neuts (auto) 17.9 H Neutrophils % 90.4 H Neutrophils % (Manual) Band Neutrophils % Lymphocytes % 6.3 L Lymphocytes % (Manual) Monocytes % 3.0 L Monocytes % (Manual) Eosinophils % 0.0 Eosinophils % (Manual) Basophils % 0.3 Basophils % (Manual) Myelocytes % (Man) Promyelocytes % (Man) Blast Cells % (Manual) Nucleated RBC % 0 Metamyelocytes Platelet Estimate PT with INR INR PTT (Actin FS) VBG pH POC VBG pCO2 POC VBG pO2 VBG HCO3 VBG O2 Sat (Araceli) VBG Base Excess Sodium 121 L Potassium 3.8 Chloride 87 L Carbon Dioxide 20 L Anion Gap 13 BUN 7.4 Creatinine 0.8 Est GFR (CKD-EPI)AfAm 114.13 Est GFR (CKD-EPI)NonAf 98.47 POC Glucometer Random Glucose 124 H Lactic Acid 5.1 H* Calcium 7.0 L Phosphorus Magnesium Total Bilirubin 9.9 H AST 404 H ALT 238 H Alkaline Phosphatase 337 H Ammonia Creatine Kinase Creatine Kinase Index CK-MB (CK-2) Troponin I 0.05 Total Protein 6.8 Albumin 2.9 L Triglycerides Cholesterol Total LDL Cholesterol HDL Cholesterol Lipase 982 H Urine Color Urine Appearance Urine pH Ur Specific [place] Urine Protein Urine Glucose (UA) Urine Ketones Urine Blood Urine Nitrite Urine Bilirubin Urine Urobilinogen Ur Leukocyte Esterase Urine WBC (Auto) Urine RBC (Auto) Urine Casts (Auto) U Pathogenic Cast Auto U Epithel Cells (Auto) Urine Crystals (Auto) Urine Bacteria (Auto) Stool Occult Blood Alcohol, Quantitative 317.8 H Blood Type Antibody Screen 02/12/19 02/12/19 02/12/19 21:26 21:26 21:26 WBC RBC Hgb Hct MCV MCH MCHC RDW Plt Count MPV Absolute Neuts (auto) Neutrophils % Neutrophils % (Manual) Band Neutrophils % Lymphocytes % Lymphocytes % (Manual) Monocytes % Monocytes % (Manual) Eosinophils % Eosinophils % (Manual) Basophils % Basophils % (Manual) Myelocytes % (Man) Promyelocytes % (Man) Blast Cells % (Manual) Nucleated RBC % Metamyelocytes Platelet Estimate PT with INR INR PTT (Actin FS) VBG pH 7.47 H POC VBG pCO2 28.2 L POC VBG pO2 73.0 H VBG HCO3 20.3 L VBG O2 Sat (Araceli) 93.4 H VBG Base Excess -1.8 Sodium Potassium Chloride Carbon Dioxide Anion Gap BUN Creatinine Est GFR (CKD-EPI)AfAm Est GFR (CKD-EPI)NonAf POC Glucometer Random Glucose Lactic Acid Calcium Phosphorus Magnesium Total Bilirubin AST ALT Alkaline Phosphatase Ammonia Creatine Kinase Creatine Kinase Index CK-MB (CK-2) Troponin I Total Protein Albumin Triglycerides Cholesterol Total LDL Cholesterol HDL Cholesterol Lipase Urine Color Dk yellow Urine Appearance Cloudy Urine pH 5.5 D Ur Specific [place] 1.022 Urine Protein 1+ H Urine Glucose (UA) Negative Urine Ketones Negative Urine Blood 2+ H Urine Nitrite Positive H Urine Bilirubin 3+ H Urine Urobilinogen 1.0 Ur Leukocyte Esterase Trace Urine WBC (Auto) 1 Urine RBC (Auto) 1 Urine Casts (Auto) 12 U Pathogenic Cast Auto 3-5 U Epithel Cells (Auto) 0.5 Urine Crystals (Auto) None seen Urine Bacteria (Auto) 0.5 Stool Occult Blood Alcohol, Quantitative Blood Type O POSITIVE Antibody Screen Negative 02/12/19 02/12/19 02/12/19 21:45 22:17 22:17 WBC RBC Hgb Hct MCV MCH MCHC RDW Plt Count MPV Absolute Neuts (auto) Neutrophils % Neutrophils % (Manual) Band Neutrophils % Lymphocytes % Lymphocytes % (Manual) Monocytes % Monocytes % (Manual) Eosinophils % Eosinophils % (Manual) Basophils % Basophils % (Manual) Myelocytes % (Man) Promyelocytes % (Man) Blast Cells % (Manual) Nucleated RBC % Metamyelocytes Platelet Estimate PT with INR INR PTT (Actin FS) VBG pH POC VBG pCO2 POC VBG pO2 VBG HCO3 VBG O2 Sat (Araceli) VBG Base Excess Sodium Potassium Chloride Carbon Dioxide Anion Gap BUN Creatinine Est GFR (CKD-EPI)AfAm Est GFR (CKD-EPI)NonAf POC Glucometer 139 Random Glucose Lactic Acid Calcium Phosphorus Magnesium Total Bilirubin AST ALT Alkaline Phosphatase Ammonia 24.90 Creatine Kinase Creatine Kinase Index CK-MB (CK-2) Troponin I Total Protein Albumin Triglycerides Cholesterol Total LDL Cholesterol HDL Cholesterol Lipase Urine Color Urine Appearance Urine pH Ur Specific [place] Urine Protein Urine Glucose (UA) Urine Ketones Urine Blood Urine Nitrite Urine Bilirubin Urine Urobilinogen Ur Leukocyte Esterase Urine WBC (Auto) Urine RBC (Auto) Urine Casts (Auto) U Pathogenic Cast Auto U Epithel Cells (Auto) Urine Crystals (Auto) Urine Bacteria (Auto) Stool Occult Blood Negative Alcohol, Quantitative Blood Type Antibody Screen 02/13/19 02/13/19 02/13/19 08:45 08:45 08:45 WBC 14.0 H RBC 3.64 L Hgb 10.6 L Hct 31.3 L D MCV 86.0 MCH 29.2 MCHC 34.0 RDW 14.8 Plt Count 65 L D MPV 8.1 Absolute Neuts (auto) 13.2 H Neutrophils % 94.2 H Neutrophils % (Manual) 93.1 H Band Neutrophils % 3.9 Lymphocytes % 2.0 L D Lymphocytes % (Manual) 3.0 L Monocytes % 3.7 L Monocytes % (Manual) 0 L Eosinophils % 0.0 Eosinophils % (Manual) 0.0 Basophils % 0.1 Basophils % (Manual) 0.0 Myelocytes % (Man) 0 Promyelocytes % (Man) 0 Blast Cells % (Manual) 0 Nucleated RBC % 0 Metamyelocytes 0 Platelet Estimate Decreased PT with INR 15.40 H INR 1.30 H PTT (Actin FS) 31.7 VBG pH POC VBG pCO2 POC VBG pO2 VBG HCO3 VBG O2 Sat (Araceli) VBG Base Excess Sodium 131 L Potassium 3.8 Chloride 98 Carbon Dioxide 24 Anion Gap 8 BUN 4.6 L Creatinine 0.5 L Est GFR (CKD-EPI)AfAm 138.44 Est GFR (CKD-EPI)NonAf 119.45 POC Glucometer Random Glucose 104 Lactic Acid Calcium 6.6 L* Phosphorus 1.7 L Magnesium 1.7 L Total Bilirubin 8.9 H AST 264 H ALT 168 H Alkaline Phosphatase 258 H Ammonia Creatine Kinase 213 Creatine Kinase Index 1.6 CK-MB (CK-2) 3.5 Troponin I 0.02 Total Protein 5.4 L Albumin 2.2 L Triglycerides 581 H Cholesterol 150 Total LDL Cholesterol 87 HDL Cholesterol 10 L Lipase Urine Color Urine Appearance Urine pH Ur Specific [place] Urine Protein Urine Glucose (UA) Urine Ketones Urine Blood Urine Nitrite Urine Bilirubin Urine Urobilinogen Ur Leukocyte Esterase Urine WBC (Auto) Urine RBC (Auto) Urine Casts (Auto) U Pathogenic Cast Auto U Epithel Cells (Auto) Urine Crystals (Auto) Urine Bacteria (Auto) Stool Occult Blood Alcohol, Quantitative Blood Type Antibody Screen 02/13/19 08:45 WBC RBC Hgb Hct MCV MCH MCHC RDW Plt Count MPV Absolute Neuts (auto) Neutrophils % Neutrophils % (Manual) Band Neutrophils % Lymphocytes % Lymphocytes % (Manual) Monocytes % Monocytes % (Manual) Eosinophils % Eosinophils % (Manual) Basophils % Basophils % (Manual) Myelocytes % (Man) Promyelocytes % (Man) Blast Cells % (Manual) Nucleated RBC % Metamyelocytes Platelet Estimate PT with INR INR PTT (Actin FS) VBG pH POC VBG pCO2 POC VBG pO2 VBG HCO3 VBG O2 Sat (Araceli) VBG Base Excess Sodium Potassium Chloride Carbon Dioxide Anion Gap BUN Creatinine Est GFR (CKD-EPI)AfAm Est GFR (CKD-EPI)NonAf POC Glucometer Random Glucose Lactic Acid 2.2 H* Calcium Phosphorus Magnesium Total Bilirubin AST ALT Alkaline Phosphatase Ammonia Creatine Kinase Creatine Kinase Index CK-MB (CK-2) Troponin I Total Protein Albumin Triglycerides Cholesterol Total LDL Cholesterol HDL Cholesterol Lipase Urine Color Urine Appearance Urine pH Ur Specific [place] Urine Protein Urine Glucose (UA) Urine Ketones Urine Blood Urine Nitrite Urine Bilirubin Urine Urobilinogen Ur Leukocyte Esterase Urine WBC (Auto) Urine RBC (Auto) Urine Casts (Auto) U Pathogenic Cast Auto U Epithel Cells (Auto) Urine Crystals (Auto) Urine Bacteria (Auto) Stool Occult Blood Alcohol, Quantitative Blood Type Antibody Screen HOSPITAL COURSE: Date of Admission:02/13/19 Date of Discharge: 02/13/19 59 M PMHx of ETOH abuse, alcoholic fatty liver disease, meningioma, presenting to the [facility] [place] after having severe abdominal pain radiating to his back with nausea, vomiting, and hematochezia associated diarrhea for the past 4 days. Patient was seen to have a lactate of 5.1, and lipase of 982,with T bili of 9.9 , AST of 404, ALT of 238, ALP of 337. Patient was started on Lactated ringers of 125 ml/hr and on a CIWA protocol after his initial CIWA was rated at 19 due to auditory and visual hallucination. Patient had a CT Abdomen/Pelvis completed which showed: There is peripancreatic stranding. The tail of the pancreas is prominent in size with peripancreatic edema, underlying necrosis cannot excluded. The pancreatic duct is not dilated. Stranding extends to the periampullary renal space on the left side. Findings suggest pancreatitis, follow-up imaging is advised. Necrotic pancreatitis could not be ruled out and patient was given. Patient was started on ertapenem 1 gram IVPB. Patient is accepted to [facility] ICU however, higher level of care is needed. Patient is accepted for transfer to Dr. Brunson at [facility]. Imaging done this admission: Ct Abdomen Pelvis: Small left pleural effusion with left lower lobe atelectasis as discussed above. Pancreatitis with possible necrosis of the pancreatic tail as discussed above, consider followup imaging.Hepatic steatosis with hepatomegaly. Trace ascites was identified. Ultrasound abdomen: Hepatomegaly and diffuse fatty infiltration of the liver. Head CT: Predominantly left-sided parafalcine meningioma in the anterior cranial fossa. Focal peritumoral edema noted in the left frontal lobe. No interval change from prior examinations. No evidence of acute intracranial hemorrhage, midline shift, mass effect, or skull fracture. No CT evidence of acute territorial infarction. Minutes to complete discharge: 30 Discharge Summary Problems reviewed: Yes Reason For Visit: ELEVATED TRANSAMINASE MEASUREMENT, MASS OF BRAIN Current Active Problems Acute pancreatitis (Acute) Brain mass (Acute) Transaminitis (Acute) Condition: Stable - Instructions Diet, Activity, Other Instructions: 59 M PMHx of ETOH abuse, alcoholic fatty liver disease, meningioma, presenting to the [facility] [place] after having severe abdominal pain radiating to his back with nausea, vomiting, and hematochezia associated diarrhea for the past 4 days. Patient was seen to have a lactate of 5.1, and lipase of 982,with T bili of 9.9 , AST of 404, ALT of 238, ALP of 337. Patient was started on Lactated ringers of 125 ml/hr and on a CIWA protocol after his initial CIWA was rated at 19 due to auditory and visual hallucination. Patient had a CT Abdomen/Pelvis completed which showed: There is peripancreatic stranding. The tail of the pancreas is prominent in size with peripancreatic edema, underlying necrosis cannot excluded. The pancreatic duct is not dilated. Stranding extends to the periampullary renal space on the left side. Findings suggest pancreatitis, follow-up imaging is advised. Necrotic pancreatitis could not be ruled out and patient was given Levaquin 750and flagyl 500. Patient is accepted to [facility] ICU however, higher level of care is needed. Patient is accepted for transfer to Dr. Brunson at [facility]. Please continue all running medications and drips at your tertiary level care center. Referrals: Luis Miguel Brunson M.D [Other] Disposition: TRANSFER ACUTE CARE/OTHER HOSP - Home Medications Comprehensive Discharge Medication List: Ambulatory Orders Chlorhexidine Gluconate [Hibiclens For Decolonization -] 1 applic TP HS bottle 02/13/19 Ertapenem Sodium [Invanz -] 1 gm IVPB DAILY vial 02/13/19 LORazepam [Ativan Injection -] 1 mg IVPUSH Q2H PRN vial MDD 12 02/13/19 LORazepam [Ativan] 0.5 mg PO Q4H PRN tablet MDD 3 02/13/19 LORazepam [Ativan] 0.5 mg PO Q6H tablet MDD 2 02/13/19 LORazepam [Ativan] 1 mg PO 0500,1100,1700,2300 tablet MDD 4 02/13/19 LORazepam [Ativan] 1 mg PO Q4H PRN tablet MDD 6 02/13/19 LORazepam [Ativan] 2 mg PO 0500,1100,1700,2300 tablet MDD 8 02/13/19 Lorazepam Injection [Ativan Injection -] 2 mg IVPUSH Q1H PRN disp.syrin MDD 12 02/13/19 Morphine Sulfate 2 mg IVPUSH Q4H PRN vial MDD 12 02/13/19 Mupirocin Ointment [Bactroban Ointment (For Decolonization) -] 1 applic NS BID applic 02/13/19 Pantoprazole Sodium [Protonix IV] 40 mg IVPUSH BID vial 02/13/19 This patient is new to me today: Yes Date on this admission: 02/13/19 Emergency Visit: Yes ED Registration Date: 02/13/19 Care time: The patient presented to the Emergency Department on the above date and was hospitalized for further evaluation of their emergent condition. Critical Care patient: Yes Total Critical Care Time (in minutes): 30 Critical Care Statement: The care of this patient involved high complexity decision making to prevent further life threatening deterioration of the patient 's condition and/or to evaluate & treat vital organ system(s) failure or risk of failure. - Discharge Referral Referred to [facility] No ATTENDING PHYSICIAN STATEMENT I saw and evaluated the patient. I reviewed the resident's note and discussed the case with the resident. I agree with the resident's findings and plan as documented. SUBJECTIVE: OBJECTIVE: ASSESSMENT AND PLAN:
[2019-02-13 17:14] VITALS: BP 140/119; PULSE 122
[2019-02-13] MEDS ORDERED: CHLORHEXIDINE GLUCONATE 4% CLEANSER FOR DECOLONIZATION TP SCH (22:00)
[2019-02-15] MEDS ORDERED: LORazepam 1 MG TABLET PO SCH (05:00)
[2019-02-16] MEDS ORDERED: LORazepam 0.5 MG TABLET PO PRN
[2019-02-16] MEDS ORDERED: LORazepam 0.5 MG TABLET PO SCH (05:00)
[2019-02-17] MEDS ORDERED: LORazepam 0.5 MG TABLET PO ONE (05:00)
== END 2019-02-13 18:00 | disposition short-term general hospital (02) | DRG 720 ==
LOC: JER 19:57 → JERBED 02-13 01:59
PROVIDERS: ADMIT Internal Medicine
DX: A41.9 Sepsis, unspecified organism (principal); G93.6 Cerebral edema; K85.21 Alcohol induced acute pancreatitis with uninfected necrosis; J90 Pleural effusion, not elsewhere classified; K92.0 Hematemesis; E88.09 Other disorders of plasma-protein metabolism, not elsewhere classified; E87.1 Hypo-osmolality and hyponatremia; E83.51 Hypocalcemia; D69.6 Thrombocytopenia, unspecified; E83.42 Hypomagnesemia; E83.39 Other disorders of phosphorus metabolism; J98.11 Atelectasis; E66.9 Obesity, unspecified; Z68.30 Body mass index [BMI] 30.0-30.9, adult; R74.0 Nonspecific elevation of levels of transaminase and lactic acid dehydrogenase [LDH]; F10.230 Alcohol dependence with withdrawal, uncomplicated; F10.220 Alcohol dependence with intoxication, uncomplicated; D32.0 Benign neoplasm of cerebral meninges; K70.10 Alcoholic hepatitis without ascites
CPT/HCPCS: 36415; 70450-TC; 71045-TC-FY; 71260-TC; 74177-TC; 76705-TC; 80053; 80061; 80307; 81003; 82140; 82272; 82550; 82553; 82803; 82962; 83605; 83690; 83721; 83735; 84100; 84484; 85025; 85610; 85730; 86850; 86900; 86901; 87040; 87086; 93005; 93010; 99285-25; J7030; Q9967